=== PATIENT | male | born 1965 | race Caucasian/White ===

== ENCOUNTER 2022-11-14 10:27 | Emergency (ER) | payer MEDICAID, SELFPAY ==
--- NOTE | ~2022-11-14 | XR_ITS ---
X-RAY LUMBAR SPINE X-RAY SACRUM/COCCYX CLINICAL HISTORY: Fall, pain. COMPARISON: No relevant prior studies are available for comparison. TECHNIQUE: 3 views of the lumbar spine. 2 views of the sacrum/coccyx. FINDINGS: Lumbar spine: Age indeterminate compression deformity of the L2 vertebral body. No significant retropulsion or traumatic subluxation. Mild retrolisthesis of L5 on S1, likely degenerative. Moderate intervertebral disc height loss and facet arthropathy at L5-S1. No significant paraspinal soft tissue abnormality. A 0.6 cm radiopaque focus projecting over the lower left renal fossae could represent a calculus. Sacrum/coccyx: No displaced fractures or malalignment. SI joints are symmetric. Pubic symphysis is maintained. 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 XR/XR lumbar spine 2-3V IMPRESSION: 1. Age-indeterminate compression deformity of the L2 vertebral body. Correlate for point tenderness. 2. No traumatic subluxation. 3. Moderate lumbar spondylosis at L5-S1. 4. Possible 0.6 cm left renal calculus. If clinically indicated correlation with with a renal ultrasound could be obtained.
--- NOTE | ~2022-11-14 | XR_ITS ---
X-RAY LUMBAR SPINE X-RAY SACRUM/COCCYX CLINICAL HISTORY: Fall, pain. COMPARISON: No relevant prior studies are available for comparison. TECHNIQUE: 3 views of the lumbar spine. 2 views of the sacrum/coccyx. FINDINGS: Lumbar spine: Age indeterminate compression deformity of the L2 vertebral body. No significant retropulsion or traumatic subluxation. Mild retrolisthesis of L5 on S1, likely degenerative. Moderate intervertebral disc height loss and facet arthropathy at L5-S1. No significant paraspinal soft tissue abnormality. A 0.6 cm radiopaque focus projecting over the lower left renal fossae could represent a calculus. Sacrum/coccyx: No displaced fractures or malalignment. SI joints are symmetric. Pubic symphysis is maintained. 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 XR/XR sacrum coccyx min 2V IMPRESSION: 1. Age-indeterminate compression deformity of the L2 vertebral body. Correlate for point tenderness. 2. No traumatic subluxation. 3. Moderate lumbar spondylosis at L5-S1. 4. Possible 0.6 cm left renal calculus. If clinically indicated correlation with with a renal ultrasound could be obtained.
[2022-11-14 10:35] VITALS: BP 143/86; BP 153/93; PULSE 82; PULSE 89; RESP 20; TEMP 36.5; O2SAT 96; O2SAT 99; BMI 29.1
--- NOTE | 2022-11-14 10:44 | ED.FALL ---
HPI - Fall General Chief Complaint: Fall Stated Complaint: Low back pain per EMS Time Seen by Provider: 11/14/22 10:28 Source: patient and EMS Mode of arrival: EMS Limitations: no limitations History of Present Illness HPI Narrative: 57 yo male with history of IDDM, osteomyleitis in right foot not currently on antibiotics but followed by wound care, chronic back pain on oxycodone 10 mg q.4 hours for pain who presents to the ER after a slip and fall. Patient reports that he was in his bathroom and a pill bottle was underneath a blanket. Patient stepped on the pill bottle causing him to fall backwards landing on his lower back. Patient denies hitting his head or loss of consciousness. Patient reports this caused his oxycodone bottle to spill and all the pills to fall onto the ground. Patient reports he was planning on taking his dose of oxycodone but was unable to take this due to the fall. Patient reports chronic back pain due to an injury 12 years ago with subsequent disc injuries the lumbar spine. Patient denies any radiation of pain. No numbness or tingling of the extremities. No bowel or bladder incontinence. No saddle anesthesia. No fevers or chills. Patient reports he did hit his right foot during the fall but most of his pain is in his back. Related Data Allergies Allergy/AdvReac Type Severity Reaction Status Date / Time acetaminophen [From Vicodin] Allergy Severe Unknown Verified 11/14/22 10:34 hydrocodone [From Vicodin] Allergy Severe Unknown Verified 11/14/22 10:34 shellfish derived Allergy Severe Anaphylaxis Verified 11/14/22 10:34 Review of Systems Review of Systems: Yes all other systems are reviewed and are negative Constitutional: Constitutional: Reports no additional constitutional complaints, Denies body ache(s), Denies chills, Denies fever(s), Denies headache(s) and Denies weakness Eyes: Eyes: Reports no additional eye complaints and Denies change in vision ENT: Reports system reviewed and no additional complaints, except as documented, Denies dizziness, Denies headache(s), Denies nasal congestion, Denies nasal discharge and Denies neck pain Cardiovascular: Cardiovascular: Reports no additional cardiovascular complaints, Denies chest pain, Denies leg edema and Denies dyspnea Respiratory: Respiratory: Reports no additional respiratory complaints, Denies cough and Denies dyspnea Gastrointestinal: Gastrointestinal: Reports no additional gastrointestinal complaints, Denies abdominal pain, Denies diarrhea, Denies nausea and Denies vomiting Genitourinary: Genitourinary: Denies urinary incontinence Musculoskeletal: Musculoskeletal: Reports no additional musculoskeletal complaints, Reports back pain, Reports arthralgias, Denies joint swelling, Denies neck pain, Denies numbness and Denies tingling Integumentary/Breasts: Skin/Breast: Reports system reviewed and no additional complaints, except as docu and Denies rash Neurologic: Reports system reviewed and no additional complaints, except as documented, Denies Abnormal speech present, Denies dizziness, Denies headache(s), Denies numbness, Denies tingling and Denies weakness PMFSH Past Medical History Attestation statement: The following information was validated with the patient. Source: old records reviewed and nursing notes reviewed Medical History Anxiety Diabetes Hypertension Lower back injury Osteomyelitis of right foot Social History Social History Alcohol intake: current Alcohol intake frequency: holidays/special occasions only Smoked in Last 30 Days: No Use of substances other than those prescribed or required for medical reasons: Yes Substance Use Type: Marijuana Advance Directives: Yes Advance Directives Information Provided: Yes Advance Directives on File: No Physical Exam Vital Signs: Vital Signs: Last Vital Signs Temp 97.7 F 11/14/22 10:35 Pulse 82 11/14/22 10:35 Resp 20 11/14/22 10:35 BP 143/86 H 11/14/22 10:35 Pulse Ox 96 11/14/22 10:35 O2 Del Method Room Air 11/14/22 10:35 BMI result Body Mass Index 29.1 Const: General: cooperative, healthy appearing, comfortable and no acute distress Orientation/consciousness: patient oriented x3 Limitations: no limitations HEENT: Head: Yes normal to inspection Ears: hearing grossly normal bilaterally General nose exam: Normal external nose present Face and sinus: Yes normal facial exam Mouth: Normal oral and palatal mucosa present Throat: Yes posterior oropharynx normal Eyes: General: appearance normal, both eyes and all related structures Pupils: Equal, round and reactive pupils present Neck: Neck: Yes normal visual inspection Chest: Chest palpation & inspection: normal inspection of the chest Resp: Effort & Inspection: normal respiratory effort Auscultation: clear to auscultation bilaterally Cardio: Rate: regular rate Rhythm: regular rhythm Peripheral pulses: Peripheral pulses 2+ throughout GI: Inspection: Yes normal to inspection Palpation (GI): Soft to palpation and nontender Auscultation: normal bowel sounds Back/Spine/Pelvis: Other: +lumbar TTP to no step offs or deformities Straight leg raise normal bilaterally. Thoracic/Lumbar Spine: thoracic and lumbar spine normal to inspection Skin: General skin exam: no rashes or lesions noted Neuro: General: patient oriented x3, moves all extremities, no focal motor deficits and normal sensation to monofilament Cranial nerves: Yes CN's II-XII intact bilaterally, Yes Equal, round and reactive pupils present, Yes Bilaterally intact EOM present, Yes Nystagmus not present, Yes Normal facial strength present and Yes Midline tongue present Cognition (Neuro): normal cognition Speech: No Abnormal speech present Gait exam (Neuro): Normal gait present Motor exam (neuro): 5/5 motor strength present throughout Sensory Exam: Normal double simultaneous stimulation for sensation Deep tendon reflexes (DTR's): Right patellar reflex intensity grade: 2+ and Left patellar reflex intensity grade: 2+ Extrem: Other: To the sole of the right foot there is a wound noted with clean skin margins, no surrounding erythema.swelling or tenderness General: Yes normal to inspection Course Course Course Narrative: X-ray show IMPRESSION: 1.? Age-indeterminate compression deformity of the L2 vertebral body. Correlate for point tenderness. 2.? No traumatic subluxation. 3.? Moderate lumbar spondylosis at L5-S1. 4.? Possible 0.6 cm left renal calculus. If clinically indicated correlation with with a renal ultrasound could be obtained. Patient reports history of lumbar fractures in the past. This is not likely new. I did tell him this reports results. We did speak about the possible left renal calculi. He has no flank pain, vomiting, urinary symptoms, fever. Patient was instructed to follow-up with primary care doctor for renal ultrasound if necessary. We did discuss if he were to develop any of the symptoms he should return to the ER for further evaluation. Patient agreeable with this. Patient requesting additional oxycodone to go home with. Reviewed mass pat. Patient fills 140 tablets of 10mg on the 7th of the month. I explained to the patient that I could not give this to him. Patient will follow-up with his primary care doctor. Reviewed worrisome signs and symptoms when to return to the emergency room. Comfortable plan for discharge home for Medications Administered Discontinued Medications Generic Name Dose Route Start Last Admin Trade Name Kamryn PRN Reason Stop Dose Admin Oxycodone HCl 10 mg 11/14/22 11:14 11/14/22 11:34 Oxycodone Hcl Immed Release 5 Mg Tablet PO 11/14/22 11:15 10 mg ONCE ONE Administration Medical Decision Making Medical Decision Making MDM Narrative: 57 yo male with history of IDDM, wound on right foot, chronic back pain on chronic opiates here after mechanical fall which occurred just [employer]. Patient with tenderness on palpation of the lumbar spine and coccyx with no step-offs deformities Due to trauma will check x-rays Patient will be dose with his dose of oxycodone No overt neurological deficits or red flag symptoms on exam Differential Diagnosis Differential Diagnoses: The differential diagnosis associated with the presentation includes Doubt fracture, epidural hematoma Lab Data MDM Lab Attestation statement: I reviewed the patient's lab results. Independent Interpretation I performed an independent interpretation of an: Plain X-Ray Interpretation: I indepedentely reviewed the x-ray and agree with the radiologist report Radiology Impression Discussion of test interpretation with radiology: I have reviewed the radiologist's reading. Radiologist Impression: [place] [id number] XRay Report Signed Patient: Tyler Thomas MR#: [id number] : 1965 Acct:[id number] Age/Sex: 57 / M ADM Date: 11/14/22 Loc: HO.ED Attending Dr: Ordering Physician: Waleska Muñiz NP Date of Service: 11/14/22 Procedure(s): XR lumbar spine 2-3V Accession Number(s): [id number] cc: Waleska Muñiz NP~ X-RAY LUMBAR SPINE X-RAY SACRUM/COCCYX CLINICAL HISTORY: Fall, pain. COMPARISON:? No relevant prior studies are available for comparison. TECHNIQUE: 3 views of the lumbar spine. 2 views of the sacrum/coccyx. FINDINGS:? Lumbar spine: Age indeterminate compression deformity of the L2 vertebral body. No significant retropulsion or traumatic subluxation. Mild retrolisthesis of L5 on S1, likely degenerative. Moderate intervertebral disc height loss and facet arthropathy at L5-S1. No significant paraspinal soft tissue abnormality. A 0.6 cm radiopaque focus projecting over the lower left renal fossae could represent a calculus. Sacrum/coccyx: No displaced fractures or malalignment. SI joints are symmetric. Pubic symphysis is maintained. 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 XR/XR lumbar spine 2-3V IMPRESSION: 1.? Age-indeterminate compression deformity of the L2 vertebral body. Correlate for point tenderness. 2.? No traumatic subluxation. 3.? Moderate lumbar spondylosis at L5-S1. 4.? Possible 0.6 cm left renal calculus. If clinically indicated correlation with with a renal ultrasound could be obtained. ? Discharge Plan Discharge Clinical Impression: Compression fracture Patient Disposition: Home, Self-Care Instructions: Vertebral Compression Fracture (ED) Additional Instructions: You have a compression fracture at L2. this is age indeterminate so it may be old. Incidentally you may have a kidney stone on the left side and you may need additional outpatient follow-up for this. It is not causing your pain today. Return for urinary symptoms, fever, flank pain. Continue your home medications. Referrals: Flako Callahan MD [Primary Care Provider] - 1 week Interventions: ED Discharge Assessment Last Done: 11/14/22 12:24 Discharge Date/Time: 11/14/22 12:25
--- OUTSIDE RECORDS SUMMARY | 2022-11-14 10:50 | XMS_ITS | Continuity of Care Document ---
Author Name Unknown Organization [facility] Address [address] [place] [address]- Care Team Providers Care Cisco Network Architect Name Role Phone Ruben Callahan DOmekhi Donis Primary Care Physician [place] [facility] [place]s): 10/20/19 - 12/03/19 [facility] [address] [place] [address]- [facility] Attending Physician: Cachorro Nielsen MD Admitting Physician: Cachorro Nielsen MD Allergies, Adverse Reactions, Alerts Substance Reaction Severity Status shellfish 1 hives Active Vicodin Shellfish allergy Active 1Pt states it is only crab and lobster that he is allergic to, and that he has had iv contrast dye in the past Immunizations Given and Recorded Vaccine Date Status Refusal Reason influenza virus vaccine, inactivated 09/23/18 Give n pneumococcal 23-valent vaccine 08/01/12 Given Medications Cardizem CD 120 mg/24 hours oral capsule, extended release 120 mg, 1, capsule, By Mouth, Daily, # 30 capsule, Refills 0, Tot. Refills 0, Maintenance, :17:00 EST, Route to Pharmacy Electronically, [facility]/pharmacy #[id number], 183, cm, 09/17/19 7:23:00 EST, Height, 99.4, kg, 09/16/19 12:50:00 EST, Dry Weight Start Date: 09/17/19 Status: Ordered Flax Seed Oil oral capsule 1 capsule, By Mouth, Daily, 0 Refills, Maintenance, 04/01/19 16:16:13 EDT Start Date: 04/01/19 Status: Ordered Humalog Cartridge Subcutaneous Infusion, 0 Refills, Maintenance, 09/08/18 2:01:18 EST Start Date: 09/08/18 Status: Ordered meloxicam 15 mg oral tablet 1 tablet = 15 mg, By Mouth, Daily, # 30 tablet, 1 Refills, Maintenance, 11/29/19 8:23:00 EDT, Tablet, [facility]/pharmacy #[id number], 183, cm, 10/19/19 9:35:00 EST, Height, 99.4, kg, 09/16/19 12:50:00 EST, Dry Weight Start Date: 11/29/19 Status: Ordered Multivitamin 1, Daily, 0 Refills, Maintenance, 12/21/16 16:21:05 Start Date: 12/21/16 Status: Ordered Omeprazole = 20 mg, By Mouth, Daily, 0 Refills, Maintenance, 04/02/19 16:25:08 EDT Start Date: 04/02/19 Status: Ordered oxyCODONE 5 mg oral tablet 5 mg, 1, tablet, By Mouth, Every 6 hours, PRN, # 10 tablet, Refills 0, Tot. Refills 0, Maintenance,Pain , Severe, 09/14/19 11:11:00 EST, Route to Pharmacy Electronically, [facility]/pharmacy #[id number], Partialfill upon patient request, 183, cm, 09/14/19 9:28:0... Start Date: 09/14/19 Status: Ordered Vitamin C 1000 mg oral tablet 1 tablet = 1,000 mg, By Mouth, Daily, # 30 tablet, 0 Refills, Maintenance, 07/13/19 8:13:25 EST, Tablet Start Date: 07/13/19 Status: Ordered Vitamin D 81736 iu oral capsule 50,000 International_Units, 1, capsule, By Mouth, Every week, Refills 0, Maintenance, 04/01/19 16:15:52 EDT Start Date: 04/01/19 Status: Ordered Xarelto 20 mg oral tablet 1 tablet = 20 mg, By Mouth, Daily before dinner, 0 Refills, Maintenance, 09/07/19 8:14:00 EST Start Date: 09/07/19 Status: Ordered Social History Social History Type Response Smoking Status Never smoker entered on: 04/28/18 Sex
--- OUTSIDE RECORDS SUMMARY | 2022-11-14 10:50 | XMS_ITS | Continuity of Care Document ---
Author Name Unknown Organization [facility] [place] [address] [place] [address]- Care Team Providers Care Livestock Buyer Name Role Phone Enrico Flako LANDRY Primary Care Physician Encounter [facility] [place] Date(s): 03/09/21 - 04/14/21 [facility] [address] [facility] [address] [place] [address] [place] [phone] Attending Physician: Asuncion MAYBERRY, Luis A Admitting Physician: Asuncion MAYBERRY, Luis A Allergies, Adverse Reactions, Alerts Substance Reaction Severity Status shellfish 1 hives Active Vicodin Shellfish allergy Active 1Pt states it is only crab and lobster that he is allergic to, and that he has had iv contrast dye in the past Immunizations Given and Recorded Vaccine Date Status Refusal Reason influenza virus vaccine, inactivated 09/23/18 Give n pneumococcal 23-valent vaccine 08/01/12 Given Medications acetaminophen-oxycodone 325 mg-10 mg oral tablet 1 tablet, By Mouth, Every 4 hours, PRN Pain , Moderate, TAKE 1 TABLET BY MOUTH EVERY 4 HOURS DO NOTEXCEED 5 TABS DAILY, 0 Refills Start Date: 03/16/21 Status: Ordered amLODIPine 10 mg oral tablet 10 mg, 1, tablet, By Mouth, Daily, # 90 tablet, Refills 0, Maintenance, 04/11/20 6:57:00 EDT Start Date: 04/11/20 Status: Ordered atorvastatin 40 mg oral tablet 1 tablet = 40 mg, By Mouth, Daily, 0 Refills, Maintenance, 10/26/20 15:14:00 EST, Partial fill uponpatient request if the prescription is for a schedule II opioid drug. Start Date: 10/26/20 Status: Ordered Dakins Half Strength 0.25% topical solution See Instructions, apply to wound for 15 minutes, # 1 Unknown, 0 Refills, Maintenance, 11/09/20 8:47:00 EDT, [facility]/pharmacy #[id number], Partial fill upon patient request if the prescription is for a scheduleII opioid drug., apply to wound for 15 minutes, 182... Start Date: 11/09/20 Status: Ordered febuxostat 40 mg oral tablet 1 tablet = 40 mg, By Mouth, Daily, TAKE 1 TABLET BY MOUTH EVERY DAY Start Date: 10/08/20 Status: Ordered Flax Seed Oil oral capsule 1 capsule, By Mouth, Daily, 0 Refills, Maintenance, 04/01/19 16:16:13 EDT Start Date: 04/01/19 Status: Ordered flecainide 100 mg oral tablet 100 mg, 1, tablet, By Mouth, Every 12 hours, # 60 tablet, Refills 3, Tot. Refills 3, Maintenance, 04/12/20 9:51:00 EDT, Route to Pharmacy Electronically, [facility]/pharmacy #[id number], 183, cm, 04/12/20 8:00:00EDT, Height, 103, kg, 04/11/20 6:30:00 EDT, Dry Weight Start Date: 04/12/20 Stop Date: 08/10/20 Status: Ordered Humalog 100 u/ml subcutaneous injection Subcutaneous Injection, 3 times a day before meals, PRN Blood Glucose, Sliding scale depending on blood sugar and carbs per meal Start Date: 10/08/20 Status: Ordered indomethacin 25 mg oral capsule 1 capsule = 25 mg, By Mouth, 3 times a day, PRN for arthritis, # 30 capsule, 0 Refills, Maintenance, 12/03/20 17:17:00 EDT, Capsule, Partial fill upon patient request if the prescription is for a schedule II opioid drug. Start Date: 12/03/20 Status: Ordered Lantus 100 u/ml subcutaneous solution = 36 units, Subcutaneous Injection, Daily, at noon Start Date: 10/08/20 Status: Ordered lisinopril 10 mg oral tablet 20 mg, 2, tablet, By Mouth, Daily, # 30 tablet, Refills 0, Maintenance, 04/11/20 6:27:00 EDT Start Date: 04/11/20 Status: Ordered LORazepam 0.5 mg oral tablet 1 tablet = 0.5 mg, By Mouth, Every 8 hours, PRN as needed for anxiety, TAKE 1 TABLET BY MOUTH EVERY8 HOURS NEEDED FOR ANXIETY. Start Date: 03/16/21 Status: Ordered Lyrica 50 mg oral capsule 1 capsule = 50 mg, By Mouth, 2 times a day, # 60 capsule, 2 Refills, Maintenance, 12/21/20 10:03:00EDT, Capsule, [facility], Partial fill upon patient request if the prescription is for a schedule II opioid drug., 183, cm, 12/21/20 9:04... Start Date: 12/21/20 Stop Date: 03/21/21 Status: Ordered Metoprolol Succinate ER 50 mg oral tablet, extended release 1 tablet = 50 mg, By Mouth, Daily Start Date: 03/16/21 Status: Ordered mirtazapine 15 mg oral tablet 1 tablet = 15 mg, By Mouth, Daily at bedtime, # 30 tablet, 0 Refills, Maintenance, 04/11/20 6:59:00EDT, Tablet Start Date: 04/11/20 Status: Ordered Multivitamin 1 tablet, By Mouth, Daily, 0 Refills, Maintenance, 12/21/16 16:21:05 EDT Start Date: 12/21/16 Status: Ordered Omeprazole = 20 mg, By Mouth, Daily, 0 Refills, Maintenance, 04/02/19 16:25:08 EDT Start Date: 04/02/19 Status: Ordered ondansetron 4 mg oral tablet, disintegrating 1 tablet = 4 mg, By Mouth, Every 8 hours, PRN as needed for nausea/vomiting, # 12 tablet, 0 Refills, Maintenance, 03/08/20 19:56:00 EDT, DIS Tablet, [facility]/pharmacy #[id number], 183, cm, 03/08/20 16:59:00 EDT, Height, 108, kg, 03/08/20 16:59:00 EDT, Dry Weight Start Date: 03/08/20 Stop Date: 03/11/20 Status: Ordered probenecid 500 mg oral tablet 500 mg, 1, tablet, By Mouth, Daily, Refills 0, Maintenance, 12/12/20 16:05:00 EDT, Partial fill upon patient request if the prescription is for a schedule II opioid drug. Start Date: 12/12/20 Status: Ordered Tylenol 325 mg oral tablet 650 mg, 2, tablet, By Mouth, Every 4 hours, PRN, Refills 0, Maintenance, Pain , Moderate, 12/21/20 10:02:00 EDT, Partial fill upon patient request if the prescription is for a schedule II opioid drug. Start Date: 12/21/20 Status: Ordered Vitamin C 1000 mg oral tablet 1 tablet = 1,000 mg, By Mouth, Daily, 0 Refills, Maintenance, 12/03/20 12:07:00 EDT, Partial fill upon patient request if the prescription is for a schedule II opioid drug. Start Date: 12/03/20 Status: Ordered Vitamin D3 5000 intl units oral capsule 1 capsule = 5,000 International_Units, By Mouth, Daily, with food, # 250 capsule, 0 Refills, Maintenance, 10/26/20 15:13:00 EST, Capsule, Partial fill upon patient request if the prescription is for a schedule II opioid drug. Start Date: 10/26/20 Status: Ordered Problem List Condition Effective Dates Status Health Status Inform ant Afib(Confirmed) Active Atrial flutter(Confirmed) Active CKD stage 3(Confirmed) Active Diabetes mellitus(Confirmed) Active Diabetic foot ulcer(Confirmed) Active Peripheral neuropathy(Confirmed) Active Social History Social History Type Response Tobacco Other: none. Sex
--- OUTSIDE RECORDS SUMMARY | 2022-11-14 10:50 | XMS_ITS | Continuity of Care Document ---
Author Name Unknown Organization [facility] Address [address] [place] [address]- Care Team Providers Care Graphic Manager Name Role Phone Sindy Flako LANDRY Primary Care Physician Encounter [facility] [place] Date(s): 01/15/21 - 02/14/21 [facility] [address] [facility] [address] [place] [id number] [phone] Attending Physician: Cachorro Nielsen MD Admitting Physician: [...] pneumococcal 23-valent vaccine 08/01/12 Given Medications acetaminophen-oxycodone 300 mg-5 mg oral tablet 1 tablet, By Mouth, Every 6 hours, PRN Pain , Moderate, 0 Refills, Maintenance, 12/03/20 20:24:00 EDT, Partial fill upon patient request if the prescription is for a schedule II opioid drug. Start Date: 12/03/20 Status: Ordered amLODIPine 10 mg oral tablet [...] Unknown, 0 Refills, Maintenance, 11/09/20 8:47:00 EDT, [facility]/pharmacy #[id number], Partial fill upon patient request if [...] 04/12/20 9:51:00 EDT, Route to Pharmacy Electronically, [facility]/pharmacy #[id number], 183, cm, 04/12/20 8:00:00EDT, Height, 103, kg, 04/11/20 6:30:00 EDT, Dry Weight Start Date: 04/12/20 Stop Date: 08/10/20 Status: Ordered Humalog 100 u/ml subcutaneous injection 3 times a day before meals Start Date: 10/08/20 Status: Ordered indomethacin 25 [...] 6:27:00 EDT Start Date: 04/11/20 Status: Ordered Lyrica 50 mg oral capsule 1 capsule = 50 mg, By Mouth, 2 times a day, # 60 capsule, 2 Refills, Maintenance, 12/21/20 10:03:00EDT, Capsule, [facility], Partial fill upon patient request if the prescription is for a schedule II opioid drug., 183, cm, 12/21/20 9:04... Start Date: 12/21/20 Stop Date: 03/21/21 Status: Ordered metoprolol 25 mg oral tablet 25 mg, 1, tablet, By Mouth, Daily, Refills 0, Maintenance, 12/12/20 16:06:00 EDT, Partial fill uponpatient request if the prescription is for a schedule II opioid drug. Start Date: 12/12/20 Status: Ordered mirtazapine 15 mg oral tablet [...] Refills, Maintenance, 03/08/20 19:56:00 EDT, DIS Tablet, [facility]/pharmacy #[id number], 183, cm, 03/08/20 16:59:00 EDT, Height, [...] 2, tablet, By Mouth, Every 4 hours, Refills 0, Maintenance, 12/21/20 10:02:00 EDT, Partial fill upon patient [...] Active Social History Social History Type Response Smoking Status Never smoker entered on: 04/28/18 Sex
--- OUTSIDE RECORDS SUMMARY | 2022-11-14 10:50 | XMS_ITS | Continuity of Care Document ---
Author Name Unknown Organization [facility] W[facility] Address [address] [place] [address]- Care Team Providers Care Records Management Coordinator Name Role Phone Sindy Flako LANDRY Primary Care Physician Encounter [facility] Date(s): 01/18/21 - 02/20/21 [facility] [address] [facility] [address] [place] [id number] [phone] Attending Physician: Cachorro Nielsen MD Admitting Physician: [...] Unknown, 0 Refills, Maintenance, 11/09/20 8:47:00 EDT, [facility]/pharmacy #[id number], Partial fill upon patient request [...] 04/12/20 9:51:00 EDT, Route to Pharmacy Electronically, [facility]/pharmacy #[id number], 183, cm, 04/12/20 8:00:00EDT, Height, [...] capsule, 2 Refills, Maintenance, 12/21/20 10:03:00EDT, Capsule, [facility], Partial fill upon patient request [...] Refills, Maintenance, 03/08/20 19:56:00 EDT, DIS Tablet, [facility]/pharmacy #[id number], 183, cm, 03/08/20 16:59:00 EDT, [...]
--- OUTSIDE RECORDS SUMMARY | 2022-11-14 10:50 | XMS_ITS | Continuity of Care Document ---
Author Name Unknown Organization [facility] Address [address] [place] [address]- Care Team Providers Care Environmental Engineer Scientist Name Role Phone Ruben Callahan DOn Gagandeep Primary Care Physician Encounter [facility] Date(s): 03/07/20 - 04/07/20 [facility] [address] [place] [address]- [facility] Attending Physician: Cachorro Nielsen MD [...] n pneumococcal 23-valent vaccine 08/01/12 Given Medications acetaminophen-oxyCODONE 325 mg-5 mg oral tablet 1, tablet, By Mouth, Every 4 hours, PRN, # 5 tablet, Refills 0, Tot. Refills 0, Maintenance, for pain, 03/25/20 0:20:00 EDT, Route to Pharmacy Electronically, [facility]/pharmacy #[id number] Tablet, Partial fill upon patient request, 183, cm, 03/25/20 0:19:00 EDT,... Start Date: 03/25/20 Status: Ordered Cardizem CD 120 mg/24 hours oral capsule, extended release 120 mg, 1, capsule, By Mouth, Daily, # 30 capsule, Refills 0, Tot. Refills 0, Maintenance, 209:17:00 EST, Route to Pharmacy Electronically, [facility]/pharmacy #[id number], 183, cm, 09/17/19 7:23:00 EST, Height, 99.4, kg, 09/16/19 12:50:00 EST, Dry Weight Start Date: 09/17/19 Status: Ordered Eliquis 2.5 mg oral tablet 1 tablet = 2.5 mg, By Mouth, 2 times a day, 0 Refills, Maintenance, 12/22/19 9:28:00 EDT Start Date: 12/22/19 Status: Ordered Eliquis 2.5 mg oral tablet 1 tablet = 2.5 mg, By Mouth, 2 times a day, 0 Refills, Maintenance, 02/23/20 8:50:00 EDT Start Date: 02/23/20 Status: Ordered Flax Seed Oil oral capsule 1 capsule, By Mouth, Daily, 0 Refills, Maintenance, 04/01/19 16:16:13 EDT Start Date: 04/01/19 Status: Ordered Humalog Cartridge Subcutaneous Infusion, 0 Refills, Maintenance, 09/08/18 2:01:18 EST Start Date: 09/08/18 Status: Ordered Lasix 20 mg oral tablet 20 mg, 1, tablet, By Mouth, Daily, Refills 0, Maintenance, 02/08/20 8:44:00 EDT Start Date: 02/08/20 Status: Ordered meloxicam 15 mg oral tablet 1 tablet = 15 mg, By Mouth, Daily, # 30 tablet, 1 Refills, Maintenance, 01/30/20 13:36:00 EDT, Tablet, [facility]/pharmacy #[id number], 183, cm, 01/19/20 9:23:00 EDT, Height, 99.4, kg, 09/16/19 12:50:00 EST, Dry Weight Start Date: 01/30/20 Status: Ordered Multivitamin 1, Daily, 0 Refills, [...] Refills, Maintenance, 03/08/20 19:56:00 EDT, DIS Tablet, [facility]/pharmacy #[id number], 183, cm, 03/08/20 16:59:00 EDT, Height, 108, kg, 03/08/20 16:59:00 EDT, Dry Weight Start Date: 03/08/20 Stop Date: 03/11/20 Status: Ordered oxyCODONE 5 mg oral tablet 5 mg, 1, tablet, By Mouth, Every 6 hours, PRN, # 10 tablet, Refills 0, Tot. Refills 0, Maintenance,Pain , Severe, 09/14/19 11:11:00 EST, Route to Pharmacy Electronically, [facility]/pharmacy #[id number], Partialfill upon patient request, 183, cm, 09/14/19 9:28:0... Start Date: 09/14/19 Status: Ordered Vitamin C 1000 mg oral tablet 1 tablet = 1,000 mg, By Mouth, Daily, # 30 tablet, 0 Refills, Maintenance, 07/13/19 8:13:25 EST, Tablet Start Date: 07/13/19 Status: Ordered Vitamin D 89565 iu oral capsule 50,000 International_Units, 1, capsule, [...]
--- OUTSIDE RECORDS SUMMARY | 2022-11-14 10:50 | XMS_ITS | Continuity of Care Document ---
Author Name Unknown Organization [facility] Address [address] [place] [address]- Care Team Providers Care Slabbing Machine Operator Name Role Phone Flako Callahan DO Primary Care Physician Encounter [facility] Date(s): 08/06/20 - 09/05/20 [facility] W[facility] Care [address] [place], [place] [address] Attending Physician: Lion Vann Admitting Physician: AdmtrLion Referring Physician: AdmtrLion Allergies, Adverse Reactions, Alerts Substance Reaction Severity [...] 03/25/20 0:20:00 EDT, Route to Pharmacy Electronically, [facility]/pharmacy #[id number] Tablet, Partial fill upon patient request, 183, cm, 03/25/20 0:19:00 EDT,... Start Date: 03/25/20 Status: Ordered amLODIPine 10 mg oral tablet 10 mg, 1, tablet, By Mouth, Daily, # 90 tablet, Refills 0, Maintenance, 04/11/20 6:57:00 EDT Start Date: 04/11/20 Status: Ordered Eliquis 5 mg oral tablet 1 tablet = 5 mg, By Mouth, 2 times a day, 0 Refills, Maintenance, 04/12/20 9:50:00 EDT, Tablet Start Date: 04/12/20 Status: Ordered Flax Seed Oil oral capsule 1 capsule, By Mouth, Daily, 0 Refills, Maintenance, 04/01/19 16:16:13 EDT Start Date: 04/01/19 Status: Ordered flecainide 100 mg oral tablet 100 mg, 1, tablet, By Mouth, Every 12 hours, # 60 tablet, Refills 3, Tot. Refills 3, Maintenance, 04/12/20 9:51:00 EDT, Route to Pharmacy Electronically, [facility]/pharmacy #[id number], 183, cm, 04/12/20 8:00:00EDT, Height, 103, kg, 04/11/20 6:30:00 EDT, Dry Weight Start Date: 04/12/20 Stop Date: 08/10/20 Status: Ordered Humalog Cartridge Subcutaneous Infusion, 0 Refills, Maintenance, 09/08/18 2:01:18 EST Start Date: 09/08/18 Status: Ordered Lasix 20 mg oral tablet 20 mg, 1, tablet, By Mouth, Daily, Refills 0, Maintenance, 02/08/20 8:44:00 EDT Start Date: 02/08/20 Status: Ordered lisinopril 10 mg oral tablet 20 mg, 2, tablet, By Mouth, Daily, # 30 tablet, Refills 0, Maintenance, 04/11/20 6:27:00 EDT Start Date: 04/11/20 Status: Ordered meloxicam 15 mg oral tablet 1 tablet = 15 mg, By Mouth, Daily, # 30 tablet, 1 Refills, Maintenance, 04/20/20 16:24:00 EDT, [facility]/pharmacy #[id number], 183, cm, 04/17/20 14:57:00 EDT, Height, 103.5, kg, 04/14/20 14:39:00 EDT, Dry Weight Start Date: 04/20/20 Status: Ordered metoprolol 50 mg oral tablet 50 mg, 1, tablet, By Mouth, Daily, # 60 tablet, Refills 0, Maintenance, 04/11/20 6:58:00 EDT Start Date: 04/11/20 Status: Ordered mirtazapine 15 mg oral tablet 1 tablet = 15 mg, By Mouth, Daily at bedtime, # 30 tablet, 0 Refills, Maintenance, 04/11/20 6:59:00EDT, Tablet Start Date: 04/11/20 Status: Ordered Multivitamin 1, Daily, 0 Refills, [...] Refills, Maintenance, 03/08/20 19:56:00 EDT, DIS Tablet, [facility]/pharmacy #[id number], 183, cm, 03/08/20 16:59:00 EDT, Height, 108, kg, 03/08/20 16:59:00 EDT, Dry Weight Start Date: 03/08/20 Stop Date: 03/11/20 Status: Ordered oxyCODONE 5 mg oral tablet 5 mg, 1, tablet, By Mouth, Every 6 hours, PRN, # 10 tablet, Refills 0, Tot. Refills 0, Maintenance,Pain , Severe, 09/14/19 11:11:00 EST, Route to Pharmacy Electronically, [facility]/pharmacy #[id number], Partialfill upon patient request, 183, cm, 09/14/19 9:28:0... Start Date: 09/14/19 Status: Ordered Vitamin C 1000 mg oral tablet 1 tablet = 1,000 mg, By Mouth, Daily, # 30 tablet, 0 Refills, Maintenance, 07/13/19 8:13:25 EST, Tablet Start Date: 07/13/19 Status: Ordered Vitamin D 02121 iu oral capsule 50,000 International_Units, 1, capsule, By Mouth, Every week, Refills 0, Maintenance, 04/01/19 16:15:52 EDT Start Date: 04/01/19 Status: Ordered Problem List Condition Effective Dates Status Health Status Inform ant Afib(Confirmed) Active Atrial flutter(Confirmed) Active Social History Social History Type Response Smoking Status Never smoker entered on: 04/28/18 Sex
--- OUTSIDE RECORDS SUMMARY | 2022-11-14 10:50 | XMS_ITS | Continuity of Care Document ---
Author Name Unknown Organization [facility] Address [address] [place] [address]- Care Team Providers Care Director Of Vocational Training Name Role Phone Flako Callahan DO Primary Care Physician Encounter [facility] Date(s): 11/28/20 - 12/29/20 [facility] [address] [address] [phone] Attending Physician: Cachorro Nielsen MD Admitting Physician: [...] 6:57:00 EDT Start Date: 04/11/20 Status: Ordered aspirin 81 mg oral tablet, chewable 81 mg, 1, tablet, By Mouth, Daily, # 30 tablet, Refills 2, Tot. Refills 2, Maintenance, 12/21/20 10:03:00 EDT, [facility], Partial fill upon patient request if the prescription is for a schedule II opioi... Start Date: 12/21/20 Stop Date: 03/21/21 Status: Ordered atorvastatin 40 mg oral tablet 1 tablet = 40 mg, By Mouth, Daily, 0 Refills, Maintenance, 10/26/20 15:14:00 EST, Partial fill uponpatient request if the prescription is for a schedule II opioid drug. Start Date: 10/26/20 Status: Ordered Dakins Half Strength 0.25% topical solution See Instructions, apply to wound for 15 minutes, # 1 Unknown, 0 Refills, Maintenance, 11/09/20 8:47:00 EDT, [facility]/pharmacy #[id number], Partial fill upon patient request if [...] 04/12/20 9:51:00 EDT, Route to Pharmacy Electronically, [facility]/pharmacy #[id number], 183, cm, 04/12/20 8:00:00EDT, Height, 103, kg, 04/11/20 6:30:00 EDT, Dry Weight Start Date: 04/12/20 Stop Date: 08/10/20 Status: Ordered gabapentin 100 mg oral capsule 100 mg, 1, capsule, By Mouth, 3 times a day, # 90 capsule, Refills 2, Tot. Refills 2, Maintenance, 12/21/20 10:03:00 EDT, Route to Pharmacy Electronically, [facility], Partial fill uponpatient request if the prescription is for a schedu... Start Date: 12/21/20 Stop Date: 03/21/21 Status: Ordered Humalog 100 u/ml subcutaneous injection [...] capsule, 2 Refills, Maintenance, 12/21/20 10:03:00EDT, Capsule, [facility], Partial fill upon patient request if [...] Refills, Maintenance, 03/08/20 19:56:00 EDT, DIS Tablet, [facility]/pharmacy #[id number], 183, cm, 03/08/20 16:59:00 EDT, Height, [...]
--- OUTSIDE RECORDS SUMMARY | 2022-11-14 10:50 | XMS_ITS | Continuity of Care Document ---
Author Name Unknown Organization [facility] Address [address] [place] [address]- Care Team Providers Care Sulphate Tester Name Role Phone Sindy Flako LANDRY Primary Care Physician [phone] Encounter [facility] Date(s): 03/08/21 - 04/13/21 [facility] [address] [facility] [address] [place] [address] [phone] Attending Physician: Cachorro Nielsen MD Admitting Physician: [...] Unknown, 0 Refills, Maintenance, 11/09/20 8:47:00 EDT, [facility]/pharmacy #[id number], Partial fill upon patient request [...] 04/12/20 9:51:00 EDT, Route to Pharmacy Electronically, [facility]/pharmacy #[id number], 183, cm, 04/12/20 8:00:00EDT, Height, [...] capsule, 2 Refills, Maintenance, 12/21/20 10:03:00EDT, Capsule, [facility], Partial fill upon patient request [...] Refills, Maintenance, 03/08/20 19:56:00 EDT, DIS Tablet, [facility]/pharmacy #[id number], 183, cm, 03/08/20 16:59:00 EDT, [...]
--- OUTSIDE RECORDS SUMMARY | 2022-11-14 10:50 | XMS_ITS | Continuity of Care Document ---
Author Name Unknown Organization [facility] Address [address] [place] [address]- Care Team Providers Care Golf Teacher Name Role Phone Sindy Flako LANDRY Primary Care Physician Encounter [facility] Date(s): 02/28/21 - 04/05/21 [facility] Care [address] [address] [phone] Attending Physician: Cachorro Nielsen MD Admitting Physician: [...] Unknown, 0 Refills, Maintenance, 11/09/20 8:47:00 EDT, [facility]/pharmacy #[id number], Partial fill upon patient request [...] 04/12/20 9:51:00 EDT, Route to Pharmacy Electronically, [facility]/pharmacy #[id number], 183, cm, 04/12/20 8:00:00EDT, Height, [...] capsule, 2 Refills, Maintenance, 12/21/20 10:03:00EDT, Capsule, [facility], Partial fill upon patient [...]
--- OUTSIDE RECORDS SUMMARY | 2022-11-14 10:50 | XMS_ITS | Continuity of Care Document ---
Author Name Unknown Organization [facility] Address [address] [place] [address]- Care Team Providers Care Facility Sales And Admin Name Role Phone Sindy Flako LANDRY Primary Care Physician En[place] [facility] Date(s[facility] 10/26/20 - 11/02/20 [facility] Care [address] [place], [place] [address] Attending Physician: Luis A Roland NP Admitting Physician: Luis A Roland NP Referring Physician: Luis A Roland NP Allergies, Adverse Reactions, Alerts Substance Reaction Severity Status shellfish 1 hives Active Vicodin Shellfish allergy Active 1Pt states it is only crab and lobster that he is allergic to, and that he has had iv contrast dye in the past Immunizations Given and Recorded Vaccine Date Status Refusal Reason influenza virus vaccine, inactivated 09/23/18 Give n pneumococcal 23-valent vaccine 08/01/12 Given Medications amLODIPine 10 mg oral tablet 10 mg, [...] opioid drug. Start Date: 10/26/20 Status: Ordered doxycycline monohydrate 100 mg oral tablet = 100 mg, By Mouth, Every 12 hours, # 12 capsule, 0 Refills, Acute 11/07/20 10:00:00 EDT, 11/01/20 14:53:00 EDT, Tablet, [id number], Partial fill upon patient request if the prescription is for a schedule II opioid drug., 182, cm, 11/01/20 11:... Start Date: 11/01/20 Stop Date: 11/07/20 Status: Ordered febuxostat 40 mg oral tablet [...] 04/12/20 9:51:00 EDT, Route to Pharmacy Electronically, [facility]/pharmacy #[id number], 183, cm, 04/12/20 8:00:00EDT, Height, 103, kg, 04/11/20 6:30:00 EDT, Dry Weight Start Date: 04/12/20 Stop Date: 08/10/20 Status: Ordered Humalog 100 u/ml subcutaneous injection 3 times a day before meals Start Date: 10/08/20 Status: Ordered Lantus 100 u/ml subcutaneous solution = 10 units, Subcutaneous Injection, Daily, at noon Start Date: 10/08/20 Status: Ordered lisinopril 10 mg oral tablet 20 mg, 2, tablet, By Mouth, Daily, # 30 tablet, Refills 0, Maintenance, 04/11/20 6:27:00 EDT Start Date: 04/11/20 Status: Ordered Metoprolol Succinate ER 50 mg oral tablet, extended release 1 tablet = 50 mg, By Mouth, Daily, TAKE 1 TABLET BY MOUTH EVERY DAY Start Date: 10/08/20 Status: Ordered mirtazapine 15 mg oral tablet [...] Refills, Maintenance, 03/08/20 19:56:00 EDT, DIS Tablet, [facility]/pharmacy #[id number], 183, cm, 03/08/20 16:59:00 EDT, Height, 108, kg, 03/08/20 16:59:00 EDT, Dry Weight Start Date: 03/08/20 Stop Date: 03/11/20 Status: Ordered Percocet 10 mg-325 mg oral tablet 1 tablet, By Mouth, Every 4 hours, # 18 tablet, 0 Refills, Acute 11/04/20 10:00:00 EDT, 11/01/20 14:54:00 EDT, [facility]/pharmacy #[id number], Partial fill upon patient request if the prescription is for a schedule II opioid drug., 1 tablet By Mouth Every 4 hours... Start Date: 11/01/20 Stop Date: 11/04/20 Status: Ordered Probenecid 100 mg, By Mouth, 2 times a day, Refills 0, Maintenance, 10/26/20 15:10:00 EST, Partial fill upon patient request if the prescription is for a schedule II opioid drug. Start Date: 10/26/20 Status: Ordered Vitamin D3 5000 intl units [...]
--- OUTSIDE RECORDS SUMMARY | 2022-11-14 10:50 | XMS_ITS | Continuity of Care Document ---
Author Name Unknown Organization [facility] Address [address] [place] [address]- Care Team Providers Care Sustainable Agriculture Faculty Name Role Phone Sindy Flako LANDRY Primary Care Physician [phone] Encounter [facility] Date(s): 02/25/21 - 03/28/21 [facility] Care [address] [address] [phone] Attending Physician: Cachorro Nielsen MD Admitting Physician: [...] Unknown, 0 Refills, Maintenance, 11/09/20 8:47:00 EDT, [facility]/pharmacy #[id number], Partial fill upon patient [...] 04/12/20 9:51:00 EDT, Route to Pharmacy Electronically, [facility]/pharmacy #[id number], 183, cm, 04/12/20 8:00:00EDT, [...] capsule, 2 Refills, Maintenance, 12/21/20 10:03:00EDT, Capsule, [facility], Partial fill upon patient [...] Refills, Maintenance, 03/08/20 19:56:00 EDT, DIS Tablet, [facility]/pharmacy #[id number], 183, cm, 03/08/20 16:59:00 [...]
--- OUTSIDE RECORDS SUMMARY | 2022-11-14 10:50 | XMS_ITS | Continuity of Care Document ---
Author Name Unknown Organization [facility] Address [address] [place] [address]- Care Team Providers Care High Lighter Name Role Phone Sindy Flako LANDRY Primary Care Physician Encounter [facility] Date(s): 01/18/21 - 02/21/21 [facility] 48 [facility] [address] [place] [address] [phone] Attending Physician: Cachorro Nielsen MD Admitting Physician: [...] Unknown, 0 Refills, Maintenance, 11/09/20 8:47:00 EDT, [facility]/pharmacy #[id number], Partial fill upon patient request if [...] 04/12/20 9:51:00 EDT, Route to Pharmacy Electronically, [facility]/pharmacy #[id number], 183, cm, 04/12/20 8:00:00EDT, Height, 103, [...] capsule, 2 Refills, Maintenance, 12/21/20 10:03:00EDT, Capsule, [facility], Partial fill upon patient request [...] Refills, Maintenance, 03/08/20 19:56:00 EDT, DIS Tablet, [facility]/pharmacy #[id number], 183, cm, 03/08/20 16:59:00 EDT, Height, [...]
--- OUTSIDE RECORDS SUMMARY | 2022-11-14 10:50 | XMS_ITS | Continuity of Care Document ---
Author Name Unknown Organization [facility] Address [address] [place] [address]- Care Team Providers Care Professor Of Oceanography Name Role Phone Enrico Flako LANDRY Primary Care Physician Encounter [facility] Date(s): 04/06/20 - 05/12/20 [facility] W[facility] Care [address] [place] [address] [facility] Attending Physician: Cachorro Nielsen MD Admitting Physician: [...] 03/25/20 0:20:00 EDT, Route to Pharmacy Electronically, [facility]/pharmacy #[id number] Tablet, Partial fill upon patient [...] 04/12/20 9:51:00 EDT, Route to Pharmacy Electronically, [facility]/pharmacy #[id number], 183, cm, 04/12/20 8:00:00EDT, Height, [...] tablet, 1 Refills, Maintenance, 04/20/20 16:24:00 EDT, [facility]/pharmacy #[id number], 183, cm, 04/17/20 14:57:00 EDT, Height, [...] Refills, Maintenance, 03/08/20 19:56:00 EDT, DIS Tablet, [facility]/pharmacy #[id number], 183, cm, 03/08/20 16:59:00 EDT, Height, 108, kg, 03/08/20 16:59:00 EDT, Dry Weight Start Date: 03/08/20 Stop Date: 03/11/20 Status: Ordered oxyCODONE 5 mg oral tablet 5 mg, 1, tablet, By Mouth, Every 6 hours, PRN, # 10 tablet, Refills 0, Tot. Refills 0, Maintenance,Pain , Severe, 09/14/19 11:11:00 EST, Route to Pharmacy Electronically, [facility]/pharmacy #[id number], Partialfill upon patient request, 183, cm, 09/14/19 9:28:0... Start Date: 09/14/19 Status: Ordered Vitamin C 1000 mg oral tablet 1 tablet = 1,000 mg, By Mouth, Daily, # 30 tablet, 0 Refills, Maintenance, 07/13/19 8:13:25 EST, Tablet Start Date: 07/13/19 Status: Ordered Vitamin D 28172 iu oral capsule 50,000 International_Units, 1, capsule, By Mouth, Every week, Refills 0, Maintenance, 04/01/19 16:15:52 EDT Start Date: 04/01/19 Status: Ordered Problem List Condition Effective Dates Status Health Status Inform ant Afib(Confirmed) Active Atrial flutter(Confirmed) Active Social History Social History Type Response Smoking Status Never smoker entered on: 04/28/18 Sex
--- OUTSIDE RECORDS SUMMARY | 2022-11-14 10:50 | XMS_ITS | Continuity of Care Document ---
Author Name Unknown Organization [facility] Address [address] [place] [address]- Care Team Providers Care Real Estate Legal Secretary Name Role Phone Sindy Flako LANDRY Primary Care Physician Encounter [facility] Date(s): 04/05/21 - 05/08/21 [facility] [address] [address] [phone] Attending Physician: Cachorro Nielsen MD Admitting Physician: [...] Unknown, 0 Refills, Maintenance, 11/09/20 8:47:00 EDT, [facility]/pharmacy #[id number], Partial fill upon patient request [...] 04/12/20 9:51:00 EDT, Route to Pharmacy Electronically, [facility]/pharmacy #[id number], 183, cm, 04/12/20 8:00:00EDT, Height, [...] capsule, 2 Refills, Maintenance, 12/21/20 10:03:00EDT, Capsule, [facility], Partial fill upon patient [...] Refills, Maintenance, 03/08/20 19:56:00 EDT, DIS Tablet, [facility]/pharmacy #[id number], 183, cm, 03/08/20 16:59:00 EDT, [...]
--- OUTSIDE RECORDS SUMMARY | 2022-11-14 10:50 | XMS_ITS | Continuity of Care Document ---
Author Name Unknown Organization [facility] Address [address] [place] [address]- Care Team Providers Care Contract Associate Name Role Phone Sindy LANDRY Flako Donis Primary Care Physician En[place] [facility] Date(s): 10/29/20 - 12/02/20 [facility] [address] [place], [place] [address] Attending Physician: Luis A Roland NP Admitting Physician: Luis A Roland NP Allergies, Adverse [...] Unknown, 0 Refills, Maintenance, 11/09/20 8:47:00 EDT, [id number], Partial fill upon patient request [...] 04/12/20 9:51:00 EDT, Route to Pharmacy Electronically, [facility]/pharmacy #[id number], 183, cm, 04/12/20 8:00:00EDT, Height, [...] Refills, Maintenance, 03/08/20 19:56:00 EDT, DIS Tablet, [id number], 183, cm, 03/08/20 16:59:00 EDT, Height, 108, kg, 03/08/20 16:59:00 EDT, Dry Weight Start Date: 03/08/20 Stop Date: 03/11/20 Status: Ordered Probenecid 100 mg, By Mouth, [...]
--- OUTSIDE RECORDS SUMMARY | 2022-11-14 10:50 | XMS_ITS | Continuity of Care Document ---
Author Name Unknown Organization [facility] Address [address] [place] [address]- Care Team Providers Care Industrial Radiographer Name Role Phone Flako Callahan DO Primary Care Physician [phone] [place] [facility] [place] 05/22/21 - 06/21/21 [facility] [place] [address] [place] [address]- Attending Physician: Lion Vann Admitting Physician: Lion Vann Referring Physician: Lion Vann Allergies, Adverse Reactions, Alerts Substance Reaction Severity [...] Unknown, 0 Refills, Maintenance, 11/09/20 8:47:00 EDT, [facility]/pharmacy #[id number], Partial fill upon [...] 04/12/20 9:51:00 EDT, Route to Pharmacy Electronically, [facility]/pharmacy #[id number], 183, cm, 04/12/20 [...] capsule, 2 Refills, Maintenance, 12/21/20 10:03:00EDT, Capsule, [facility], Partial fill upon patient [...] Refills, Maintenance, 03/08/20 19:56:00 EDT, DIS Tablet, [facility]/pharmacy #[id number], 183, cm, 03/08/20 [...]
--- OUTSIDE RECORDS SUMMARY | 2022-11-14 10:51 | XMS_ITS | Continuity of Care Document ---
Author Name Unknown Organization [facility] Address [address] [place] [address]- Care Team Providers Care Buckle Attaching Machine Operator Name Role Phone Flako Callahan DO Primary Care Physician [phone] Encounter [facility] [place] Date(s): 04/28/22 - 05/31/22 [facility] [address] [address] [phone] Attending Physician: Cachorro Nielsen MD Admitting Physician: Cachorro Nielsen MD Referring Physician: Flako Callahan DO Allergies, Adverse Reactions, Alerts Substance Reaction Severity [...] Unknown, 0 Refills, Maintenance, 11/09/20 8:47:00 EDT, [facility]/pharmacy #[id number], Partial fill upon [...] 04/12/20 9:51:00 EDT, Route to Pharmacy Electronically, [facility]/pharmacy #[id number], 183, cm, 04/12/20 [...] Refills, Maintenance, 03/08/20 19:56:00 EDT, DIS Tablet, [facility]/pharmacy #[id number], 183, cm, 03/08/20 [...] Date: 10/26/20 Status: Ordered Problem List Condition Confirmation Course Effective Dates Status Health St atus Informant Afib Confirmed Active Atrial flutter Confirmed Active CKD stage 3 Confirmed Active Diabetes mellitus Confirmed Active Diabetic foot ulcer Confirmed Active Peripheral neuropathy Confirmed Active Social History Social History Type Response Tobacco Other: none. Sex Patient Care team information Personnel Name: Flako Callahan DO Address: Address: [address] [place], [place] [address]
--- OUTSIDE RECORDS SUMMARY | 2022-11-14 10:51 | XMS_ITS | Continuity of Care Document ---
Author Name Unknown Organization [facility] Address [address] [place] [address]- Care Team Providers Care Identity Management Consultant Name Role Phone Ruben Callahan DOmekhi Donis Primary Care Physician Encounter [facility] Date(s): 09/15/19 - 10/21/19 [facility] [address] [place] [address]- [facility] Attending Physician: Cachorro Nielsen MD [...] Maintenance, :17:00 EST, Route to Pharmacy Electronically, [facility]/pharmacy #[id number], 183, cm, 09/17/19 7:23:00 EST, Height, [...] Daily, # 30 tablet, 1 Refills, Maintenance, 09/14/19 13:06:00 EST, Tablet, [facility]/pharmacy #[id number], 183, cm, 09/14/19 9:28:00 EST, Height, 97.8, kg, 09/14/19 9:28:00 EST, Dry Weight Start Date: 09/14/19 Status: Ordered Multivitamin 1, Daily, 0 Refills, [...] 09/14/19 11:11:00 EST, Route to Pharmacy Electronically, [facility]/pharmacy #[id number], Partialfill upon patient request, 183, cm, 09/14/19 9:28:0... Start Date: 09/14/19 Status: Ordered Vitamin C 1000 mg oral tablet 1 tablet = 1,000 mg, By Mouth, Daily, # 30 tablet, 0 Refills, Maintenance, 07/13/19 8:13:25 EST, Tablet Start Date: 07/13/19 Status: Ordered Vitamin D 91733 iu oral capsule 50,000 International_Units, 1, capsule, [...]
--- OUTSIDE RECORDS SUMMARY | 2022-11-14 10:51 | XMS_ITS | Continuity of Care Document ---
Author Name Unknown Organization [facility] Address [address] [place] [address]- Care Team Providers Care Rehab Trainer Name Role Phone Flako Callahan DO Primary Care Physician [phone] [place] [facility] [place] 07/23/21 - 08/23/21 [facility] [address] [facility] [address] [place] [address]- [phone] Attending Physician: Cachorro Nielsen MD Admitting Physician: [...] Unknown, 0 Refills, Maintenance, 11/09/20 8:47:00 EDT, [facility]/pharmacy #[id number], Partial fill upon [...] 04/12/20 9:51:00 EDT, Route to Pharmacy Electronically, [facility]/pharmacy #[id number], 183, cm, 04/12/20 [...] capsule, 2 Refills, Maintenance, 12/21/20 10:03:00EDT, Capsule, [facility], Partial fill upon patient [...] Refills, Maintenance, 03/08/20 19:56:00 EDT, DIS Tablet, [facility]/pharmacy #[id number], 183, cm, 03/08/20 [...]
--- OUTSIDE RECORDS SUMMARY | 2022-11-14 10:51 | XMS_ITS | Continuity of Care Document ---
Author Name Unknown Organization [facility] Address [address] [place] [address]- Care Team Providers Care Guest Services Attendant Name Role Phone Flako Callahan DO Primary Care Physician Encounter [facility] [place] Date(s): 10/08/20 - 10/09/[address] [address] [phone] Encounter Diagnosis Diabetic foot ulcer(Final) - 10/08/20 Diabetic foot ulcer(Final) - 10/08/20 Discharge Disposition: A-D/C Home Attending Physician: Elizabeth Ellis MD Admitting Physician: Elizabeth Ellis MD Referring Physician: Not on Staff, Referring MD Allergies, Adverse Reactions, Alerts Substance Reaction [...] oral tablet 1, tablet, By Mouth, Every 8 hours, PRN, TAKE 1 TABLET BY MOUTH EVERY 8 HOURS NEEDED FOR PAIN, Pain , Moderate Start Date: 10/08/20 Status: Ordered amLODIPine 10 mg oral tablet 10 mg, 1, tablet, By Mouth, Daily, # 90 tablet, Refills 0, Maintenance, 04/11/20 6:57:00 EDT Start Date: 04/11/20 Status: Ordered amLODIPine 10 mg oral tablet 10 mg, Tablet, By Mouth, 10/09/20 9:00:00 EST Start Date: 10/09/20 Stop Date: 10/09/20 Status: Completed amoxicillin-clavulanate 875 mg-125 mg oral tablet = 875 mg, By Mouth, 2 times a day, for 10 days, # 20 tablet, 0 Refills, Acute 10/19/20 11:25:00 EST, 10/09/20 11:25:00 EST, Tablet, [facility]/pharmacy #[id number], Partial fill upon patient request if the prescription is for a schedule II opioid drug., 188, cm, 0... Start Date: 10/09/20 Stop Date: 10/19/20 Status: Ordered doxycycline monohydrate 100 mg oral capsule = 100 mg, By Mouth, Every 12 hours, for 10 days, # 20 capsule, 0 Refills, Acute 10/19/20 11:26:00 EST, 10/09/20 11:26:00 EST, Capsule, [facility]/pharmacy #[id number], Partial fill upon patient request if the prescription is for a schedule II opioid drug., 188, cm... Start Date: 10/09/20 Stop Date: 10/19/20 Status: Ordered febuxostat 40 mg oral tablet [...] 04/12/20 9:51:00 EDT, Route to Pharmacy Electronically, [facility]/pharmacy #[id number], 183, cm, 04/12/20 8:00:00EDT, Height, 103, kg, 04/11/20 6:30:00 EDT, Dry Weight Start Date: 04/12/20 Stop Date: 08/10/20 Status: Ordered Humalog 100 u/ml subcutaneous injection USE UP TO 120 UNITS DAILY VIA PUMP DIRECTED. E10.22, E 10.1593 Start Date: 10/08/20 Status: Ordered Lantus 100 u/ml subcutaneous solution = 36 units, Subcutaneous Injection, Daily, at noon Start Date: 10/08/20 Status: Ordered lisinopril 10 mg oral tablet 20 mg, 2, tablet, By Mouth, Daily, # 30 tablet, Refills 0, Maintenance, 04/11/20 6:27:00 EDT Start Date: 04/11/20 Status: Ordered lisinopril 10 mg oral tablet 20 mg, Tablet, By Mouth, 10/09/20 9:00:00 EST Start Date: 10/09/20 Stop Date: 10/09/20 Status: Completed metoprolol 50 mg oral tablet, extended release 50 mg, XL Tablet, By Mouth, 10/09/20 9:00:00 EST Start Date: 10/09/20 Stop Date: 10/09/20 Status: Completed Metoprolol Succinate ER 50 mg oral tablet, [...] Refills, Maintenance, 03/08/20 19:56:00 EDT, DIS Tablet, [facility]/pharmacy #[id number], 183, cm, 03/08/20 16:59:00 EDT, Height, 108, kg, 03/08/20 16:59:00 EDT, Dry Weight Start Date: 03/08/20 Stop Date: 03/11/20 Status: Ordered oxyCODONE 5 mg oral tablet 5 mg, Tablet, By Mouth, Every 6 hours, PRN for Pain , Moderate, Routine, 10/08/20 10:27:00 EST Start Date: 10/08/20 Stop Date: 10/09/20 Status: Discontinued probenecid 500 mg oral tablet 500 mg, 1, tablet, By Mouth, 2 times a day, TAKE 1/2 TABLET BY MOUTH TWICE A DAY FOR 1 WEEK THEN INCREASE TO 1 TABLET TWICE A DAY Start Date: 10/08/20 Status: Ordered Vitamin D 89030 iu oral capsule 50,000 International_Units, 1, capsule, By Mouth, Every week, Refills 0, Maintenance, 04/01/19 16:15:52 EDT Start Date: 04/01/19 Status: Ordered Problem List Condition Effective Dates Status Health Status Inform ant Afib(Confirmed) Active Atrial flutter(Confirmed) Active Results Orders for Microbiology Reports Name Date Blood Culture 10/08/20 Blood Culture #2 10/08/20 Microbiology Reports TEST:Blood Culture, Second Order STATUS:Unauthenticated BODY SITE: SOURCE:Blood COLLECTED DATE/TIME:10/08/20 9:20 AM Blood Culture, Second Order SPECIMEN DESCRIPTION : BLOOD RT ARM SPECIAL REQUESTS : NONE CULTURE : NO GROWTH AFTER 24 HOURS REPORT STATUS : PRELIMINARY REPORT TEST:Blood Culture STATUS:Unauthenticated BODY SITE: SOURCE:Blood COLLECTED DATE/TIME:10/08/20 9:15 AM Blood Culture SPECIMEN DESCRIPTION : BLOOD RT AC SPECIAL REQUESTS : NONE CULTURE : NO GROWTH AFTER 24 HOURS REPORT STATUS : PRELIMINARY REPORT Radiology Reports * Exam Date Time Procedure Performing Provider Status 10/08/20 9:35 AM Foot Min 3 Views Right Potyrala , Heat her; Auth (Verified) Notes: (Foot Min 3 Views Right) Reason For Exam: with Pain lateral prox 5th digit;Trauma RESULT: Foot Min 3 Views Right Foot Min 3 Views Right, 3 views HX OF PRESENT ILLNESS: right foot ulcer, pain; Reason: Trauma; with Pain lateral prox 5th digit; Clinical Question(s): Osteomyelitis COMPARISON: 03/08/2020 FINDINGS: No fractures or bone lesions. Status post amputation of the second toe. There are moderate degenerative changes of the interphalangeal joint of the first toe. There are moderate degenerative changes of the midfoot. There is soft tissue ulceration lateral aspect of the foot at the level of the proximal fifth metatarsal. No radiopaque foreign body. There is a large plantar calcaneal spur. There are atherosclerotic vascular calcifications. IMPRESSION: No evidence of osteomyelitis. Consider MRI if there is continued concern. WSN: [id number] Ordering Physician: Ellen Munoz Dictated By: Gm Urias MD Dictated Date/Time: 10/08/20 9:40 am Reviewed By: Gm Urias MD Signed By: Gm Urias MD Signed Date/Time: 10/08/20 9:40 am Transcribed By: GUILHERME Transcribed Date/Time: 10/08/20 9:38 am Vital Signs Most recent to oldest [Reference Range]: 1 2 3 Height 188 cm (10/09/20 11:58 AM) 188 cm (10/09/20 8:02 AM) 188 cm (10/09/20 4:09 AM) Weight 106.5 kg (10/08/20 1:05 PM) 105 kg (10/08/20 10:19 AM) 105 kg (10/08/20 8:15 AM) Oxygen Saturation [94-100 %] 98 % (10/09/20 11:58 AM) 97 % (10/09/20 8:02 AM) 99 % (10/09/20 4:09 AM) Pulse Rate [55-90 bpm] 72 bpm (10/09/20 11:58 AM) 76 bpm (10/09/20 8:37 AM) 76 bpm (10/09/20 8:02 AM) Body Mass Index [18.5-24.99] 30.13 *>HHI* (10/08/20 1:05 PM) 29.71 *H* (10/08/20 10:19 AM) Blood Pressure [90-138/55-84 mm Hg] 159/88mm Hg *H* (10/09/20 11:58 AM) 133/57mm Hg (10/09/20 8:38 AM) 133/57mm Hg (10/09/20 8:38 AM) Respiratory Rate [16-30 br/min] 18 br/min (10/09/20 11:58 AM) 18 br/min (10/09/20 11:41 AM) 18 br/min (10/09/20 8:02 AM) Temperature [96.8-100.4 DegF] 98.2 DegF (10/09/20 11:58 AM) 99.9 DegF (10/09/20 8:02 AM) 98.1 DegF (10/09/20 4:09 AM) Liters per Minute 0 L/min (10/09/20 4:09 AM) 0 L/min (10/08/20 11:46 PM) Mode of Delivery (Oxygen) Room air (10/09/20 11:58 AM) Room air (10/09/20 8:02 AM) Room air (10/09/20 4:09 AM) Blood pressure sites Arm, right (10/09/20 11:58 AM) Arm, right (10/09/20 8:02 AM) Arm, right (10/09/20 4:09 AM) Temperature Route Oral (10/09/20 11:58 AM) Oral (10/09/20 8:02 AM) Oral (10/09/20 4:09 AM) Dry Weight 105 kg (10/08/20 1:05 PM) 105 kg (10/08/20 10:19 AM) 105 kg (10/08/20 8:15 AM) Weight Obtained Via Bed scale (10/08/20 1:05 PM) Social History Social History Type Response Smoking Status Never smoker entered on: 04/28/18 Sex
--- OUTSIDE RECORDS SUMMARY | 2022-11-14 10:51 | XMS_ITS | Continuity of Care Document ---
Author Name Unknown Organization [facility] Address [address] [place] [address]- Care Team Providers Care Gravure Press Operator Name Role Phone Sindy Flako LANDRY Primary Care Physician [place] [facility] [place]12[place]21 - 05/18/21 [facility] [address] [address] [phone] Attending Physician: Cachorro Nielsen MD Admitting Physician: [...] Unknown, 0 Refills, Maintenance, 11/09/20 8:47:00 EDT, [facility]/pharmacy #[id number], Partial fill upon patient [...] EDT, Route to Pharmacy Electronically, [facility]/pharmacy #[id number], 183, cm, 04/12/20 8:00:00EDT, [...] capsule, 2 Refills, Maintenance, 12/21/20 10:03:00EDT, Capsule, [facility], Partial fill upon patient [...] 03/08/20 19:56:00 EDT, DIS Tablet, [facility]/pharmacy #[id number], 183, cm, 03/08/20 16:59:00 [...]
--- OUTSIDE RECORDS SUMMARY | 2022-11-14 10:51 | XMS_ITS | Continuity of Care Document ---
Author Name Unknown Organization [facility] Address [address] [place] [address]- Care Team Providers Care Certified Forklift Operator Name Role Phone Flako Callahan DO Primary Care Physician [phone] [place] [facility] [place] - 01/[place]/21 [facility] 48 [facility] [address] [place] [address] [phone] Attending Physician: Luis A Roland NP Admitting [...] Unknown, 0 Refills, Maintenance, 11/09/20 8:47:00 EDT, [facility]/pharmacy #[id number], Partial fill upon patient [...] 04/12/20 9:51:00 EDT, Route to Pharmacy Electronically, [facility]/pharmacy #[id number], 183, cm, 04/12/20 8:00:00EDT, [...] capsule, 2 Refills, Maintenance, 12/21/20 10:03:00EDT, Capsule, [facility], Partial fill upon patient [...] Refills, Maintenance, 03/08/20 19:56:00 EDT, DIS Tablet, [facility]/pharmacy #[id number], 183, cm, 03/08/20 16:59:00 [...]
--- OUTSIDE RECORDS SUMMARY | 2022-11-14 10:51 | XMS_ITS | Continuity of Care Document ---
Author Name Unknown Organization [facility] Address [address] [place] [address]- Care Team Providers Care Veterinarian Assistant Name Role Phone Sindy Flako LANDRY Primary Care Physician En[place] [facility] [place] Date(s): 12/18/20 - 01/19/21 [facility] [address] [facility] [address] [place] [address] [phone] Attending Physician: Cachorro Nielsen MD Admitting Physician: [...] Unknown, 0 Refills, Maintenance, 11/09/20 8:47:00 EDT, [facility]/pharmacy #[id number], Partial fill upon patient request [...] 04/12/20 9:51:00 EDT, Route to Pharmacy Electronically, [facility]/pharmacy #[id number], 183, cm, 04/12/20 8:00:00EDT, Height, [...] capsule, 2 Refills, Maintenance, 12/21/20 10:03:00EDT, Capsule, [facility], Partial fill upon patient [...] Refills, Maintenance, 03/08/20 19:56:00 EDT, DIS Tablet, [facility]/pharmacy #[id number], 183, cm, 03/08/20 16:59:00 EDT, [...]
--- OUTSIDE RECORDS SUMMARY | 2022-11-14 10:51 | XMS_ITS | Continuity of Care Document ---
Author Name Unknown Organization [facility] Address [address] [place] [address]- Care Team Providers Care Gas Or Water Meter Installer Name Role Phone Sindy LANDRYFlako Primary Care Physician [place] [facility] [place] - 08/12/19 [facility] [place] [facility] [address] [place] [address]- [facility] Attending Physician: Cachorro Nielsen MD Admitting [...] Daily, # 30 tablet, Refills 0, Maintenance, 09/22/18 8:28:58 EST Start Date: 09/22/18 Status: Ordered Flax Seed Oil oral capsule 1 capsule, By Mouth, Daily, 0 Refills, Maintenance, 04/01/19 16:16:13 EDT Start Date: 04/01/19 Status: Ordered Humalog Cartridge Subcutaneous Infusion, 0 Refills, Maintenance, 09/08/18 2:01:18 EST Start Date: 09/08/18 Status: Ordered lisinopril 10 mg oral tablet 10 mg, 1, tablet, By Mouth, Daily, # 30 tablet, Refills 0, Maintenance, 01/24/19 19:05:05 EDT Start Date: 01/24/19 Status: Ordered meloxicam 15 mg oral tablet 1 tablet = 15 mg, By Mouth, Daily, # 30 tablet, 1 Refills, Maintenance, 07/25/19 9:32:19 EST, Tablet, 183, cm, 07/19/19 9:04:32 EST, Height, 89, kg, 07/06/19 15:23:35 EST, Dry Weight Start Date: 07/25/19 Status: Ordered Multivitamin 1, Daily, 0 Refills, Maintenance, 12/21/16 16:21:05 Start Date: 12/21/16 Status: Ordered Omeprazole = 20 mg, By Mouth, Daily, 0 Refills, Maintenance, 04/02/19 16:25:08 EDT Start Date: 04/02/19 Status: Ordered Regranex 0.01% topical gel See Instructions, Topically Daily as directed on package labeling, # 7.5 Gm, 0 Refills, Acute 08/24/19 10:39:00 EST, 08/03/19 10:38:00 EST, [facility], Topically Daily; as directed on package labeling, 183, cm, 08/03/19 9:35:... Start Date: 08/03/19 Stop Date: 08/24/19 Status: Ordered Tylenol 325 mg oral tablet 650 mg, By Mouth, Every 4 hours, PRN, Refills 0, Maintenance, Pain , Mild, 04/06/19 10:26:07 EDT Start Date: 04/06/19 Status: Ordered Vitamin C 1000 mg oral tablet 1 tablet = 1,000 mg, By Mouth, Daily, # 30 tablet, 0 Refills, Maintenance, 07/13/19 8:13:25 EST, Tablet Start Date: 07/13/19 Status: Ordered Vitamin D 83968 iu oral capsule 50,000 International_Units, 1, capsule, By Mouth, Daily, Refills 0, Maintenance, 04/01/19 16:15:52 EDT Start Date: 04/01/19 Status: Ordered Social History Social History Type Response Smoking Status Never smoker entered on: 04/28/18 Sex
--- OUTSIDE RECORDS SUMMARY | 2022-11-14 10:51 | XMS_ITS | Continuity of Care Document ---
Author Name Unknown Organization [facility] Address [address] [place] [address]- Care Team Providers Care Bioinformatics Research Technician Name Role Phone Flako Callahan DO Primary Care Physician [phone] [place] [facility] [place] 09/19/[place] [facility] [address] [facility] [address] [place], [place] [address] [phone] Attending Physician: Cachorro Nielsen MD Admitting Physician: [...] Unknown, 0 Refills, Maintenance, 11/09/20 8:47:00 EDT, [facility]/pharmacy #[id number], Partial fill upon patient request [...] 04/12/20 9:51:00 EDT, Route to Pharmacy Electronically, [facility]/pharmacy #[id number], 183, cm, 04/12/20 8:00:00EDT, Height, [...] capsule, 2 Refills, Maintenance, 12/21/20 10:03:00EDT, Capsule, [facility], Partial fill upon patient [...] Refills, Maintenance, 03/08/20 19:56:00 EDT, DIS Tablet, [facility]/pharmacy #[id number], 183, cm, 03/08/20 16:59:00 EDT, [...]
--- OUTSIDE RECORDS SUMMARY | 2022-11-14 10:51 | XMS_ITS | Continuity of Care Document ---
Author Name Unknown Organization [facility] Address [address] [place] [address]- Care Team Providers Care Powered Bridge Specialist Name Role Phone Flako Callahan DO Primary Care Physician Encounter [facility] [place] Date(s): 02/20/21 - 02/27/21 [facility] [place] [address] [place] [address]- Attending Physician: Davin Banegas MD Admitting Physician: Davin Banegas MD Referring Physician: Flako Callahan DO Allergies, [...] 0 Refills, Maintenance, 11/09/20 8:47:00 EDT, [facility]/pharmacy #[id number], Partial fill upon patient [...] 9:51:00 EDT, Route to Pharmacy Electronically, [facility]/pharmacy #[id number], 183, cm, 04/12/20 8:00:00EDT, [...] capsule, 2 Refills, Maintenance, 12/21/20 10:03:00EDT, Capsule, [facility], Partial fill upon patient [...] Maintenance, 03/08/20 19:56:00 EDT, DIS Tablet, [facility]/pharmacy #[id number], 183, cm, 03/08/20 16:59:00 [...] Diabetic foot ulcer(Confirmed) Active Peripheral neuropathy(Confirmed) Active Vital Signs Most recent to oldest [Reference Range]: 1 Height 183 cm (02/20/21 2:19 PM) Weight 94.3 kg (02/20/21 2:19 PM) Oxygen Saturation [94-100 %] 100 % (02/20/21 2:19 PM) Pulse Rate [55-90 bpm] 88 bpm (02/20/21 2:19 PM) Body Mass Index [18.5-24.99] 28.16 *H* (02/20/21 2:19 PM) Blood Pressure [90-138/55-84 mm Hg] 135/ 73mm Hg (02/20/21 2:19 PM) Blood pressure sites Arm, left (02/20/21 2:19 PM) Weight Obtained Via Standing scale (02/20/21 2:19 PM) Social History Social History Type Response Smoking Status Never smoker entered on: 04/28/18 Sex
--- OUTSIDE RECORDS SUMMARY | 2022-11-14 10:51 | XMS_ITS | Continuity of Care Document ---
Author Name Unknown Organization [facility] Address [address] [place] [address]- Care Team Providers Care Prick Stitcher Name Role Phone Flako Callahan DO Primary Care Physician [place] [facility] [place] 12/21/20 - 02/06/21 [facility] [address] [place] [address]- Attending Physician: Ngoc YATES, Jennifer Donis Referring Physician: Flako Callahan DO Allergies, Adverse [...] 0 Refills, Maintenance, 11/09/20 8:47:00 EDT, [facility]/pharmacy #[id number], Partial fill upon patient request [...] 9:51:00 EDT, Route to Pharmacy Electronically, [facility]/pharmacy #[id number], 183, cm, 04/12/20 8:00:00EDT, Height, [...] capsule, 2 Refills, Maintenance, 12/21/20 10:03:00EDT, Capsule, [facility], Partial fill upon patient [...] Maintenance, 03/08/20 19:56:00 EDT, DIS Tablet, [facility]/pharmacy #[id number], 183, cm, 03/08/20 16:59:00 EDT, [...]
--- OUTSIDE RECORDS SUMMARY | 2022-11-14 10:51 | XMS_ITS | Continuity of Care Document ---
Author Name Unknown Organization [facility] Address [address] [place] [address]- Care Team Providers Care Compression Molding Machine Operator Name Role Phone Sindy LANDRY Flako Donis Primary Care Physician En[place] [facility] [place] Date(s): 11/13/20 - 12/16/20 [facility] [address] [place] [address]- Attending Physician: Luis A Roland NP Admitting [...] Unknown, 0 Refills, Maintenance, 11/09/20 8:47:00 EDT, [facility]/pharmacy #[id number], Partial fill upon patient request if [...] 04/12/20 9:51:00 EDT, Route to Pharmacy Electronically, [facility]/pharmacy #[id number], 183, cm, 04/12/20 8:00:00EDT, Height, 103, [...] 6:27:00 EDT Start Date: 04/11/20 Status: Ordered metoprolol 25 mg oral tablet [...] Refills, Maintenance, 03/08/20 19:56:00 EDT, DIS Tablet, [facility]/pharmacy #[id number], 183, cm, 03/08/20 16:59:00 EDT, Height, 108, kg, 03/08/20 16:59:00 EDT, Dry Weight Start Date: 03/08/20 Stop Date: 03/11/20 Status: Ordered probenecid 500 mg oral tablet 500 mg, 1, tablet, By Mouth, Daily, Refills 0, Maintenance, 12/12/20 16:05:00 EDT, Partial fill upon patient request if the prescription is for a schedule II opioid drug. Start Date: 12/12/20 Status: Ordered Vitamin C 1000 mg oral [...] a schedule II opioid drug. Start Date: 3/12/21 Status: Ordered Problem List Condition Effective Dates Status Health Status Inform ant Afib(Confirmed) Active Atrial flutter(Confirmed) Active CKD stage 3(Confirmed) Active Diabetes mellitus(Confirmed) Active Peripheral neuropathy(Confirmed) Active Social History Social History Type Response Smoking Status Never smoker entered on: 04/28/18 Sex
--- OUTSIDE RECORDS SUMMARY | 2022-11-14 10:51 | XMS_ITS | Continuity of Care Document ---
Author Name Unknown Organization [facility] Address [address] [place] [address]- Care Team Providers Care Political Anthropologist Name Role Phone Flako Callahan DO Primary Care Physician Encounter [facility] [place] Date(s): 11/26/20 - 12/27/20 [facility] [address] [address] [phone] Attending Physician: Cachorro Nielsen MD Admitting Physician: [...] 12/21/20 10:03:00 EDT, [facility], Partial fill upon patient request if [...] Refills, Maintenance, 11/09/20 8:47:00 EDT, [facility]/pharmacy #[id number], Partial fill upon patient request if [...] EDT, Route to Pharmacy Electronically, [facility]/pharmacy #[id number], 183, cm, 04/12/20 8:00:00EDT, Height, 103, kg, 04/11/20 6:30:00 EDT, Dry Weight Start Date: 04/12/20 Stop Date: 08/10/20 Status: Ordered gabapentin 100 mg oral capsule 100 mg, 1, capsule, By Mouth, 3 times a day, # 90 capsule, Refills 2, Tot. Refills 2, Maintenance, 12/21/20 10:03:00 EDT, Route to Pharmacy Electronically, [facility], Partial fill uponpatient request if [...] capsule, 2 Refills, Maintenance, 12/21/20 10:03:00EDT, Capsule, [facility], Partial fill upon patient [...] 03/08/20 19:56:00 EDT, DIS Tablet, [facility]/pharmacy #[id number], 183, cm, 03/08/20 16:59:00 EDT, Height, [...]
--- OUTSIDE RECORDS SUMMARY | 2022-11-14 10:51 | XMS_ITS | Continuity of Care Document ---
Author Name Unknown Organization [facility] Address [address] [place] [address]- Care Team Providers Care Research Executive Name Role Phone Sindy Flako LANDRY Primary Care Physician [phone] [place] [facility]05[place]21 - 05/10/21 [facility] [address] [address] [phone] Attending Physician: Cachorro Nielsen MD Admitting Physician: [...] Unknown, 0 Refills, Maintenance, 11/09/20 8:47:00 EDT, [facility]/pharmacy #[id number], Partial fill upon patient request if [...] 04/12/20 9:51:00 EDT, Route to Pharmacy Electronically, [facility]/pharmacy #[id number], 183, cm, 04/12/20 8:00:00EDT, Height, 103, [...] capsule, 2 Refills, Maintenance, 12/21/20 10:03:00EDT, Capsule, [facility], Partial fill upon patient [...] Refills, Maintenance, 03/08/20 19:56:00 EDT, DIS Tablet, [facility]/pharmacy #[id number], 183, cm, 03/08/20 16:59:00 EDT, Height, [...]
--- OUTSIDE RECORDS SUMMARY | 2022-11-14 10:51 | XMS_ITS | Continuity of Care Document ---
Author Name Unknown Organization [facility] Address [address] [place] [address]- Care Team Providers Care Cherry Sorter Name Role Phone Sindy Flako LANDRY Primary Care Physician [phone] [place] [facility](s): 04/05/21 - 05/11/21 [facility] [address] [address] [phone] Attending Physician: Cachorro Nielsen MD Admitting Physician: [...] Unknown, 0 Refills, Maintenance, 11/09/20 8:47:00 EDT, [facility]/pharmacy #[id number], Partial fill upon patient request if [...] 04/12/20 9:51:00 EDT, Route to Pharmacy Electronically, [facility]/pharmacy #[id number], 183, cm, 04/12/20 8:00:00EDT, Height, 103, [...] capsule, 2 Refills, Maintenance, 12/21/20 10:03:00EDT, Capsule, [facility], Partial fill upon patient [...] Refills, Maintenance, 03/08/20 19:56:00 EDT, DIS Tablet, [facility]/pharmacy #[id number], 183, cm, 03/08/20 16:59:00 EDT, Height, [...]
--- OUTSIDE RECORDS SUMMARY | 2022-11-14 10:51 | XMS_ITS | Continuity of Care Document ---
Author Name Unknown Organization [facility] Address [address] [place] [address]- Care Team Providers Care Microsoft Exchange Architect Name Role Phone Flako Callahan DO Primary Care Physician [phone] En[place] [facility] [place] Date(s): 01/09/21 - 01/16/21 [facility] [address] [place] [address]- Attending Physician: Davin Banegas MD Admitting Physician: [...] Unknown, 0 Refills, Maintenance, 11/09/20 8:47:00 EDT, [facility]/pharmacy #[id number], Partial fill upon [...] 04/12/20 9:51:00 EDT, Route to Pharmacy Electronically, [facility]/pharmacy #[id number], 183, cm, 04/12/20 [...] capsule, 2 Refills, Maintenance, 12/21/20 10:03:00EDT, Capsule, [facility], Partial fill upon patient [...] Refills, Maintenance, 03/08/20 19:56:00 EDT, DIS Tablet, [facility]/pharmacy #[id number], 183, cm, 03/08/20 [...] oldest [Reference Range]: 1 Height 183 cm (01/09/21 8:19 AM) Weight 96 kg (01/09/21 8:19 AM) Oxygen Saturation [94-100 %] 98 % (01/09/21 8:19 AM) Pulse Rate [55-90 bpm] 75 bpm (01/09/21 8:19 AM) Body Mass Index [18.5-24.99] 28.67 *H* (01/09/21 8:19 AM) Blood Pressure [90-138/55-84 mm Hg] 116/ 74mm Hg (01/09/21 8:19 AM) Blood pressure sites Arm, left (01/09/21 8:19 AM) Weight Obtained Via Standing scale (01/09/21 8:19 AM) Social History Social History Type Response Smoking Status Never smoker entered on: 04/28/18 Sex
--- OUTSIDE RECORDS SUMMARY | 2022-11-14 10:51 | XMS_ITS | Continuity of Care Document ---
Author Name Unknown Organization [facility] Address [address] [place] [address]- Care Team Providers Care Medic Technician Name Role Phone Enrico Flako LANDRY Primary Care Physician [phone] En[facility] [place] Date(s): 05/22/21 - 06/21/21 [facility] [address] [place] [address]- Attending Physician: Lion Vann Admitting Physician: Lion Vann Referring Physician: AdmtrLion Allergies, Adverse Reactions, Alerts [...]
--- OUTSIDE RECORDS SUMMARY | 2022-11-14 10:51 | XMS_ITS | Continuity of Care Document ---
Author Name Unknown Organization [facility] Address [address] [place] [address]- Care Team Providers Care Lead Burner Name Role Phone Flako Callahan DO Primary Care Physician [place] [facility] [place](s): 05/21/20 - 06/20/20 [facility] [address] [place] [address] [facility] Attending Physician: Lion Vann Admitting Physician: AdmLion jimenez Referring Physician: AdmtrLion Allergies, Adverse Reactions, Alerts [...] 03/25/20 0:20:00 EDT, Route to Pharmacy Electronically, [facility]/pharmacy #[id number] Tablet, Partial fill upon patient request, [...] EDT, Route to Pharmacy Electronically, [facility]/pharmacy #[id number], 183, cm, 04/12/20 8:00:00EDT, Height, 103, [...] tablet, 1 Refills, Maintenance, 04/20/20 16:24:00 EDT, [facility]/pharmacy #[id number], 183, cm, 04/17/20 14:57:00 EDT, Height, [...] 03/08/20 19:56:00 EDT, DIS Tablet, [facility]/pharmacy #[id number], 183, cm, 03/08/20 16:59:00 EDT, Height, 108, kg, 03/08/20 16:59:00 EDT, Dry Weight Start Date: 03/08/20 Stop Date: 03/11/20 Status: Ordered oxyCODONE 5 mg oral tablet 5 mg, 1, tablet, By Mouth, Every 6 hours, PRN, # 10 tablet, Refills 0, Tot. Refills 0, Maintenance,Pain , Severe, 09/14/19 11:11:00 EST, Route to Pharmacy Electronically, [facility]/pharmacy #[id number], Partialfill upon patient request, 183, cm, 09/14/19 9:28:0... Start Date: 09/14/19 Status: Ordered Vitamin C 1000 mg oral tablet 1 tablet = 1,000 mg, By Mouth, Daily, # 30 tablet, 0 Refills, Maintenance, 07/13/19 8:13:25 EST, Tablet Start Date: 07/13/19 Status: Ordered Vitamin D 10413 iu oral capsule 50,000 International_Units, 1, capsule, By Mouth, Every week, Refills 0, Maintenance, 04/01/19 16:15:52 EDT Start Date: 04/01/19 Status: Ordered Problem List Condition Effective Dates Status Health Status Inform ant Afib(Confirmed) Active Atrial flutter(Confirmed) Active Social History Social History Type Response Smoking Status Never smoker entered on: 04/28/18 Sex
--- OUTSIDE RECORDS SUMMARY | 2022-11-14 10:51 | XMS_ITS | Continuity of Care Document ---
Author Name Unknown Organization [facility] Address [address] [place] [address]- Care Team Providers Care Hand Embroiderer Name Role Phone Enrico Flako LANDRY Primary Care Physician [place] [facility] [place] 06/20/20 [facility] [address] [place] [address] [facility] Attending Physician: Cachorro Nielsen MD Admitting [...] 03/25/20 0:20:00 EDT, Route to Pharmacy Electronically, [facility]/pharmacy #[id number] Tablet, Partial fill upon patient request, [...] 9:51:00 EDT, Route to Pharmacy Electronically, [facility]/pharmacy #[id number], 183, cm, 04/12/20 8:00:00EDT, Height, [...] tablet, 1 Refills, Maintenance, 04/20/20 16:24:00 EDT, [facility]/pharmacy #[id number], 183, cm, 04/17/20 14:57:00 EDT, Height, [...] Maintenance, 03/08/20 19:56:00 EDT, DIS Tablet, [facility]/pharmacy #[id number], 183, cm, 03/08/20 16:59:00 EDT, Height, 108, kg, 03/08/20 16:59:00 EDT, Dry Weight Start Date: 03/08/20 Stop Date: 03/11/20 Status: Ordered oxyCODONE 5 mg oral tablet 5 mg, 1, tablet, By Mouth, Every 6 hours, PRN, # 10 tablet, Refills 0, Tot. Refills 0, Maintenance,Pain , Severe, 09/14/19 11:11:00 EST, Route to Pharmacy Electronically, [facility]/pharmacy #[id number], Partialfill upon patient request, 183, cm, 09/14/19 9:28:0... Start Date: 09/14/19 Status: Ordered Vitamin C 1000 mg oral tablet 1 tablet = 1,000 mg, By Mouth, Daily, # 30 tablet, 0 Refills, Maintenance, 07/13/19 8:13:25 EST, Tablet Start Date: 07/13/19 Status: Ordered Vitamin D 68244 iu oral capsule 50,000 International_Units, 1, capsule, By Mouth, Every week, Refills 0, Maintenance, 04/01/19 16:15:52 EDT Start Date: 04/01/19 Status: Ordered Problem List Condition Effective Dates Status Health Status Inform ant Afib(Confirmed) Active Atrial flutter(Confirmed) Active Social History Social History Type Response Smoking Status Never smoker entered on: 04/28/18 Sex
--- OUTSIDE RECORDS SUMMARY | 2022-11-14 10:51 | XMS_ITS | Continuity of Care Document ---
Author Name Unknown Organization [facility] Address [address] [place] [address]- Care Team Providers Care Statistical Modeler Name Role Phone Sindy Flako LANDRY Primary Care Physician En[facility] [place] Date(s): 04/09/21 - 05/15/21 [facility] [address] [facility] [address] [place] [address] [phone] Attending Physician: Cachorro Nielsen MD Admitting Physician: [...] Unknown, 0 Refills, Maintenance, 11/09/20 8:47:00 EDT, [facility]/pharmacy #[id number], Partial fill upon patient request if [...] 04/12/20 9:51:00 EDT, Route to Pharmacy Electronically, [facility]/pharmacy #[id number], 183, cm, 04/12/20 8:00:00EDT, Height, 103, [...] capsule, 2 Refills, Maintenance, 12/21/20 10:03:00EDT, Capsule, [facility], Partial fill upon patient [...] Refills, Maintenance, 03/08/20 19:56:00 EDT, DIS Tablet, [facility]/pharmacy #[id number], 183, cm, 03/08/20 16:59:00 EDT, Height, [...]
--- OUTSIDE RECORDS SUMMARY | 2022-11-14 10:51 | XMS_ITS | Continuity of Care Document ---
Author Name Unknown Organization [facility] Address [address] [place] [address]- Care Team Providers Care Supervisor Assembling Name Role Phone Flako Callahan DO Primary Care Physician [phone] [place] [facility] [place] 04/24/22 - 05/24/22 [facility] [address] [place] [address] Attending Physician: Loin Vann Admitting Physician: AdmLion jimenez Referring Physician: [...] Unknown, 0 Refills, Maintenance, 11/09/20 8:47:00 EDT, [facility]/pharmacy #[id number], Partial fill [...] capsule, 2 Refills, Maintenance, 12/21/20 10:03:00EDT, Capsule, [facility], Partial fill upon patient [...] Flako Callahan DO Address: Address: [address] [place], [place] [address]
--- OUTSIDE RECORDS SUMMARY | 2022-11-14 10:51 | XMS_ITS | Continuity of Care Document ---
Author Name Unknown Organization [facility] Address [address] [place] [address]- Care Team Providers Care Hot Box Checker Name Role Phone Sindy Flako LANDRY Primary Care Physician [phone] En[place] [facility] [place] Date(s): 03/24/20 - 03/25/[address] [address] [phone] Discharge Disposition: A-D/C Home Attending Physician: Codey Albright MD Admitting Physician: Codey Albright MD Referring Physician: Not on Staff, Referring [...] 03/25/20 0:20:00 EDT, Route to Pharmacy Electronically, [facility]/pharmacy #[id number] Tablet, Partial fill upon patient request, 183, cm, 03/25/20 0:19:00 EDT,... Start Date: 03/25/20 Status: Ordered Cardizem CD 120 mg/24 hours oral capsule, extended release 120 mg, 1, capsule, By Mouth, Daily, # 30 capsule, Refills 0, Tot. Refills 0, Maintenance, :17:00 EST, Route to Pharmacy Electronically, [facility]/pharmacy #[id number], 183, cm, 09/17/19 7:23:00 EST, Height, 99.4, kg, 09/16/19 12:50:00 EST, Dry Weight Start Date: 09/17/19 Status: Ordered doxycycline hyclate 100 mg oral capsule 1 capsule = 100 mg, By Mouth, 2 times a day, for 10 days, # 20 capsule, 0 Refills, Acute 03/31/20 14:28:00 EDT, 03/21/20 14:28:00 EDT, Capsule, [facility]/pharmacy #[id number], 183, cm, 03/21/20 13:29:00 EDT, Height, 108, kg, 03/08/20 20:29:00 EDT, Dry Weight Start Date: 03/21/20 Stop Date: 03/31/20 Status: Ordered Eliquis 2.5 mg oral tablet [...] 1 Refills, Maintenance, 01/30/20 13:36:00 EDT, Tablet, [facility]/pharmacy #[id number], 183, cm, 01/19/20 9:23:00 EDT, Height, [...] Refills, Maintenance, 03/08/20 19:56:00 EDT, DIS Tablet, [facility]/pharmacy #[id number], 183, cm, 03/08/20 16:59:00 EDT, Height, 108, kg, 03/08/20 16:59:00 EDT, Dry Weight Start Date: 03/08/20 Stop Date: 03/11/20 Status: Ordered oxyCODONE 5 mg oral tablet 5 mg, 1, tablet, By Mouth, Every 6 hours, PRN, # 10 tablet, Refills 0, Tot. Refills 0, Maintenance,Pain , Severe, 09/14/19 11:11:00 EST, Route to Pharmacy Electronically, [facility]/pharmacy #[id number], Partialfill upon patient request, 183, cm, 09/14/19 9:28:0... Start Date: 09/14/19 Status: Ordered Vitamin C 1000 mg oral tablet 1 tablet = 1,000 mg, By Mouth, Daily, # 30 tablet, 0 Refills, Maintenance, 07/13/19 8:13:25 EST, Tablet Start Date: 07/13/19 Status: Ordered Vitamin D 28308 iu oral capsule 50,000 International_Units, 1, capsule, By Mouth, Every week, Refills 0, Maintenance, 04/01/19 16:15:52 EDT Start Date: 04/01/19 Status: Ordered Xarelto 20 mg oral tablet 1 tablet = 20 mg, By Mouth, Daily before dinner, 0 Refills, Maintenance, 09/07/19 8:14:00 EST Start Date: 09/07/19 Status: Ordered Vital Signs Most recent to oldest [Reference Range]: 1 2 3 Height 183 cm (03/25/20 12:19 AM) 183 cm (03/24/20 9:28 PM) 183 cm (03/24/20 6:00 PM) Weight 101 kg (03/25/20:19 AM) 101 kg (03/24/20 9:28 PM) 101 kg (03/24/20 6:00 PM) Oxygen Saturation [94-100 %] 97 % (03/25/20:19 AM) 97 % (03/24/20:28 PM) 98 % (03/24/20 6:00 PM) Pulse Rate [55-90 bpm] 85 bpm (03/25/20:19 AM) 72 bpm (03/24/20:28 PM) 78 bpm (03/24/20 6:00 PM) Body Mass Index [18.5-24.99] 30.16 *>HHI* (03/25/20:19 AM) 30.16 *>HHI* (03/24/20:28 PM) 30.16 *>HHI* (03/24/20 6:00 PM) Blood Pressure [90-138/55-84 mm Hg] 130/73mm Hg (03/25/20:19 AM) 154/81mm Hg *H* (03/24/20 9:28 PM) 152/97mm Hg *H* (03/24/20 6:00 PM) Respiratory Rate [16-30 br/min] 16 br/min (03/25/20:19 AM) 18 br/min (03/24/20 9:29 PM) 16 br/min (03/24/20:28 PM) Temperature [96.8-100.4 DegF] 97.0 DegF (03/25/20:19 AM) 97.3 DegF (03/24/20:28 PM) 98.1 DegF (03/24/20 6:00 PM) Mode of Delivery (Oxygen) room air (03/25/20:19 AM) Room air (03/24/20 9:28 PM) Room air (03/24/20 6:00 PM) Blood pressure sites Arm, left (03/24/20 9:28 PM) Arm, left (03/24/20 6:00 PM) Temperature Route Oral (8/9/20 12:19 AM) Oral (03/24/20 9:28 PM) Oral (03/24/20 6:00 PM) Dry Weight 101 kg (03/25/20 12:19 AM) 101 kg (03/24/20 9:28 PM) 101 kg (03/24/20 6:00 PM) Social History Social History Type Response Smoking Status Never smoker entered on: 04/28/18 Sex
--- OUTSIDE RECORDS SUMMARY | 2022-11-14 10:51 | XMS_ITS | Continuity of Care Document ---
Author Name Unknown Organization [facility] Address [address] [place] [address]- Care Team Providers Care Micro Computer Specialist Name Role Phone Enrico Flako LANDRY Primary Care Physician [phone] En[place] [facility] [place] Date(s): 05/11/20 - 06/16/20 [facility] [address] [place] [address]- [facility] Attending Physician: Cachorro Nielsen MD Admitting [...] Start Date: 07/13/19 Status: Ordered Vitamin D 68215 iu oral capsule 50,000 International_Units, 1, capsule, By Mouth, Every week, Refills 0, Maintenance, 04/01/19 16:15:52 EDT Start Date: 04/01/19 Status: Ordered Problem List Condition Effective Dates Status Health Status Inform ant Afib(Confirmed) Active Atrial flutter(Confirmed) Active Social History Social History Type Response Smoking Status Never smoker entered on: 04/28/18 Sex
--- OUTSIDE RECORDS SUMMARY | 2022-11-14 10:51 | XMS_ITS | Continuity of Care Document ---
Author Name Unknown Organization [facility] Address [address] [place] [address]- Care Team Providers Care Bonding Molder Name Role Phone Sindy Flako LANDRY Primary Care Physician [phone] [facility] Date(s): 12/20/20 - 01/23/21 [facility] [address] [facility] [address] [place] [address] [phone] Attending Physician: Cachorro Nielsen MD Admitting Physician: [...] Unknown, 0 Refills, Maintenance, 11/09/20 8:47:00 EDT, [facility]/pharmacy #[id number], Partial fill upon patient [...] 04/12/20 9:51:00 EDT, Route to Pharmacy Electronically, [facility]/pharmacy #[id number], 183, cm, 04/12/20 8:00:00EDT, [...] Refills, Maintenance, 03/08/20 19:56:00 EDT, DIS Tablet, [facility]/pharmacy #[id number], 183, cm, 03/08/20 16:59:00 [...]
--- OUTSIDE RECORDS SUMMARY | 2022-11-14 10:51 | XMS_ITS | Continuity of Care Document ---
Author Name Unknown Organization [facility] Address [address] [place] [address]- Care Team Providers Care Step Finisher Name Role Phone Enrico Flako LANDRY Primary Care Physician Encounter [facility] Date(s): 03/08/20 - 03/08/[address] [address] [phone] Discharge Disposition: A-D/C Home Attending Physician: Shine Nicolas MD Admitting Physician: Shine Nicolas MD Referring Physician: Not on Staff, Referring [...] Maintenance, 209:17:00 EST, Route to Pharmacy Electronically, [facility] [...] Start Date: 07/13/19 Status: Ordered Vitamin D 30532 iu oral capsule 50,000 International_Units, 1, capsule, By Mouth, Every week, Refills 0, Maintenance, 04/01/19 16:15:52 EDT Start Date: 04/01/19 Status: Ordered Xarelto 20 mg oral tablet 1 tablet = 20 mg, By Mouth, Daily before dinner, 0 Refills, Maintenance, 09/07/19 8:14:00 EST Start Date: 09/07/19 Status: Ordered Results Radiology Reports * Exam Date Time Procedure Performing Provider Status 03/08/20 7:26 PM Toe Great Right Foot Lamberto Leal Edwi n; Auth (Verified) Notes: (Toe Great Right Foot) Reason For Exam: fever;Infection RESULT: Toe Great Right Foot Toe Great Right Foot, 3 views REASON: Infection; fever; Clinical Question(s): Osteomyelitis; Hx of Present Illness: fever, bodyaches N,V since this am COMPARISON: 12/22/2019 FINDINGS: 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 No evidence of acute fracture or dislocation. Degenerative changes of the interphalangeal joint of the great toe with joint space narrowing and subchondral cystic change, similar to prior. No evidence of acute bony destr uction. Partially visualized degenerative changes of the midfoot and hindfoot. Soft tissue swellingof the first toe. No radiopaque foreign body. IMPRESSION: No evidence of acute osseous abnormality. WSN: [id number] Ordering Physician: Jennifer Hurley Dictated By: Gm Urias MD Dictated Date/Time: 03/08/20 7:32 pm Reviewed By: Gm Urias MD Signed By: Gm Urias MD Signed Date/Time: 03/08/20 7:32 pm Transcribed By: GUILHERME Transcribed Date/Time: 03/08/20 7:31 pm * Exam Date Time Procedure Performing Provider Status 03/08/20 7:26 PM Chest Portable Terence Morris; Aut h (Verified) Notes: (Chest Portable) Reason For Exam: Shortness of Breath RESULT: Chest Portable Chest Portable REASON: Shortness of Breath; Clinical Question(s): Pneumonia; Hx of Present Illness: fever, bodyaches N,V since this am / Pneumonia COMPARISON: 09/16/2019 FINDINGS: LINES AND TUBES: None. LUNGS AND PLEURA: Clear lungs. Normal pulmonary vascularity. No pleural effusion. No pneumothorax. HEART, MEDIASTINUM AND PRESTON: Heart is normal in size. Normal mediastinal and hilar contour. BONES AND SOFT TISSUES: No acute abnormality. IMPRESSION: No evidence of acute abnormality. WSN: [id number] Ordering Physician: Jennifer Hurley Dictated By: Gm Urias MD Dictated Date/Time: 03/08/20 7:30 pm Reviewed By: Gm Urias MD Signed By: Gm Urias MD Signed Date/Time: 03/08/20 7:30 pm Transcribed By: GUILHERME Transcribed Date/Time: 03/08/20 7:30 pm Vital Signs Most recent to oldest [Reference Range]: 1 2 3 Height 183 cm (03/08/20 8:29 PM) 183 cm (03/08/20 4:59 PM) Weight 108 kg (03/08/20 8:29 PM) 108 kg (03/08/20 4:59 PM) Oxygen Saturation [94-100 %] 97 % (03/08/20 8:29 PM) 96 % (03/08/20 4:59 PM) Pulse Rate [55-90 bpm] 83 bpm (03/08/20 8:29 PM) 96 bpm *H* (03/08/20 4:59 PM) Body Mass Index [18.5-24.99] 32.25 *>HHI* (03/08/20 8:29 PM) Blood Pressure [90-138/55-84 mm Hg] 153/84mm Hg *H* (03/08/20 8:29 PM) 161/87mm Hg *H* (03/08/20 4:59 PM) Respiratory Rate [16-30 br/min] 16 br/min (03/08/20 8:46 PM) 16 br/min (03/08/20 8:29 PM) 16 br/min (03/08/20 8:16 PM) Temperature [96.8-100.4 DegF] 98.6 DegF (03/08/20 8:29 PM) 100.8 DegF *H* (03/08/20 4:59 PM) Mode of Delivery (Oxygen) Room air (03/08/20 8:29 PM) Room air (03/08/20 4:59 PM) Blood pressure sites Arm, left (03/08/20 8:29 PM) Temperature Route Oral (03/08/20 8:29 PM) Oral (03/08/20 4:59 PM) Dry Weight 108 kg (03/08/20 8:29 PM) 108 kg (03/08/20 4:59 PM) Social History Social History Type Response Smoking Status Never smoker entered on: 04/28/18 Sex
--- OUTSIDE RECORDS SUMMARY | 2022-11-14 10:51 | XMS_ITS | Continuity of Care Document ---
Author Name Unknown Organization [facility] Address [address] [place] [address]- Care Team Providers Care Splicing Supervisor Name Role Phone Flako Callahan DO Primary Care Physician Encounter [facility] [place] Date(s): 07/08/19 - 08/10/19 [facility] [address] [place], [place] [address] Attending Physician: Luis A Roland NP Admitting [...] Start Date: 07/13/19 Status: Ordered Vitamin D 87021 iu oral capsule 50,000 International_Units, 1, capsule, By Mouth, Daily, Refills 0, Maintenance, 04/01/19 16:15:52 EDT Start Date: 04/01/19 Status: Ordered Social History Social History Type Response Smoking Status Never smoker entered on: 04/28/18 Sex
--- OUTSIDE RECORDS SUMMARY | 2022-11-14 10:51 | XMS_ITS | Continuity of Care Document ---
Author Name Unknown Organization [facility] Address [address] [place] [address]- Care Team Providers Care Manager Simulation Name Role Phone Flako Callahan DO Primary Care Physician [phone] Encounter [facility] Date(s): 04/15/22 - 05/15/22 [facility] [address] [place] [address] Allergies, Adverse Reactions, Alerts Substance Reaction Severity [...] 9:51:00 EDT, Route to Pharmacy Electronically, [facility]/pharmacy #[id number], 183, cm, 04/12/20 8:00:00EDT, Height, 103, [...] capsule, 2 Refills, Maintenance, 12/21/20 10:03:00EDT, Capsule, [facility], Partial fill upon [...] Maintenance, 03/08/20 19:56:00 EDT, DIS Tablet, [facility]/pharmacy #[id number], 183, cm, 03/08/20 16:59:00 EDT, Height, [...] Patient Care team information Personnel Name: Flako Callhaan DO Address: Address: [address] [place] [address]
--- OUTSIDE RECORDS SUMMARY | 2022-11-14 10:51 | XMS_ITS | Continuity of Care Document ---
Author Name Unknown Organization [facility] Address [address] [place] [address]- Care Team Providers Care Header Operator Name Role Phone Flako Callahan DO Primary Care Physician [place] [facility] [place](s): 01/17/21 - 05/17/21 [facility] [place] [address] [place] [address]- Attending Physician: Davin Banegas MD Admitting Physician: [...] capsule, 2 Refills, Maintenance, 12/21/20 10:03:00EDT, Capsule, [facility], Partial fill upon [...]
--- OUTSIDE RECORDS SUMMARY | 2022-11-14 10:52 | XMS_ITS | Continuity of Care Document ---
Author Name Unknown Organization [facility] Address [address] [place] [address]- Care Team Providers Care Apprentice Cosmetologist Name Role Phone Sindy Flako LANDRY Primary Care Physician En[place] [facility] Date(s): 12/03/20 - 12/05/[address] [address]- Discharge Disposition: A-D/C Home Attending Physician: Lucero Gibbs MD Admitting Physician: Randy Srinivasan MD Referring Physician: Not on Staff, Referring [...] n pneumococcal 23-valent vaccine 08/01/12 Given Medications acetaminophen 325 mg oral tablet 975 mg, Tablet, By Mouth, 12/05/20 6:00:00 EDT Start Date: 12/05/20 Stop Date: 12/05/20 Status: Completed acetaminophen-oxycodone 300 mg-5 mg oral tablet 1 tablet, By Mouth, Every 6 hours, PRN Pain , Moderate, 0 Refills, Maintenance, 12/03/20 20:24:00 EDT, Partial fill upon patient request if the prescription is for a schedule II opioid drug. Start Date: 12/03/20 Status: Ordered amLODIPine 10 mg oral tablet 10 mg, Tablet, By Mouth, 12/05/20 9:00:00 EDT Start Date: 12/05/20 Stop Date: 12/05/20 Status: Completed amLODIPine 10 mg oral tablet 10 mg, [...] opioid drug. Start Date: 10/26/20 Status: Ordered bacitracin topical 500 u/gm ointment 1 application, Topically, Daily, for 10 days, # 30 Gm, 0 Refills, Acute 12/15/20 13:43:00 EDT, 12/05/20 13:43:00 EDT, Ointment, [facility]/pharmacy #[id number], Partial fill upon patient request if the prescription is for a schedule II opioid drug., 1 application... Start Date: 12/05/20 Stop Date: 12/15/20 Status: Ordered Dakins Half Strength 0.25% topical [...] 6:27:00 EDT Start Date: 04/11/20 Status: Ordered mirtazapine [...] Status: Ordered Probenecid 100 mg, By Mouth, Daily, Refills 0, Maintenance, 10/26/20 15:10:00 EST, Partial fill upon patient request if the prescription is for a schedule II opioid drug. Start Date: 10/26/20 Status: Ordered Vitamin C 1000 mg oral [...] Active Diabetes mellitus(Confirmed) Active Peripheral neuropathy(Confirmed) Active Results Orders for Microbiology Reports Name Date Blood Culture 12/03/20 Blood Culture #2 12/03/20 Microbiology Reports TEST:Blood Culture STATUS:Unauthenticated BODY SITE: SOURCE:Blood COLLECTED DATE/TIME:12/03/20 12:35 PM Blood Culture SPECIMEN DESCRIPTION : BLOOD LEFT AC SPECIAL REQUESTS : NONE CULTURE : NO GROWTH AFTER 48 HOURS REPORT STATUS : PRELIMINARY REPORT TEST:Blood Culture, Second Order STATUS:Unauthenticated BODY SITE: SOURCE:Blood COLLECTED DATE/TIME:12/03/20 12:35 PM Blood Culture, Second Order SPECIMEN DESCRIPTION : BLOOD LEFT ARM SPECIAL REQUESTS : NONE CULTURE : NO GROWTH AFTER 48 HOURS REPORT STATUS : PRELIMINARY REPORT Radiology Reports * Exam Date Time Procedure Performing Provider Status 12/03/20 1:03 PM Foot Min 3 Views Right Ngozi Eugene; Auth (Verified) Notes: (Foot Min 3 Views Right) Reason For Exam: Infection RESULT: Foot Min 3 Views Right Foot Min 3 Views Right, 3 views Hx of Present Illness: Foot fx to foot several years ago this past winter a wound opened up admitted for bacterial infection had operation back in [facility] last night increased swelling pain that radiates up the leg +PPP having to use 2 crutches decreasing the pressure N V D; Reason: Infection; Clinical Question(s): Osteomyelitis COMPARISON: 10/26/2020 FINDINGS: By history, the patient has undergone resection of a portion of the fifth right metatarsal. Lucency is noted at the base of the residual right fifth metatarsal with slightly scalloped and sclerotic margins. Multiple new bone fragments are present adjacent to the lateral margin of the cuboid and fifth tarsometatarsal joint space. There is also new widening of the joint space between the lateral cuneiformand cuboid with poorly defined margins. There is also irregularity of the lateral margin of the navicular bone and adjacent cuboid. Dorsal right foot soft tissue swelling. No subcutaneous emphysema. A soft tissue ulcer is noted over the site of the fifth right metatarsal resection. Vascular calcifications of the right foot and ankle. IMPRESSION: 1. New bony irregularity of the midfoot and soft tissue swelling compatible with osteomyelitis and/or septic facet joint arthritis. MRI of the right foot is recommended for further evaluation. 2. Ulceration over the base of the right fifth metatarsal. WSN: [id number] Ordering Physician: Philip Calderon Dictated By: Jony Faust MD Dictated Date/Time: 12/03/20 1:12 pm Reviewed By: Jony Faust MD Signed By: Jony Faust MD Signed Date/Time: 12/03/20 1:12 pm Transcribed By: GUILHERME Transcribed Date/Time: 12/03/20 1:05 pm Vital Signs Most recent to oldest [Reference Range]: 1 2 3 Height 183 cm (12/05/20 11:48 AM) 183 cm (12/05/20 7:41 AM) 183 cm (12/05/20 3:25 AM) Weight 97.7 kg (12/03/20 8:00 PM) 97.7 kg (12/03/20 6:57 PM) 100 kg (12/03/20 2:52 PM) Oxygen Saturation [94-100 %] 96 % (12/05/20 11:48 AM) 94 % (12/05/20 7:41 AM) 95 % (12/05/20 3:25 AM) Pulse Rate [55-90 bpm] 78 bpm (12/05/20 11:48 AM) 84 bpm (12/05/20 7:41 AM) 90 bpm (12/05/20 3:25 AM) Body Mass Index [18.5-24.99] 29.17 *H* (12/03/20 6:57 PM) 29.86 *H* (12/03/20 2:52 PM) Blood Pressure [90-138/55-84 mm Hg] 143/76mm Hg *H* (12/05/20 11:48 AM) 125/73mm Hg (12/05/20 8:12 AM) 125/73mm Hg (12/05/20 7:41 AM) Respiratory Rate [16-30 br/min] 18 br/min (12/05/20 11:48 AM) 18 br/min (12/05/20 7:41 AM) 18 br/min (12/05/20 7:13 AM) Temperature [96.8-100.4 DegF] 98.2 DegF (12/05/20 11:48 AM) 98.1 DegF (12/05/20 7:41 AM) 98.0 DegF (12/05/20 3:25 AM) Mode of Delivery (Oxygen) Room air (12/05/20 11:48 AM) Room air (12/05/20 7:41 AM) Room air (12/05/20 3:25 AM) Blood pressure sites Arm, left (12/05/20 11:48 AM) Arm, left (12/05/20 7:41 AM) Arm, left (12/05/20 3:25 AM) Temperature Route Oral (12/05/20 11:48 AM) Oral (12/05/20 7:41 AM) Oral (12/05/20 3:25 AM) Dry Weight 97.7 kg (12/03/20 8:00 PM) 97.7 kg (12/03/20 6:57 PM) 100 kg (12/03/20 2:52 PM) Dry Weight Obtained Via Patient/family s tated (12/03/20 12:01 PM) Social History Social History Type Response Smoking Status Never smoker entered on: 04/28/18 Sex
--- OUTSIDE RECORDS SUMMARY | 2022-11-14 10:52 | XMS_ITS | Continuity of Care Document ---
Author Name Unknown Organization [facility] Address [address] [place] [address]- Care Team Providers Care Sales Order Processor Name Role Phone Sindy Flako LANDRY Primary Care Physician Encounter [facility] Date(s): 04/05/21 - 05/09/21 [facility] [address] [address] [phone] Attending Physician: Cachorro Nielsen MD Admitting Physician: [...] Unknown, 0 Refills, Maintenance, 11/09/20 8:47:00 EDT, [facility]/pharmacy #[id number], Partial fill [...] capsule, 2 Refills, Maintenance, 12/21/20 10:03:00EDT, Capsule, [facility], Partial fill upon patient request [...]
--- OUTSIDE RECORDS SUMMARY | 2022-11-14 10:52 | XMS_ITS | Continuity of Care Document ---
Author Name Unknown Organization [facility] Address [address] [place] [address]- Care Team Providers Care Oral Communication Instructor Name Role Phone Flako Callahan DO Primary Care Physician Encounter [facility] Date(s): 07/19/19 - 07/29/19 [facility] [address] [place] [address] [facility] Attending Physician: Lion Vann Admitting Physician: Lion [...] 16:25:08 EDT Start Date: 04/02/19 Status: Ordered Tylenol 325 mg oral tablet 650 mg, By Mouth, Every 4 hours, PRN, Refills 0, Maintenance, Pain , Mild, 04/06/19 10:26:07 EDT Start Date: 04/06/19 Status: Ordered Vitamin C 1000 mg oral tablet 1 tablet = 1,000 mg, By Mouth, Daily, # 30 tablet, 0 Refills, Maintenance, 07/13/19 8:13:25 EST, Tablet Start Date: 07/13/19 Status: Ordered Vitamin D 54468 iu oral capsule 50,000 International_Units, 1, capsule, By Mouth, Daily, Refills 0, Maintenance, 04/01/19 16:15:52 EDT Start Date: 04/01/19 Status: Ordered Social History Social History Type Response Smoking Status Never smoker entered on: 04/28/18 Sex
--- OUTSIDE RECORDS SUMMARY | 2022-11-14 10:52 | XMS_ITS | Continuity of Care Document ---
Author Name Unknown Organization [facility] Address [address] [place] [address]- Care Team Providers Care Tank Farm Attendant Name Role Phone Sindy Flako LANDRY Primary Care Physician [phone] Encounter [facility] [place] Date(s): 04/10/21 - 05/16/21 [facility] [address] [address] [phone] Attending Physician: Cachorro Nielsen MD Admitting Physician: [...] Unknown, 0 Refills, Maintenance, 11/09/20 8:47:00 EDT, [facility]/pharmacy #[id number], Partial fill upon patient request if [...] capsule, 2 Refills, Maintenance, 12/21/20 10:03:00EDT, Capsule, [facility], Partial fill upon patient [...]
--- OUTSIDE RECORDS SUMMARY | 2022-11-14 10:52 | XMS_ITS | Continuity of Care Document ---
Author Name Unknown Organization [facility] Address [address] [place] [address]- Care Team Providers Care Distribution Specialist Name Role Phone Flako Callahan DO Primary Care Physician En[place] [facility] [place] Date(s): 12/19/20 - 12/21/[address] [address]- Discharge Disposition: A-D/C Home Attending Physician: Davin Banegas MD Admitting Physician: Davin Banegas MD Referring Physician: Davin Banegas MD Allergies, Adverse Reactions, Alerts Substance Reaction [...] 12/21/20 10:03:00 EDT, Route to Pharmacy Electronically, [facility], Partial fill upon patient [...] Unknown, 0 Refills, Maintenance, 11/09/20 8:47:00 EDT, [facility]/pharmacy #[id number], Partial fill upon patient request if the prescription is for a scheduleII opioid drug., apply to wound for 15 minutes, 182... Start Date: 11/09/20 Status: Ordered Dilaudid 4 mg oral tablet 1 tablet = 4 mg, By Mouth, Every 4 hours, for 5 days, # 30 tablet, 0 Refills, Acute 12/26/20 10:03:00 EDT, 12/21/20 10:03:00 EDT, Tablet, [facility], Partial fill upon patient request if the prescription is for a schedule II opioid drug.... Start Date: 12/21/20 Stop Date: 12/26/20 Status: Ordered Dilaudid 4 mg oral tablet 4 mg, Tablet, By Mouth, Hold for: sedation, RR<12 or change in neuro status, 12/21/20 8:57:00 EDT Start Date: 12/21/20 Stop Date: 12/21/20 Status: Completed Dilaudid 4 mg oral tablet 4 mg, Tablet, By Mouth, Hold for: sedation, RR<12 or change in neuro status, 12/21/20 12:57:00 EDT Start Date: 12/21/20 Stop Date: 12/21/20 Status: Completed febuxostat 40 mg oral tablet 1 tablet [...] 04/12/20 9:51:00 EDT, Route to Pharmacy Electronically, [facility]/pharmacy #[id number], 183, cm, 04/12/20 8:00:00EDT, Height, 103, kg, 04/11/20 6:30:00 EDT, Dry Weight Start Date: 04/12/20 Stop Date: 08/10/20 Status: Ordered gabapentin 100 mg oral capsule 100 mg, 1, capsule, By Mouth, 3 times a day, # 90 capsule, Refills 2, Tot. Refills 2, Maintenance, 12/21/20 10:03:00 EDT, Route to Pharmacy Electronically, [facility], Partial fill uponpatient request if [...] capsule, 2 Refills, Maintenance, 12/21/20 10:03:00EDT, Capsule, [facility], Partial fill upon patient [...] opioid drug. Start Date: 12/12/20 Status: Ordered metoprolol 25 mg oral tablet 25 mg, Tablet, By Mouth, 12/21/20 9:00:00 EDT Start Date: 12/21/20 Stop Date: 12/21/20 Status: Completed mirtazapine 15 mg oral tablet 1 tablet [...] Refills, Maintenance, 03/08/20 19:56:00 EDT, DIS Tablet, [facility]/pharmacy #[id number], 183, cm, 03/08/20 16:59:00 [...] Diabetic foot ulcer(Confirmed) Active Peripheral neuropathy(Confirmed) Active Results Orders for Microbiology Reports Name Date AFB Culture w/ AFB Smear, Nonrespiratory (ACID FAST CULT,NON-RESP) 12/19/20 Anaerobic Culture (ANAEROBIC CULTURE) 12/19/20 Fungal Culture, Nonrespiratory (FUNGAL C ULT,NON-RESPIRATORY) 12/19/20 Tissue Culture w/ Gram Smear (TISSUE/BIO PSY CULT.) 12/19/20 Microbiology Reports TEST:Anaerobic Culture STATUS:Unauthenticated BODY SITE: SOURCE:TISSUE1 COLLECTED DATE/TIME:12/19/20 5:15 PM Anaerobic Culture SPECIMEN DESCRIPTION : TISSUE RIGHT LATERAL FOOT SPECIAL REQUESTS : NONE CULTURE : NO ANAEROBES ISOLATED SO FAR. REPORT STATUS : PRELIMINARY REPORT TEST:Tissue/Biopsy Culture STATUS:Auth (Verified) BODY SITE: SOURCE:TISSUE1 COLLECTED DATE/TIME:12/19/20 5:15 PM Tissue/Biopsy Culture SPECIMEN DESCRIPTION : TISSUE RIGHT LATERAL FOOT SPECIAL REQUESTS : NONE GRAM STAIN : 3+ TISSUE CELLS 2+ POLYMORPHONUCLEAR LEUKOCYTES NO ORGANISMS SEEN CULTURE : 1+ PSEUDOMONAS AERUGINOSA REPORT STATUS : FINAL 12/21/2020 ORGANISM 1+ PSEUDOMONAS AERUGINOSA METHOD MIN. INHIB. CONC. (MCG/ML) CEFEPIME SUSCEPTIBLE CEFTAZIDIME SUSCEPTIBLE CIPROFLOXACIN SUSCEPTIBLE GENTAMICIN SUSCEPTIBLE LEVOFLOXACIN SUSCEPTIBLE MEROPENEM SUSCEPTIBLE PIPERACILLIN/TAZOBAC SUSCEPTIBLE TEST:Fungal Culture, Non-Respiratory STATUS:Unauthenticated BODY SITE: SOURCE:TISSUE1 COLLECTED DATE/TIME:12/19/20 5:15 PM Fungal Culture, Non-Respiratory SPECIMEN DESCRIPTION : TISSUE RIGHT LATERAL FOOT SPECIAL REQUESTS : NONE DIRECT EXAM : NO FUNGAL ELEMENTS OBSERVED REPORT STATUS : PRELIMINARY REPORT TEST:AFB Culture w/AFB Smear, Non-Respiratory STATUS:Unauthenticated BODY SITE: SOURCE:TISSUE1 COLLECTED DATE/TIME:12/19/20 5:15 PM AFB Culture w/AFB Smear, Non-Respiratory SPECIMEN DESCRIPTION : TISSUE RIGHT LATERAL FOOT SPECIAL REQUESTS : NONE DIRECT EXAM : NO ACID FAST BACILLI SEEN ON DIRECT SMEAR, TEST PERFORMED AT [facility] CULTURE : SPECIMEN SENT TO [employer], [place], [place] REPORT STATUS : PRELIMINARY REPORT Vital Signs Most recent to oldest [Reference Range]: 1 2 3 Height 183 cm (12/21/20 12:29 PM) 183 cm (12/21/20 9:04 AM) 183 cm (12/19/20 9:00 PM) Weight 98 kg (12/19/20 9:00 PM) 98.3 kg (12/19/20 2:10 PM) Oxygen Saturation [94-100 %] 97 % (12/21/20 1:00 PM) 93 % *L* (12/21/20 12:00 PM) 100 % (12/20/20 8:00 PM) Pulse Rate [55-90 bpm] 73 bpm (12/21/20 1:00 PM) 71 bpm (12/21/20 12:00 PM) 79 bpm (12/21/20 10:36 AM) Body Mass Index [18.5-24.99] 29.26 *H* (12/19/20 9:00 PM) 29.35 *H* (12/19/20 2:10 PM) Blood Pressure [90-138/55-84 mm Hg] 127/72mm Hg (12/21/20 1:00 PM) 153/79mm Hg *H* (12/21/20 12:00 PM) 84/153mm Hg *L* (12/21/20 10:36 AM) Respiratory Rate [16-30 br/min] 18 br/min (12/21/20 1:52 PM) 18 br/min (12/21/20 12:00 PM) 18 br/min (12/21/20 10:36 AM) Temperature [96.8-100.4 DegF] 98.8 DegF (12/21/20 12:29 PM) 98.1 DegF (12/21/20 9:04 AM) 98.1 DegF (12/21/20 4:00 AM) Mode of Delivery (Oxygen) Room air (12/21/20 1:00 PM) Room air (12/21/20 12:00 PM) Room air (12/20/20 8:00 PM) Blood pressure sites Arm, right (12/20/20 8:00 PM) Arm, right (12/20/20 3:00 PM) Arm, right (12/20/20 11:00 AM) Temperature Route Oral (12/21/20 12:29 PM) Oral (12/21/20 9:04 AM) Oral (12/20/20 8:00 PM) Dry Weight 98 kg (12/19/20 9:00 PM) Weight Obtained Via Standing scale (12/19/20 2:10 PM) Sensory deficits None (12/19/20 9:00 PM) Social History Social History Type Response Smoking Status Never smoker entered on: 04/28/18 Sex
--- OUTSIDE RECORDS SUMMARY | 2022-11-14 10:52 | XMS_ITS | Continuity of Care Document ---
Author Name Unknown Organization [facility] Address [address] [address]- Care Team Providers Care Industrial Health And Safety Professor Name Role Phone Flako Callahan DO Primary Care Physician En[place] [id number] Date(s): 06/18/19 - 10/16/19 [facility] [address] [address]- [place] Attending Physician: Jason YATES, Keisha Ortiz Admitting Physician: Jason YATES, Keisha Ortiz Referring Physician: Flako Callahan DO Allergies, Adverse [...] Maintenance, 209:17:00 EST, Route to Pharmacy Electronically, [facility]/pharmacy #[id number], 183, cm, 09/17/19 [...] 1 Refills, Maintenance, 09/14/19 13:06:00 EST, Tablet, [facility]/pharmacy #[id number], 183, cm, 09/14/19 [...] 09/14/19 11:11:00 EST, Route to Pharmacy Electronically, [facility]/pharmacy #[id number], Partialfill upon patient request, 183, cm, 09/14/19 9:28:0... Start Date: 09/14/19 Status: Ordered Vitamin C 1000 mg oral tablet 1 tablet = 1,000 mg, By Mouth, Daily, # 30 tablet, 0 Refills, Maintenance, 07/13/19 8:13:25 EST, Tablet Start Date: 07/13/19 Status: Ordered Vitamin D 21245 iu oral capsule 50,000 International_Units, 1, capsule, [...]
--- OUTSIDE RECORDS SUMMARY | 2022-11-14 10:52 | XMS_ITS | Continuity of Care Document ---
Author Name Unknown Organization [facility] Address [address] [place] [address]- Care Team Providers Care Film Mounter Name Role Phone Sindy Flako LANDRY Primary Care Physician [place] [facility] [place]21 - 04/04/21 [facility] [address] [address] [phone] Attending Physician: Cachorro Nielsen MD Admitting Physician: [...] 0 Refills, Maintenance, 11/09/20 8:47:00 EDT, [facility]/pharmacy #[id number], Partial fill upon patient request [...] capsule, 2 Refills, Maintenance, 12/21/20 10:03:00EDT, Capsule, [facility], Partial fill upon patient [...]
--- OUTSIDE RECORDS SUMMARY | 2022-11-14 10:52 | XMS_ITS | Continuity of Care Document ---
Author Name Unknown Organization [facility] Address [address] [place] [address]- Care Team Providers Care Web Design Specialist Name Role Phone Sindy Flako LANDRY Primary Care Physician [place] [facility] [place] 01/04/21 - 02/06/21 [facility] 48 [facility] [address] [place] [address] [phone] Attending Physician: Cachorro Nielsen MD Admitting Physician: [...] Unknown, 0 Refills, Maintenance, 11/09/20 8:47:00 EDT, [facility]/pharmacy #[id number], Partial fill upon patient [...] 04/12/20 9:51:00 EDT, Route to Pharmacy Electronically, [facility]/pharmacy #[id number], 183, cm, 04/12/20 8:00:00EDT, [...] capsule, 2 Refills, Maintenance, 12/21/20 10:03:00EDT, Capsule, [facility], Partial fill upon patient [...] Refills, Maintenance, 03/08/20 19:56:00 EDT, DIS Tablet, [facility]/pharmacy #[id number], 183, cm, 03/08/20 16:59:00 [...]
--- OUTSIDE RECORDS SUMMARY | 2022-11-14 10:52 | XMS_ITS | Continuity of Care Document ---
Author Name Unknown Organization [facility] Address [address] [id number]- Care Team Providers Care Refrigeration Lead Name Role Phone Flako Callahan DO Primary Care Physician Encounter [facility] [place] Date(s): 09/16/19 - 09/26/19 [facility] [address] [address]- [place] Attending Physician: Lion Vann Admitting Physician: Lion [...] Maintenance, 209:17:00 EST, Route to Pharmacy Electronically, [facility]/pharmacy #[id number], 183, cm, 09/17/19 7:23:00 EST, [...] 1 Refills, Maintenance, 09/14/19 13:06:00 EST, Tablet, [facility]/pharmacy #[id number], 183, cm, 09/14/19 9:28:00 EST, Height, [...] 09/14/19 11:11:00 EST, Route to Pharmacy Electronically, [facility]/pharmacy #[id number], Partialfill upon patient request, 183, cm, 09/14/19 9:28:0... Start Date: 09/14/19 Status: Ordered Vitamin C 1000 mg oral tablet 1 tablet = 1,000 mg, By Mouth, Daily, # 30 tablet, 0 Refills, Maintenance, 07/13/19 8:13:25 EST, Tablet Start Date: 07/13/19 Status: Ordered Vitamin D 67058 iu oral capsule 50,000 International_Units, 1, capsule, [...]
--- OUTSIDE RECORDS SUMMARY | 2022-11-14 10:52 | XMS_ITS | Continuity of Care Document ---
Author Name Unknown Organization [facility] Address [address] [place] [address]- Care Team Providers Care Contact And Service Clerks Supervisor Name Role Phone Sindy Flako LANDRY Primary Care Physician En[place] [facility] [place] Date(s): 04/02/21 - 05/02/21 [facility] [address] [address] [phone] Attending Physician: Cachorro Nielsen MD Admitting Physician: [...] Unknown, 0 Refills, Maintenance, 11/09/20 8:47:00 EDT, [facility]/pharmacy #[id number], Partial fill upon patient [...] 04/12/20 9:51:00 EDT, Route to Pharmacy Electronically, [facility]/pharmacy #[id number], 183, cm, 04/12/20 8:00:00EDT, [...] capsule, 2 Refills, Maintenance, 12/21/20 10:03:00EDT, Capsule, [facility], Partial fill upon patient [...] Refills, Maintenance, 03/08/20 19:56:00 EDT, DIS Tablet, [facility]/pharmacy #[id number], 183, cm, 03/08/20 16:59:00 [...]
--- OUTSIDE RECORDS SUMMARY | 2022-11-14 10:52 | XMS_ITS | Continuity of Care Document ---
Author Name Unknown Organization [facility] Address [address] [place] [address]- Care Team Providers Care Procedural Nurse Name Role Phone Sindy Flako LANDRY Primary Care Physician [place] [facility] [place] 12/17/20 - 01/17/21 [facility] 48 [facility] [address] [place] [address] [phone] Attending Physician: Cachorro Nielsen MD Admitting Physician: [...] Unknown, 0 Refills, Maintenance, 11/09/20 8:47:00 EDT, [facility]/pharmacy #[id number], Partial fill upon patient [...] 04/12/20 9:51:00 EDT, Route to Pharmacy Electronically, [facility]/pharmacy #[id number], 183, cm, 04/12/20 8:00:00EDT, [...] capsule, 2 Refills, Maintenance, 12/21/20 10:03:00EDT, Capsule, [facility], Partial fill upon patient request [...] Refills, Maintenance, 03/08/20 19:56:00 EDT, DIS Tablet, [facility]/pharmacy #[id number], 183, cm, 03/08/20 16:59:00 [...]
--- OUTSIDE RECORDS SUMMARY | 2022-11-14 10:52 | XMS_ITS | Continuity of Care Document ---
Author Name Unknown Organization [facility] Address [address] [place] [address]- Care Team Providers Care Continuity Manager Name Role Phone Flako Callahan DO Primary Care Physician [phone] En[place] [facility] [place] Date[place] 12/17/20 - 01/16/21 [facility] [address] [place] [address]- Allergies, Adverse Reactions, Alerts Substance Reaction Severity [...] 0 Refills, Maintenance, 11/09/20 8:47:00 EDT, [facility]/pharmacy #[id number], Partial fill upon patient [...] 9:51:00 EDT, Route to Pharmacy Electronically, [facility]/pharmacy #[id number], 183, cm, 04/12/20 8:00:00EDT, [...] 2 Refills, Maintenance, 12/21/20 10:03:00EDT, Capsule, [facility], Partial fill upon patient request [...] Maintenance, 03/08/20 19:56:00 EDT, DIS Tablet, [facility]/pharmacy #[id number], 183, cm, 03/08/20 16:59:00 [...]
--- OUTSIDE RECORDS SUMMARY | 2022-11-14 10:52 | XMS_ITS | Continuity of Care Document ---
Author Name Unknown Organization [facility] Address [address] [place] [address]- Care Team Providers Care Farmworker Chicken Farm Name Role Phone Enrico Flako LANDRY Primary Care Physician [phone] [place] [facility] 10/26/20 - 11/01/[address] [address]- [phone] Encounter Diagnosis Osteomyelitis(Final) - 10/26/20 Discharge Disposition: A-D/C Home Attending Physician: Megan Patel MD Admitting Physician: Lucero Gibbs MD Referring Physician: Not on Staff, Referring [...] Medications acetaminophen-oxyCODONE 325 mg-5 mg oral tablet 2 tablet, Tablet, By Mouth, Every 4 hours, PRN for Pain , Moderate, Routine, 10/26/20 13:27:00 EST Start Date: 10/26/20 Stop Date: 11/02/20 Status: Discontinued amLODIPine 10 mg oral tablet 10 mg, Tablet, By Mouth, 11/01/20 9:00:00 EDT Start Date: 11/01/20 Stop Date: 11/01/20 Status: Completed amLODIPine 10 mg oral tablet [...] opioid drug. Start Date: 10/26/20 Status: Ordered Dilaudid Inj 2 mg, Injection, IV Push Slowly, Every 6 hours, PRN for Pain , Severe, Routine, 10/26/20 13:29:00 EST Start Date: 10/26/20 Stop Date: 11/02/20 Status: Discontinued doxycycline monohydrate 100 mg oral tablet = 100 mg, By Mouth, Every 12 hours, # 12 capsule, 0 Refills, Acute 11/07/20 10:00:00 EDT, 11/01/20 14:53:00 EDT, Tablet, [facility]/pharmacy #[id number], Partial fill upon patient request [...] 04/12/20 9:51:00 EDT, Route to Pharmacy Electronically, [facility]/pharmacy #[id number], 183, cm, 04/12/20 8:00:00EDT, Height, [...] EDT Start Date: 04/11/20 Status: Ordered metoprolol 50 mg oral tablet, extended release 50 mg, XL Tablet, By Mouth, 11/01/20 9:00:00 EDT Start Date: 11/01/20 Stop Date: 11/01/20 Status: Completed Metoprolol Succinate ER 50 mg [...] Refills, Maintenance, 03/08/20 19:56:00 EDT, DIS Tablet, [facility]/pharmacy #[id number], 183, cm, 03/08/20 16:59:00 EDT, Height, 108, kg, 03/08/20 16:59:00 EDT, Dry Weight Start Date: 03/08/20 Stop Date: 03/11/20 Status: Ordered Percocet 10 mg-325 mg oral tablet 1 tablet, By Mouth, Every 4 hours, # 18 tablet, 0 Refills, Acute 11/04/20 10:00:00 EDT, 11/01/20 14:54:00 EDT, [facility]/pharmacy #[id number], Partial fill upon patient request [...] Results Orders for Microbiology Reports Name Date Wound Superficial Culture W/ Gram Smear (Culture Wound Superficial w/ Gram Smear) 10/26/20 Blood Culture 10/26/20 Blood Culture #2 10/26/20 Microbiology Reports TEST:Superficial Wound Culture STATUS:Auth (Verified) BODY SITE: SOURCE:ULCER1 COLLECTED DATE/TIME:10/26/20 5:11 PM Superficial Wound Culture SPECIMEN DESCRIPTION : ULCER FOOT RT SPECIAL REQUESTS : NONE GRAM STAIN : 1+ POLYMORPHONUCLEAR LEUKOCYTES 1+ GRAM NEGATIVE RODS CULTURE : 3+ ENTEROBACTER CLOACAE REPORT STATUS : FINAL 10/29/2020 ORGANISM 3+ ENTEROBACTER CLOACAE METHOD MIN. INHIB. CONC. (MCG/ML) AMPICILLIN RESISTANT AMPICILLIN/SULBACTAM RESISTANT AMOXICILLIN/CLAVULAN RESISTANT CEFAZOLIN RESISTANT CEFEPIME SUSCEPTIBLE CEFTRIAXONE SUSCEPTIBLE CIPROFLOXACIN SUSCEPTIBLE ERTAPENEM SUSCEPTIBLE GENTAMICIN SUSCEPTIBLE LEVOFLOXACIN SUSCEPTIBLE MEROPENEM SUSCEPTIBLE PIPERACILLIN/TAZOBAC SUSCEPTIBLE TRIMETH/SULFAMETHOX SUSCEPTIBLE TETRACYCLINE SUSCEPTIBLE TEST:Blood Culture STATUS:Auth (Verified) BODY SITE: SOURCE:Blood COLLECTED DATE/TIME:10/26/20 11:40 AM Blood Culture SPECIMEN DESCRIPTION : BLOOD LA SPECIAL REQUESTS : NONE CULTURE : NO GROWTH 5 DAYS. REPORT STATUS : FINAL 10/31/2020 TEST:Blood Culture, Second Order STATUS:Auth (Verified) BODY SITE: SOURCE:Blood COLLECTED DATE/TIME:10/26/20 11:40 AM Blood Culture, Second Order SPECIMEN DESCRIPTION : BLOOD LA SPECIAL REQUESTS : NONE CULTURE : NO GROWTH 5 DAYS. REPORT STATUS : FINAL 10/31/2020 Radiology Reports * Exam Date Time Procedure Performing Provider Status 10/26/20 10:21 AM Foot Min 3 Views Right Jabier Nilsflorence flores; Auth (Verified) Notes: (Foot Min 3 Views Right) Reason For Exam: diabetic wound, worsening pain;Other: RESULT: Foot Min 3 Views Right Foot Min 3 Views Right, 3 views Reason: Other:; diabetic wound, worsening pain; Clinical Question(s): Osteomyelitis COMPARISON: Right foot dated 10/08/2020. FINDINGS: Bone erosion at the base of the fifth metatarsal adjacent to soft tissue swelling and ulceration, suspicious for osteomyelitis. Multifocal arthritic changes. 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 IMPRESSION: Interval development of bone loss at the base of the fifth metatarsal adjacent to soft tissue ulceration and swelling is consistent with osteomyelitis. A Ross message has been communicated via the [employer] system on 10/26/2020 10:26 AM, Message ID [id number]. WSN: [id number] Ordering Physician: Sharon Marie Dictated By: Rebeca Brooks MD Dictated Date/Time: 10/26/20 10:26 a Reviewed By: Rebeca Brooks MD Signed By: Rebeca Brooks MD Signed Date/Time: 10/26/20 10:26 am Transcribed By: GUILHERME Transcribed Date/Time: 10/26/20 10:25 am Vital Signs Most recent to oldest [Reference Range]: 1 2 3 Height 182 cm (11/01/20 11:41 AM) 182 cm (11/01/20 7:36 AM) 182 cm (10/31/20 11:50 PM) Weight 105.5 kg (10/29/20 12:05 PM) 105.5 kg (10/26/20 2:54 PM) 106 kg (10/26/20 10:29 AM) Oxygen Saturation [94-100 %] 97 % (11/01/20 11:41 AM) 100 % (11/01/20 7:36 AM) 95 % (10/31/20 11:50 PM) Pulse Rate [55-90 bpm] 60 bpm (11/01/20 11:41 AM) 61 bpm (11/01/20 8:35 AM) 61 bpm (11/01/20 7:36 AM) Body Mass Index [18.5-24.99] 31.85 *>HHI* (10/29/20 12:05 PM) 31.85 *>HHI* (10/26/20 2:54 PM) Blood Pressure [90-138/55-84 mm Hg] 148/85mm Hg *H* (11/01/20 11:41 AM) 139/79mm Hg *H* (11/01/20 8:35 AM) 139/79mm Hg *H* (11/01/20 8:35 AM) Respiratory Rate [16-30 br/min] 18 br/min (11/01/20 11:41 AM) 20 br/min (11/01/20 10:42 AM) 20 br/min (11/01/20 9:04 AM) Temperature [96.8-100.4 DegF] 97.3 DegF (11/01/20 11:41 AM) 98.3 DegF (11/01/20 7:36 AM) 98.6 DegF (10/31/20 11:50 PM) Liters per Minute 0 L/min (10/31/20 10:54 AM) 0 L/min (10/31/20 7:22 AM) 0 L/min (10/30/20 11:05 AM) Mode of Delivery (Oxygen) Room air (11/01/20 11:41 AM) Room air (11/01/20 7:36 AM) Room air (10/31/20 11:50 PM) Blood pressure sites Arm, left (11/01/20 11:41 AM) Arm, right (11/01/20 7:36 AM) Arm, right (10/31/20 11:50 PM) Temperature Route Oral (11/01/20 11:41 AM) Oral (11/01/20 7:36 AM) Oral (10/31/20 11:50 PM) Dry Weight 105.5 kg (10/29/20 12:05 PM) 105.5 kg (10/26/20 2:54 PM) 106 kg (10/26/20 10:29 AM) Weight Obtained Via Standing scale (10/29/20 12:05 PM) Bed scale (10/26/20 2:54 PM) Dry Weight Obtained Via Standing scale (10/29/20 12:05 PM) Bed scale (10/26/20 2:54 PM) Social History Social History Type Response Smoking Status Never smoker entered on: 04/28/18 Sex
--- OUTSIDE RECORDS SUMMARY | 2022-11-14 10:52 | XMS_ITS | Continuity of Care Document ---
Author Name Unknown Organization [facility] Address [address] [place] [address]- Care Team Providers Care Tubular Riveter Name Role Phone Flako Callahan DO Primary Care Physician [phone] Encounter [facility] [place] [facility] [place] [id number] Date(s): 04/24/22 - 05/01/22 [facility] [address] [place] [address]- Attending Physician: Ngoc YATES, Jennifer Donis Referring [...] Unknown, 0 Refills, Maintenance, 11/09/20 8:47:00 EDT, [facility]/pharmacy #[id number], Partial fill upon [...] 04/12/20 9:51:00 EDT, Route to Pharmacy Electronically, [facility]/pharmacy #[id number], 183, cm, 04/12/20 [...] Refills, Maintenance, 03/08/20 19:56:00 EDT, DIS Tablet, [facility]/pharmacy #[id number], 183, cm, 03/08/20 [...] History Type Response Tobacco Other: none. Sex Care Team Personnel Name: Flako Callahan DO Address: [address] [place], [place] [address]
--- OUTSIDE RECORDS SUMMARY | 2022-11-14 10:52 | XMS_ITS | Continuity of Care Document ---
Author Name Unknown Organization [facility] Address Unknown Care Team Providers Care Director Surface Transportation Name Role Phone Flako Callahan DO Primary Care Physician [place] [facility] [place] Date(s): 11/12/20 - 12/12/20 [facility] Attending Physician: Lion Vann Admitting Physician: Lion [...] days, # 30 Gm, 0 Refills, Acute 05/01/21 13:43:00 EDT, 12/05/20 13:43:00 EDT, Ointment, [facility]/pharmacy #[id number], Partial fill upon patient request if the prescription is for a schedule II opioid drug., 1 application... Start Date: 12/05/20 Stop Date: 12/15/20 Status: Ordered Dakins Half Strength 0.25% topical solution See Instructions, apply to wound for 15 minutes, # 1 Unknown, 0 Refills, Maintenance, 11/09/20 8:47:00 EDT, [facility]/pharmacy #[id number], Partial fill upon patient request if [...] 04/12/20 9:51:00 EDT, Route to Pharmacy Electronically, [facility]/pharmacy #[id number], 183, cm, 04/12/20 8:00:00EDT, Height, 103, [...] Refills, Maintenance, 03/08/20 19:56:00 EDT, DIS Tablet, [facility]/pharmacy #[id number], 183, cm, 03/08/20 16:59:00 EDT, Height, [...]
--- OUTSIDE RECORDS SUMMARY | 2022-11-14 10:52 | XMS_ITS | Continuity of Care Document ---
Author Name Unknown Organization [facility] Address [address] [place] [address]- Care Team Providers Care Bioassayist Name Role Phone Sindy Flako LANDRY Primary Care Physician [phone] [place] [facility] [place] 03/21/21 - 04/21/21 [facility] [address] [facility] [address] [place] [address] [phone] Attending Physician: Navid Rudd MD Admitting Physician: Navid Rudd MD Allergies, Adverse Reactions, Alerts Substance Reaction [...] Unknown, 0 Refills, Maintenance, 11/09/20 8:47:00 EDT, [facility]/pharmacy #[id number], Partial fill upon patient request [...] 04/12/20 9:51:00 EDT, Route to Pharmacy Electronically, [facility]/pharmacy #[id number], 183, cm, 04/12/20 8:00:00EDT, Height, [...] capsule, 2 Refills, Maintenance, 12/21/20 10:03:00EDT, Capsule, [facility], Partial fill upon patient [...] Refills, Maintenance, 03/08/20 19:56:00 EDT, DIS Tablet, [facility]/pharmacy #[id number], 183, cm, 03/08/20 16:59:00 EDT, [...]
--- OUTSIDE RECORDS SUMMARY | 2022-11-14 10:52 | XMS_ITS | Continuity of Care Document ---
Author Name Unknown Organization [facility] Address [address] [place] [address]- Care Team Providers Care Collection Coordinator Name Role Phone Ruben Callahan DOmekhi Donis Primary Care Physician [phone] [place] [facility] [place] 10[place]06[place]19 [facility] [address] [place] [address]- [facility] Attending Physician: Cachorro Nielsen MD Admitting Physician: [...] Maintenance, :17:00 EST, Route to Pharmacy Electronically, [facility]/pharmacy #[id number], 183, cm, 09/17/19 7:23:00 EST, [...] 1 Refills, Maintenance, 09/14/19 13:06:00 EST, Tablet, [facility]/pharmacy #[id number], 183, cm, 09/14/19 9:28:00 EST, [...] Start Date: 07/13/19 Status: Ordered Vitamin D 67446 iu oral capsule 50,000 International_Units, 1, capsule, [...]
--- OUTSIDE RECORDS SUMMARY | 2022-11-14 10:52 | XMS_ITS | Continuity of Care Document ---
Author Name Unknown Organization [facility] Address [address] [facility] 2[address] Floor [address] [place] [address]- Care Team Providers Care Casket Inspector Name Role Phone Flako Callahan DO Primary Care Physician En[place] [facility] [place] Date(s): 12/12/20 - 12/19/20 [facility] [place] [address] [facility] [address] [place] [address]- Attending Physician: Davin Banegas MD Admitting Physician: [...] 0 Refills, Maintenance, 11/09/20 8:47:00 EDT, [facility]/pharmacy #[id number], Partial fill upon patient request if [...] 9:51:00 EDT, Route to Pharmacy Electronically, [facility]/pharmacy #[id number], 183, cm, 04/12/20 8:00:00EDT, Height, 103, [...] Maintenance, 03/08/20 19:56:00 EDT, DIS Tablet, [facility]/pharmacy #[id number], 183, cm, 03/08/20 16:59:00 EDT, Height, [...] Active Diabetes mellitus(Confirmed) Active Peripheral neuropathy(Confirmed) Active Vital Signs Most recent to oldest [Reference Range]: 1 Height 183 cm (12/12/20 4:02 PM) Weight 96.36 kg (12/12/20 4:02 PM) Oxygen Saturation [94-100 %] 95 % (12/12/20 4:02 PM) Pulse Rate [55-90 bpm] 79 bpm (12/12/20 4:02 PM) Body Mass Index [18.5-24.99] 28.77 *H* (12/12/20 4:02 PM) Blood Pressure [90-138/55-84 mm Hg] 102/ 78mm Hg (12/12/20 4:02 PM) Blood pressure sites Arm, right (12/12/20 4:02 PM) Weight Obtained Via Bed scale (12/12/20 4:02 PM) Social History Social History Type Response Smoking Status Never smoker entered on: 04/28/18 Sex
--- OUTSIDE RECORDS SUMMARY | 2022-11-14 10:52 | XMS_ITS | Continuity of Care Document ---
Author Name Unknown Organization [facility] Address [address] [place] [address]- Care Team Providers Care Fireworks Display Specialist Name Role Phone Enrico Flako LANDRY Primary Care Physician [phone] Encounter [facility] [place] Date(s): 10/17/20 - 11/16/20 [facility] [address] [place] [address]- Attending Physician: Lion Vann Admitting Physician: Lion [...] EVERY DAY Start Date: 10/08/20 Status: Ordered minocycline 100 mg oral capsule 1 capsule = 100 mg, By Mouth, Every 12 hours, for 14 days, # 28 capsule, 0 Refills, Acute 11/23/20 8:48:00 EDT, 11/09/20 8:48:00 EDT, Capsule, [facility]/pharmacy #[id number], Partial fill upon patient request ifthe prescription is for a schedule II opioid drug.,... Start Date: 11/09/20 Stop Date: 11/23/20 Status: Ordered mirtazapine 15 mg oral tablet [...]
--- OUTSIDE RECORDS SUMMARY | 2022-11-14 10:52 | XMS_ITS | Continuity of Care Document ---
Author Name Unknown Organization [facility] Address [address] [place] [address]- Care Team Providers Care Railcar Foreman Name Role Phone Sindy Flako LANDRY Primary Care Physician Encounter [facility] Date(s): 03/16/21 - 03/19/[address] [address]- Discharge Disposition: A-D/C Home Attending Physician: Elizabeth Ellis MD Admitting Physician: Chalo Hoang MD Referring Physician: Not on Staff, Referring [...] n pneumococcal 23-valent vaccine 08/01/12 Given Medications Acetaminophen Tablet 975 mg, Tablet, By Mouth, 03/19/21 9:00:00 EDT Start Date: 03/19/21 Stop Date: 03/19/21 Status: Completed acetaminophen-oxycodone 325 mg-10 mg oral tablet 1 [...] oral tablet 10 mg, Tablet, By Mouth, 03/19/21 9:00:00 EDT Start Date: 03/19/21 Stop Date: 03/19/21 Status: Completed atorvastatin 40 mg oral tablet 1 tablet = 40 mg, By Mouth, Daily, 0 Refills, Maintenance, 10/26/20 15:14:00 EST, Partial fill uponpatient request if the prescription is for a schedule II opioid drug. Start Date: 10/26/20 Status: Ordered Dakins Half Strength 0.25% topical solution See Instructions, apply to wound for 15 minutes, # 1 Unknown, 0 Refills, Maintenance, 11/09/20 8:47:00 EDT, [facility]/pharmacy #[id number], Partial fill upon patient [...] 9:51:00 EDT, Route to Pharmacy Electronically, [facility]/pharmacy #[id number], 183, cm, 04/12/20 8:00:00EDT, [...] EDT Start Date: 04/11/20 Status: Ordered lisinopril 20 mg oral tablet 20 mg, Tablet, By Mouth, 03/19/21 9:00:00 EDT Start Date: 03/19/21 Stop Date: 03/19/21 Status: Completed LORazepam 0.5 mg oral tablet 1 tablet = 0.5 mg, By Mouth, Every 8 hours, PRN as needed for anxiety, TAKE 1 TABLET BY MOUTH EVERY8 HOURS NEEDED FOR ANXIETY. Start Date: 03/16/21 Status: Ordered Lyrica 50 mg oral capsule 1 capsule = 50 mg, By Mouth, 2 times a day, # 60 capsule, 2 Refills, Maintenance, 12/21/20 10:03:00EDT, Capsule, [facility], Partial fill upon patient request if the prescription is for a schedule II opioid drug., 183, cm, 12/21/20 9:04... Start Date: 12/21/20 Stop Date: 03/21/21 Status: Ordered metoprolol 50 mg oral tablet, extended release 50 mg, XL Tablet, By Mouth, 03/19/21 9:00:00 EDT Start Date: 03/19/21 Stop Date: 03/19/21 Status: Completed Metoprolol Succinate ER 50 mg [...] Status: Ordered oxyCODONE 5 mg oral tablet 10 mg, Tablet, By Mouth, Every 4 hours, PRN for Pain , Moderate, Routine, 03/17/21 19:36:00 EDT Start Date: 03/17/21 Stop Date: 03/24/21 Status: Ordered probenecid 500 mg oral tablet [...] for Microbiology Reports Name Date Blood Culture 03/16/21 Blood Culture #2 03/16/21 Microbiology Reports TEST:Blood Culture, Second Order STATUS:Unauthenticated BODY SITE: SOURCE:Blood COLLECTED DATE/TIME:03/16/21 11:15 AM Blood Culture, Second Order SPECIMEN DESCRIPTION : BLOOD SPECIAL REQUESTS : NONE CULTURE : NO GROWTH 3 DAYS REPORT STATUS : PRELIMINARY REPORT TEST:Blood Culture STATUS:Unauthenticated BODY SITE: SOURCE:Blood COLLECTED DATE/TIME:03/16/21 11:10 AM Blood Culture SPECIMEN DESCRIPTION : BLOOD SPECIAL REQUESTS : NONE CULTURE : NO GROWTH 3 DAYS REPORT STATUS : PRELIMINARY REPORT Radiology Reports * Exam Date Time Procedure Performing Provider Status 03/16/21 11:26 AM Foot Min 3 Views Right Katharina Malcolm ca; Auth (Verified) Notes: (Foot Min 3 Views Right) Reason For Exam: Pain RESULT: Foot Min 3 Views Right Foot Min 3 Views Right, 3 views Hx of Present Illness: right foot ulcer, increased pain, pain medication not working; Reason: Pain;Clinical Question(s): Osteomyelitis COMPARISON: Multiple prior right foot radiographs, the most recent of which is dated 12/03/2020. FINDINGS: There is soft tissue swelling in the lateral midfoot with focal contour irregularity within this region seen on the oblique view, likely reflecting the reported skin ulcer. Within the fifth metatarsal base, there is mixture of periosteal reaction and lucency. The degree of periosteal reaction is best seen on the lateral view. There is bony irregularity of the cuboid, increased as compared to the prior examination. There is joint space narrowing of the navicular cuneiform articulation with diminutive appearance of the lateral aspect of the navicular and sclerosis involving the cuneiforms. Joint space narrowing is also seen at the tarsometatarsal joints. 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 No acute displaced fracture. There are diffuse vascular calcifications. Dorsal soft tissue swelling is seen in the foot. IMPRESSION: Findings compatible with reported foot ulcer in the lateral midfoot with worsening destructive changes at the fifth tarsometatarsal joint concerning for septic arthritis/osteomyelitis. Additional progression of joint space narrowing, bony fragmentation and sclerosis in the midfoot asabove. This may reflect septic arthritis/osteomyelitis or Charcot joint. WSN: [id number] Ordering Physician: Julio Hernadez Dictated By: Alondra Jade MD Dictated Date/Time: 03/16/21 12:15 p Reviewed By: Alondra Jade MD Signed By: Alondra Jade MD Signed Date/Time: 03/16/21 12:15 pm Transcribed By: GUILHERME Transcribed Date/Time: 03/16/21 12:06 pm Vital Signs Most recent to oldest [Reference Range]: 1 2 3 4 Height 183 cm (03/19/21 11:45 AM) 183 cm (03/19/21 7:25 AM) 183 cm (03/19/21 4:26 AM) Weight 94 kg (03/16/21 3:53 PM) 94 kg (03/16/21 10:33 AM) Oxygen Saturation [94-100 %] 98 % (03/19/21 11:45 AM) 99 % (03/19/21 7:25 AM) 98 % (03/19/21 4:26 AM) Pulse Rate [55-90 bpm] 70 bpm (03/19/21 11:45 AM) 64 bpm (03/19/21 8:40 AM) 64 bpm (03/19/21 7:25 AM) Body Mass Index [18.5-24.99] 28.07 *H* (03/16/21 3:53 PM) Blood Pressure [90-138/55-84 mm Hg] 158/81mm Hg *H* (03/19/21 11:45 AM) 148/88mm Hg *H* (03/19/21 8:40 AM) 148/88mm Hg *H* (03/19/21 8:39 AM) 148/88mm Hg *H* (03/19/21 8:39 AM) Respiratory Rate [16-30 br/min] 18 br/min (03/19/21 1:18 PM) 18 br/min (03/19/21 11:45 AM) 18 br/min (03/19/21 9:39 AM) Temperature [96.8-100.4 DegF] 99.0 DegF (03/19/21 11:45 AM) 97.9 DegF (03/19/21 7:25 AM) 97.8 DegF (03/19/21 4:26 AM) Liters per Minute 0 L/min (03/18/21 3:53 AM) 0 L/min (03/17/21 11:40 PM) Mode of Delivery (Oxygen) Room air (03/19/21 11:45 AM) Room air (03/19/21 7:25 AM) Room air (03/19/21 4:26 AM) Blood pressure sites Arm, right (03/19/21 11:45 AM) Arm, right (03/19/21 7:25 AM) Arm, right (03/19/21 4:26 AM) Temperature Route Oral (03/19/21 11:45 AM) Oral (03/19/21 7:25 AM) Oral (03/19/21 4:26 AM) Dry Weight 94 kg (03/16/21 2:52 PM) 94 kg (03/16/21 10:33 AM) Dry Weight Obtained Via Patient/family stated (03/16/21 10:33 AM) Social History Social History Type Response Tobacco Other: none. Sex
--- OUTSIDE RECORDS SUMMARY | 2022-11-14 10:52 | XMS_ITS | Continuity of Care Document ---
Author Name Unknown Organization [facility] Address [address] [place] [address]- Care Team Providers Care Sports Commentator Name Role Phone Flako Callahan DO Primary Care Physician Encounter [facility] Date(s): 11/03/19 - 11/13/19 [facility] [address] [place] [address]- [facility] Attending Physician: Lion Vann Admitting [...] 209:17:00 EST, Route to Pharmacy Electronically, [facility]/pharmacy #[id number], 183, cm, 09/17/19 7:23:00 EST, Height, [...] Refills, Maintenance, 09/14/19 13:06:00 EST, Tablet, [facility]/pharmacy #[id number], 183, cm, 09/14/19 9:28:00 EST, Height, [...] 11:11:00 EST, Route to Pharmacy Electronically, [facility]/pharmacy #[id number], Partialfill upon patient request, 183, cm, 09/14/19 9:28:0... Start Date: 09/14/19 Status: Ordered Vitamin C 1000 mg oral tablet 1 tablet = 1,000 mg, By Mouth, Daily, # 30 tablet, 0 Refills, Maintenance, 07/13/19 8:13:25 EST, Tablet Start Date: 07/13/19 Status: Ordered Vitamin D 39568 iu oral capsule 50,000 International_Units, 1, capsule, [...]
--- OUTSIDE RECORDS SUMMARY | 2022-11-14 10:52 | XMS_ITS | Continuity of Care Document ---
Author Name Unknown Organization [facility] Address [address] [place] [address]- Care Team Providers Care Family Coach Name Role Phone Sindy Flako LANDRY Primary Care Physician En[place] [facility] Date(s): 02/20/21 - 03/23/21 [facility] [address] [address] [phone] Attending Physician: Cachorro Nielsen MD Admitting Physician: [...] Unknown, 0 Refills, Maintenance, 11/09/20 8:47:00 EDT, [facility]/pharmacy #[id number], Partial fill upon [...] 04/12/20 9:51:00 EDT, Route to Pharmacy Electronically, [facility]/pharmacy #[id number], 183, cm, 04/12/20 [...] capsule, 2 Refills, Maintenance, 12/21/20 10:03:00EDT, Capsule, [facility], Partial fill upon [...] Refills, Maintenance, 03/08/20 19:56:00 EDT, DIS Tablet, [facility]/pharmacy #[id number], 183, cm, 03/08/20 [...]
--- OUTSIDE RECORDS SUMMARY | 2022-11-14 10:52 | XMS_ITS | Continuity of Care Document ---
Author Name Unknown Organization [facility] Address [address] [place] [address]- Care Team Providers Care Gameplay Programmer Name Role Phone Sindy LANDRY Flako Donis Primary Care Physician Encounter [facility] Date(s): 03/15/21 - 04/17/21 [facility] [address] [facility] [address] [place] [id number] [phone] Attending Physician: Cachorro Nielsen MD Admitting Physician: [...] Unknown, 0 Refills, Maintenance, 11/09/20 8:47:00 EDT, [facility]/pharmacy #[id number], Partial fill upon patient request [...] 04/12/20 9:51:00 EDT, Route to Pharmacy Electronically, [facility]/pharmacy #[id number], 183, cm, 04/12/20 8:00:00EDT, Height, [...] capsule, 2 Refills, Maintenance, 12/21/20 10:03:00EDT, Capsule, [facility], Partial fill upon patient request [...] Refills, Maintenance, 03/08/20 19:56:00 EDT, DIS Tablet, [facility]/pharmacy #[id number], 183, cm, 03/08/20 16:59:00 EDT, [...]
--- OUTSIDE RECORDS SUMMARY | 2022-11-14 10:52 | XMS_ITS | Continuity of Care Document ---
Author Name Unknown Organization [facility] Address [address] [place] [address]- Care Team Providers Care Lead Javascript Developer Name Role Phone Flako Callahan DO Primary Care Physician En[place] [facility] Date(s): 04/11/20 - 04/12/[address] [address]- [facility] Discharge Disposition: A-D/C Home Attending Physician: Lia Ramires MD Admitting Physician: Lia Ramires MD Referring Physician: Lia Ramires MD Allergies, Adverse Reactions, Alerts Substance Reaction [...] 03/25/20 0:20:00 EDT, Route to Pharmacy Electronically, [facility]/pharmacy #[id number] Tablet, Partial fill upon patient [...] 9:51:00 EDT, Route to Pharmacy Electronically, [facility]/pharmacy #[id number], 183, cm, 04/12/20 8:00:00EDT, Height, [...] 04/11/20 Status: Ordered metoprolol 50 mg oral tablet [...] Maintenance, 03/08/20 19:56:00 EDT, DIS Tablet, [facility]/pharmacy #[id number], 183, cm, 03/08/20 16:59:00 EDT, Height, 108, kg, 03/08/20 16:59:00 EDT, Dry Weight Start Date: 03/08/20 Stop Date: 03/11/20 Status: Ordered oxyCODONE 5 mg oral tablet 5 mg, 1, tablet, By Mouth, Every 6 hours, PRN, # 10 tablet, Refills 0, Tot. Refills 0, Maintenance,Pain , Severe, 09/14/19 11:11:00 EST, Route to Pharmacy Electronically, [facility]/pharmacy #[id number], Partialfill upon patient request, 183, cm, 09/14/19 9:28:0... Start Date: 09/14/19 Status: Ordered Vitamin C 1000 mg oral tablet 1 tablet = 1,000 mg, By Mouth, Daily, # 30 tablet, 0 Refills, Maintenance, 07/13/19 8:13:25 EST, Tablet Start Date: 07/13/19 Status: Ordered Vitamin D 28970 iu oral capsule 50,000 International_Units, 1, capsule, By Mouth, Every week, Refills 0, Maintenance, 04/01/19 16:15:52 EDT Start Date: 04/01/19 Status: Ordered Problem List Condition Effective Dates Status Health Status Inform ant Afib(Confirmed) Active Atrial flutter(Confirmed) Active Vital Signs Most recent to oldest [Reference Range]: 1 2 3 Height 183 cm (04/12/20 8:00 AM) 183 cm (04/12/20 5:37 AM) 183 cm (04/11/20 11:59 PM) Weight 103 kg (04/11/20 6:44 AM) 103 kg (04/11/20 6:30 AM) Oxygen Saturation [94-100 %] 97 % (04/12/20 8:00 AM) 95 % (04/12/20 5:37 AM) 95 % (04/11/20 11:59 PM) Pulse Rate [55-90 bpm] 85 bpm (04/12/20 8:23 AM) 85 bpm (04/12/20 8:00 AM) 86 bpm (04/12/20 5:37 AM) Blood Pressure [90-138/55-84 mm Hg] 122/79mm Hg (04/12/20 8:23 AM) 122/79mm Hg (04/12/20 8:23 AM) 122/79mm Hg (04/12/20 8:23 AM) Respiratory Rate [16-30 br/min] 18 br/min (04/12/20 8:00 AM) 18 br/min (04/12/20 5:37 AM) 19 br/min (04/12/20 5:11 AM) Temperature [96.8-100.4 DegF] 98.0 DegF (04/12/20 8:00 AM) 98 DegF (04/12/20 5:37 AM) 97.9 DegF (04/11/20 11:59 PM) Mode of Delivery (Oxygen) Nasal cannula (04/12/20 8:00 AM) Room air (04/12/20 5:37 AM) Room air (04/11/20 11:59 PM) Blood pressure sites Arm, right (04/12/20 8:00 AM) Arm, right (04/12/20 5:37 AM) Arm, right (04/11/20 11:59 PM) Temperature Route Oral (04/12/20 8:00 AM) Oral (04/12/20 5:37 AM) Oral (04/11/20 11:59 PM) Dry Weight 103 kg (04/11/20 6:30 AM) Social History Social History Type Response Smoking Status Never smoker entered on: 04/28/18 Sex
--- OUTSIDE RECORDS SUMMARY | 2022-11-14 10:52 | XMS_ITS | Continuity of Care Document ---
Author Name Unknown Organization [facility] Address [address] [place] [address]- Care Team Providers Care Clinical Assessment Manager Name Role Phone Sindy Flako LANDRY Primary Care Physician [phone] [place] [facility] [place] 08/19/19 [facility] [address] [place] [address]- [facility] Attending Physician: Cachorro Nielsen MD Admitting Physician: [...] Start Date: 07/13/19 Status: Ordered Vitamin D 69484 iu oral capsule 50,000 International_Units, 1, capsule, By Mouth, Daily, Refills 0, Maintenance, 04/01/19 16:15:52 EDT Start Date: 04/01/19 Status: Ordered Social History Social History Type Response Smoking Status Never smoker entered on: 04/28/18 Sex
--- OUTSIDE RECORDS SUMMARY | 2022-11-14 10:52 | XMS_ITS | Continuity of Care Document ---
Author Name Unknown Organization [facility] Address [address] [place] [address]- Care Team Providers Care Photonics Engineering Technician Name Role Phone Flako Callahan DO Primary Care Physician Encounter [facility] Date(s): 11/29/20 - 12/30/20 [facility] [address] [address] [phone] Attending Physician: Luis A Roland NP Admitting [...] 12/21/20 10:03:00 EDT, Route to Pharmacy Electronically, [facility], Partial fill upon patient [...] 0 Refills, Maintenance, 11/09/20 8:47:00 EDT, [facility]/pharmacy #[id number], Partial fill upon patient request if [...] 9:51:00 EDT, Route to Pharmacy Electronically, [facility]/pharmacy #[id number], 183, cm, 04/12/20 8:00:00EDT, Height, 103, kg, 04/11/20 6:30:00 EDT, Dry Weight Start Date: 04/12/20 Stop Date: 08/10/20 Status: Ordered gabapentin 100 mg oral capsule 100 mg, 1, capsule, By Mouth, 3 times a day, # 90 capsule, Refills 2, Tot. Refills 2, Maintenance, 12/21/20 10:03:00 EDT, Route to Pharmacy Electronically, [facility], Partial fill uponpatient request [...] capsule, 2 Refills, Maintenance, 12/21/20 10:03:00EDT, Capsule, [facility], Partial fill upon patient request if [...] Maintenance, 03/08/20 19:56:00 EDT, DIS Tablet, [facility]/pharmacy #[id number], 183, cm, 03/08/20 16:59:00 EDT, Height, [...]
--- OUTSIDE RECORDS SUMMARY | 2022-11-14 10:52 | XMS_ITS | Continuity of Care Document ---
Author Name Unknown Organization [facility] Address [address] [place] [address]- Care Team Providers Care Psychologist Personnel Name Role Phone Flako Callahan DO Primary Care Physician Encounter [facility] Date(s): 01/16/21 - 02/17/21 [facility] [address] [facility] [address] [place] [id number] [phone] Attending Physician: Luis A Roland NP Admitting [...] Unknown, 0 Refills, Maintenance, 11/09/20 8:47:00 EDT, [facility]/pharmacy #[id number], Partial fill upon patient request if [...] 04/12/20 9:51:00 EDT, Route to Pharmacy Electronically, [facility]/pharmacy #[id number], 183, cm, 04/12/20 8:00:00EDT, Height, 103, [...] capsule, 2 Refills, Maintenance, 12/21/20 10:03:00EDT, Capsule, [facility], Partial fill upon [...] Refills, Maintenance, 03/08/20 19:56:00 EDT, DIS Tablet, [facility]/pharmacy #[id number], 183, cm, 03/08/20 16:59:00 EDT, Height, [...]
--- OUTSIDE RECORDS SUMMARY | 2022-11-14 10:52 | XMS_ITS | Continuity of Care Document ---
Author Name Unknown Organization [facility] Address [address] [place] [address]- Care Team Providers Care Legal Biller Name Role Phone Sindy Flako LANDRY Primary Care Physician Encounter [facility] [place] Date(s): 12/25/20 - 12/25/[address] [address]- Discharge Disposition: A-D/C Home Attending Physician: Dianelys Hicks MD Admitting Physician: Dianelys Hicks MD Referring Physician: Not on Staff, Referring [...] 12/21/20 10:03:00 EDT, Route to Pharmacy Electronically, [facility], Partial fill upon [...] Unknown, 0 Refills, Maintenance, 11/09/20 8:47:00 EDT, [facility]/pharmacy #[id number], Partial fill upon patient request if the prescription is for a scheduleII opioid drug., apply to wound for 15 minutes, 182... Start Date: 11/09/20 Status: Ordered Dilaudid 4 mg oral tablet 1 tablet = 4 mg, By Mouth, Every 4 hours, for 5 days, # 30 tablet, 0 Refills, Acute 12/26/20 10:03:00 EDT, 12/21/20 10:03:00 EDT, Tablet, [facility], Partial fill upon patient request if the prescription is for a schedule II opioid drug.... Start Date: 12/21/20 Stop Date: 12/26/20 Status: Ordered Dilaudid Inj 1 mg, Injection, IV Push Slowly, Every 15 minutes for 3 doses/times, PRN for Pain , Moderate, and SBP greater than 100, STAT, 12/25/20 14:19:00 EDT, Stop date Limited # of times Start Date: 12/25/20 Stop Date: 12/25/20 Status: Completed febuxostat 40 mg oral tablet [...] 04/12/20 9:51:00 EDT, Route to Pharmacy Electronically, [facility]/pharmacy #[id number], 183, cm, 04/12/20 8:00:00EDT, Height, 103, kg, 04/11/20 6:30:00 EDT, Dry Weight Start Date: 04/12/20 Stop Date: 08/10/20 Status: Ordered gabapentin 100 mg oral capsule 100 mg, 1, capsule, By Mouth, 3 times a day, # 90 capsule, Refills 2, Tot. Refills 2, Maintenance, 12/21/20 10:03:00 EDT, Route to Pharmacy Electronically, [facility], Partial fill uponpatient request [...] Refills, Maintenance, 03/08/20 19:56:00 EDT, DIS Tablet, [facility]/pharmacy #[id number], 183, cm, 03/08/20 16:59:00 EDT, Height, 108, kg, 03/08/20 16:59:00 EDT, Dry Weight Start Date: 03/08/20 Stop Date: 03/11/20 Status: Ordered oxyCODONE 5 mg oral tablet 5 mg, 1, tablet, By Mouth, Every 6 hours, PRN, for 2 days, # 7 tablet, Refills 0, Tot. Refills 0, Acute 12/27/20 18:13:00 EDT, for pain, 12/25/20 18:13:00 EDT, Route to Pharmacy Electronically, [facility]/pharmacy #[id number], Partial fill upon patient request if... Start Date: 12/25/20 Stop Date: 12/27/20 Status: Ordered probenecid 500 mg oral tablet [...] foot ulcer(Confirmed) Active Peripheral neuropathy(Confirmed) Active Results Radiology Reports * Exam Date Time Procedure Performing Provider Status 12/25/20 5:08 PM Shoulder Min 2 Views Left Pascual Fan L; Auth (Verified) Notes: (Shoulder Min 2 Views Left) Reason For Exam: with Pain;Trauma RESULT: Shoulder Min 2 Views Left Shoulder Min 2 Views Left Hx of Present Illness: Severe left shoulder pain following a mechanical fall earlier this afternoon, having severe left shoulder pain. Obvious deformity, CMS+, pulses present; Reason: Trauma; with Pain; Clinical Question(s): Fracture COMPARISON: 12/25/2020 FINDINGS: Reduction of previously demonstrated left shoulder dislocation. No fracture fragment identified. Mild degenerative changes at the glenohumeral joint. Moderate degenerative changes of the acromioclavicular joint. The clavicle is intact. No abnormality in the chest. No soft tissue swelling. IMPRESSION: Reduction of previously demonstrated left shoulder dislocation. No fracture identified. WSN: [id number] Ordering Physician: Celso Ledesma Dictated By: Harris Davis DO Dictated Date/Time: 12/25/20 5:13 pm Reviewed By: Harris Davis DO Signed By: Harris Davis DO Signed Date/Time: 12/25/20 5:13 pm Transcribed By: GUILHERME Transcribed Date/Time: 12/25/20 5:11 pm * Exam Date Time Procedure Performing Provider Status 12/25/20 3:14 PM Humerus Min 2 Views Left Christina Coulter e; Auth (Verified) Notes: (Humerus Min 2 Views Left) Reason For Exam: Trauma;with Pain, Today mechanical fall RESULT: Humerus Min 2 Views Left Humerus Min 2 Views Left CLINICAL INDICATION: Hx of Present Illness: Severe left shoulder pain following a mechanical fall earlier this afternoon, having severe left shoulder pain. Obvious deformity, CMS+, pulses present; Reason: Trauma; with Pain, Today mechanical fall; Clinical Question(s): Fracture COMPARISONS: None TECHNIQUE: 2 views of the left humerus. FINDINGS: There is anteromedial dislocation of the left humerus at the shoulder joint. There is no acromioclavicular joint widening. No periarticular calcifications. Prominent degenerative changes are noted at the AC joint. No distal humeral fracture or elbow dislocation. IMPRESSION: Anteromedial left shoulder dislocation. No distal humeral fracture. A Morris message has been communicated via the [employer] system on 12/25/2020 3:20 PM, Message ID [id number]. WSN: [id number] Ordering Physician: Dianelys Hicks Dictated By: Gm Wise MD Dictated Date/Time: 12/25/20 3:21 pm Reviewed By: Gm Wise MD Signed By: Gm Wise MD Signed Date/Time: 12/25/20 3:21 pm Transcribed By: GUILHERME Transcribed Date/Time: 12/25/20 3:20 pm * Exam Date Time Procedure Performing Provider Status 12/25/20 3:14 PM Shoulder Min 2 Views Left Ketty Coulter ie; Auth (Verified) Notes: (Shoulder Min 2 Views Left) Reason For Exam: Trauma;with Pain, Today mechanical fall, deformity RESULT: Shoulder Min 2 Views Left Shoulder Min 2 Views Left CLINICAL INDICATION: Hx of Present Illness: Severe left shoulder pain following a mechanical fall earlier this afternoon, having severe left shoulder pain. Obvious deformity, CMS+, pulses present; Reason: Trauma; with Pain, Today mechanical fall, deformity; Clinical Question(s): Fracture; Order Comment: Pt getting meds now. Nurse sdvised will repage when ready for xray. bc 2:14 COMPARISONS: None TECHNIQUE: 2 views of the left shoulder. FINDINGS: There is anteromedial dislocation of the left humerus at the shoulder joint. There is no acromioclavicular joint widening. No periarticular calcifications. Prominent degenerative changes are noted at the AC joint. IMPRESSION: Anteromedial left shoulder dislocation. A Morris message has been communicated via the [employer] system on 12/25/2020 3:20 PM, Message ID [id number]. WSN: [id number] Ordering Physician: Dianelys Hicks Dictated By: Gm Wise MD Dictated Date/Time: 12/25/20 3:20 pm Reviewed By: Gm Wise MD Signed By: Gm Wise MD Signed Date/Time: 12/25/20 3:20 pm Transcribed By: GUILHERME Transcribed Date/Time: 12/25/20 3:18 pm Vital Signs Most recent to oldest [Reference Range]: 1 2 3 Height 183 cm (12/25/20 6:54 PM) 183 cm (12/25/20 2:20 PM) Weight 98 kg (12/25/20 6:54 PM) 98 kg (12/25/20 2:20 PM) Oxygen Saturation [94-100 %] 98 % (12/25/20 6:54 PM) 98 % (12/25/20 5:00 PM) 98 % (12/25/20 4:30 PM) Pulse Rate [55-90 bpm] 82 bpm (12/25/20 6:54 PM) 75 bpm (12/25/20 5:00 PM) 75 bpm (12/25/20 4:30 PM) Body Mass Index [18.5-24.99] 29.26 *H* (12/25/20 6:54 PM) Blood Pressure [90-138/55-84 mm Hg] 115/103mm Hg (12/25/20 6:54 PM) 135/94mm Hg (12/25/20 5:00 PM) 129/89mm Hg (12/25/20 4:30 PM) Respiratory Rate [16-30 br/min] 16 br/min (12/25/20 6:54 PM) 16 br/min (12/25/20 5:37 PM) 16 br/min (12/25/20 5:00 PM) Temperature [96.8-100.4 DegF] 97.2 DegF (12/25/20 6:54 PM) 97.7 DegF (12/25/20 2:20 PM) Mode of Delivery (Oxygen) Room air (12/25/20 6:54 PM) Room air (12/25/20 5:00 PM) Room air (12/25/20 4:30 PM) Blood pressure sites Arm, right (12/25/20 6:54 PM) Arm, left (12/25/20 2:20 PM) Temperature Route Oral (12/25/20 6:54 PM) Oral (12/25/20 4:30 PM) Oral (12/25/20 2:20 PM) Dry Weight 98 kg (12/25/20 6:54 PM) 98 kg (12/25/20 2:20 PM) Social History Social History Type Response Smoking Status Never smoker entered on: 04/28/18 Sex
--- OUTSIDE RECORDS SUMMARY | 2022-11-14 10:52 | XMS_ITS | Continuity of Care Document ---
Author Name Unknown Organization [facility] Address [address] [place] [address]- Care Team Providers Care Unit Clerk Name Role Phone Flako Callahan DO Primary Care Physician [phone] Encounter [facility] Date(s): 03/20/21 - 03/27/21 [facility] [address] [place] [address]- Attending Physician: Davin Banegas MD Admitting Physician: [...] Unknown, 0 Refills, Maintenance, 11/09/20 8:47:00 EDT, [facility]/pharmacy #[id number], Partial fill upon patient request [...] 04/12/20 9:51:00 EDT, Route to Pharmacy Electronically, [facility]/pharmacy #[id number], 183, cm, 04/12/20 8:00:00EDT, Height, [...] 2 Refills, Maintenance, 12/21/20 10:03:00EDT, Capsule, [facility], Partial fill upon patient [...] Refills, Maintenance, 03/08/20 19:56:00 EDT, DIS Tablet, [facility]/pharmacy #[id number], 183, cm, 03/08/20 16:59:00 EDT, [...] oldest [Reference Range]: 1 Height 183 cm (03/20/21 1:33 PM) Weight 94 kg (03/20/21 1:33 PM) Oxygen Saturation [94-100 %] 98 % (03/20/21 1:33 PM) Pulse Rate [55-90 bpm] 86 bpm (03/20/21 1:33 PM) Body Mass Index [18.5-24.99] 28.07 *H* (03/20/21 1:33 PM) Blood Pressure [90-138/55-84 mm Hg] 120/ 72mm Hg (03/20/21 1:33 PM) Mode of Delivery (Oxygen) Room air (03/20/21 1:33 PM) Blood pressure sites Arm, left (03/20/21 1:33 PM) Weight Obtained Via Patient/family state d (03/20/21 1:33 PM) Social History Social History Type Response Tobacco Other: none. Sex
--- OUTSIDE RECORDS SUMMARY | 2022-11-14 10:52 | XMS_ITS | Continuity of Care Document ---
Author Name Unknown Organization [facility] Address [address] [place] [address]- Care Team Providers Care Cardiovascular Or Nurse Name Role Phone Flako Callahan DO Primary Care Physician [phone] Encounter [facility] Date(s): 08/02/20 - 09/05/20 [facility] [address], [place] [address] Attending Physician: Cachorro Nielsen MD Admitting Physician: [...] 0:20:00 EDT, Route to Pharmacy Electronically, [facility]/pharmacy #[id number] Tablet, Partial fill upon patient [...] 9:51:00 EDT, Route to Pharmacy Electronically, [facility]/pharmacy #[id number], 183, cm, 04/12/20 [...] 1 Refills, Maintenance, 04/20/20 16:24:00 EDT, [facility]/pharmacy #[id number], 183, cm, 04/17/20 14:57:00 EDT, [...] Maintenance, 03/08/20 19:56:00 EDT, DIS Tablet, [facility]/pharmacy #[id number], 183, cm, 03/08/20 16:59:00 EDT, Height, 108, kg, 03/08/20 16:59:00 EDT, Dry Weight Start Date: 03/08/20 Stop Date: 03/11/20 Status: Ordered oxyCODONE 5 mg oral tablet 5 mg, 1, tablet, By Mouth, Every 6 hours, PRN, # 10 tablet, Refills 0, Tot. Refills 0, Maintenance,Pain , Severe, 09/14/19 11:11:00 EST, Route to Pharmacy Electronically, [facility]/pharmacy #[id number], Partialfill upon patient request, 183, cm, 09/14/19 9:28:0... Start Date: 09/14/19 Status: Ordered Vitamin C 1000 mg oral tablet 1 tablet = 1,000 mg, By Mouth, Daily, # 30 tablet, 0 Refills, Maintenance, 07/13/19 8:13:25 EST, Tablet Start Date: 07/13/19 Status: Ordered Vitamin D 55501 iu oral capsule 50,000 International_Units, 1, capsule, By Mouth, Every week, Refills 0, Maintenance, 04/01/19 16:15:52 EDT Start Date: 04/01/19 Status: Ordered Problem List Condition Effective Dates Status Health Status Inform ant Afib(Confirmed) Active Atrial flutter(Confirmed) Active Social History Social History Type Response Smoking Status Never smoker entered on: 04/28/18 Sex
--- OUTSIDE RECORDS SUMMARY | 2022-11-14 10:52 | XMS_ITS | Continuity of Care Document ---
Author Name Unknown Organization [facility] Address [address] [place] [address]- Care Team Providers Care Commodity Trader Name Role Phone Flako Callahan DO Primary Care Physician [phone] Encounter [facility] [place] Date(s): 09/14/19 - 09/14/[address] [address] [phone] Discharge Disposition: A-D/C Home Attending Physician: Jennifer Hurley MD Admitting Physician: Jennifer Hurley MD Referring Physician: Not on Staff, Referring [...] 2:01:18 EST Start Date: 09/08/18 Status: Ordered ibuprofen 600 mg oral tablet 600 mg, 1, tablet, By Mouth, Every 6 hours, PRN, # 30 tablet, Refills 0, Tot. Refills 0, Maintenance, pain, 09/14/19 11:10:00 EST, Route to Pharmacy Electronically, [facility]/pharmacy #[id number], 183, cm, 09/14/19 9:28:00 EST, Height, 97.8, kg, 09/14/19 9:28:00... Start Date: 09/14/19 Status: Ordered Levaquin 500 mg oral tablet 1 tablet = 500 mg, By Mouth, Every 24 hours, for 10 days, # 10 tablet, 0 Refills, Acute 09/24/19 11:10:00 EST, 09/14/19 11:10:00 EST, Tablet, [facility]/pharmacy #[id number], 183, cm, 09/14/19 9:28:00 EST, Height, 97.8, kg, 09/14/19 9:28:00 EST, Dry Weight Start Date: 09/14/19 Stop Date: 09/24/19 Status: Ordered lisinopril 10 mg oral tablet 10 mg, 1, tablet, By Mouth, Daily, # 30 tablet, Refills 0, Maintenance, 01/24/19 19:05:05 EDT Start Date: 01/24/19 Status: Ordered meloxicam 15 mg oral tablet 1 tablet = 15 mg, By Mouth, Daily, # 30 tablet, 1 Refills, Maintenance, 09/14/19 13:06:00 EST, Tablet, [facility]/pharmacy #[id number], 183, cm, 09/14/19 9:28:00 EST, Height, 97.8, kg, 09/14/19 9:28:00 EST, Dry Weight Start Date: 09/14/19 Status: Ordered metoprolol succinate 25 mg oral capsule, extended release 1 capsule = 25 mg, By Mouth, Daily, # 30 capsule, 0 Refills, Maintenance, 08/29/19 16:21:00 EST, ERCapsule Start Date: 08/29/19 Status: Ordered Multivitamin 1, Daily, 0 Refills, [...] 09/14/19 11:11:00 EST, Route to Pharmacy Electronically, [facility]/pharmacy #[id number], Partialfill upon patient request, 183, cm, 09/14/19 9:28:0... Start Date: 09/14/19 Status: Ordered Tylenol 325 mg oral tablet 650 mg, By Mouth, Every 4 hours, PRN, Refills 0, Maintenance, Pain , Mild, 04/06/19 10:26:07 EDT Start Date: 04/06/19 Status: Ordered Vitamin C 1000 mg oral tablet 1 tablet = 1,000 mg, By Mouth, Daily, # 30 tablet, 0 Refills, Maintenance, 07/13/19 8:13:25 EST, Tablet Start Date: 07/13/19 Status: Ordered Vitamin D 60306 iu oral capsule 50,000 International_Units, 1, capsule, By Mouth, Daily, Refills 0, Maintenance, 04/01/19 16:15:52 EDT Start Date: 04/01/19 Status: Ordered Xarelto 20 mg oral tablet 1 tablet = 20 mg, By Mouth, Daily before dinner, 0 Refills, Maintenance, 09/07/19 8:14:00 EST Start Date: 09/07/19 Status: Ordered Vital Signs Most recent to oldest [Reference Range]: 1 2 3 Height 183 cm (09/14/19 9:28 AM) 183 cm (09/14/19 9:11 AM) Weight 97.8 kg (09/14/19 9:28 AM) 97.8 kg (09/14/19 9:11 AM) Oxygen Saturation [94-100 %] 98 % (09/14/19 11:32 AM) 100 % (09/14/19 9:11 AM) Pulse Rate [55-90 bpm] 98 bpm *H* (09/14/19 11:32 AM) 95 bpm *H* (09/14/19 9:11 AM) Body Mass Index [18.5-24.99] 29.2 *H* (09/14/19 9:11 AM) Blood Pressure [90-138/55-84 mm Hg] 110/76mm Hg (09/14/19 11:32 AM) 152/94mm Hg *H* (09/14/19 9:11 AM) Respiratory Rate [16-30 br/min] 18 br/min (09/14/19 11:32 AM) 18 br/min (09/14/19 10:26 AM) 18 br/min (09/14/19 10:25 AM) Temperature [96.8-100.4 DegF] 97.9 DegF (09/14/19 11:32 AM) 97.2 DegF (09/14/19 9:11 AM) Mode of Delivery (Oxygen) Room air (09/14/19 11:32 AM) Room air (09/14/19 9:11 AM) Blood pressure sites Arm, right (09/14/19 11:32 AM) Arm, right (09/14/19 9:11 AM) Temperature Route Oral (09/14/19 11:32 AM) Oral (09/14/19 9:11 AM) Dry Weight 97.8 kg (09/14/19 9:28 AM) Weight Obtained Via Patient/family state d (09/14/19 9:11 AM) Social History Social History Type Response Smoking Status Never smoker entered on: 04/28/18 Sex
--- OUTSIDE RECORDS SUMMARY | 2022-11-14 10:52 | XMS_ITS | Continuity of Care Document ---
Author Name Unknown Organization [facility] Address [address] [place] [address]- Care Team Providers Care Supervisor Abattoir Name Role Phone Flako Callahan DO Primary Care Physician [place] [facility] 04/14/20 - 04/14/[address] [address] [place] [phone] Encounter Diagnosis Palpitations(Final) - 04/14/20 Discharge Disposition: A-D/C Home Attending Physician: Codey [...] 03/25/20 0:20:00 EDT, Route to Pharmacy Electronically, [facility]/pharmacy #[id number] Tablet, Partial fill upon [...] 04/12/20 9:51:00 EDT, Route to Pharmacy Electronically, [facility]/pharmacy #[id number], 183, cm, 04/12/20 8:00:00EDT, [...] Refills, Maintenance, 03/08/20 19:56:00 EDT, DIS Tablet, [facility]/pharmacy #[id number], 183, cm, 03/08/20 16:59:00 EDT, Height, 108, kg, 03/08/20 16:59:00 EDT, Dry Weight Start Date: 03/08/20 Stop Date: 03/11/20 Status: Ordered oxyCODONE 5 mg oral tablet 5 mg, 1, tablet, By Mouth, Every 6 hours, PRN, # 10 tablet, Refills 0, Tot. Refills 0, Maintenance,Pain , Severe, 09/14/19 11:11:00 EST, Route to Pharmacy Electronically, [facility]/pharmacy #[id number], Partialfill upon patient request, 183, cm, 09/14/19 9:28:0... Start Date: 09/14/19 Status: Ordered Vitamin C 1000 mg oral tablet 1 tablet = 1,000 mg, By Mouth, Daily, # 30 tablet, 0 Refills, Maintenance, 07/13/19 8:13:25 EST, Tablet Start Date: 07/13/19 Status: Ordered Vitamin D 22185 iu oral capsule 50,000 International_Units, 1, capsule, By Mouth, Every week, Refills 0, Maintenance, 04/01/19 16:15:52 EDT Start Date: 04/01/19 Status: Ordered Problem List Condition Effective Dates Status Health Status Inform ant Afib(Confirmed) Active Atrial flutter(Confirmed) Active Results Radiology Reports * Exam Date Time Procedure Performing Provider Status 04/14/20 4:54 PM Chest 2 Views Frontal and Lat Meron Estrada; Conchita (Verified) Notes: (Chest 2 Views Frontal and Lat) Reason For Exam: Shortness of Breath RESULT: Chest 2 Views Frontal and Lat PA and lateral chest dated April 14, 2020. Comparison films are from March 08, 2020. HISTORY: Status post atrial fibrillation ablation on Thursday. Patient has palpitations. FINDINGS: The cardiac silhouette is within normal limits for size. Hilar and mediastinal structuresare unremarkable. No airspace infiltrate or pleural effusion is identified. Partially imaged is a compression deformity of the superior endplate of L2. A sclerotic focus is present in the coracoid process of the right scapula. IMPRESSION: No evidence of acute pulmonary disease. L2 compression fracture of uncertain chronicity. Bone island in the right scapula. Examination [id number]. Thank you for allowing me to participate in the care of this patient. WSN: [id number] Ordering Physician: Etelvina Deleon Dictated By: Sandip Jacobs MD Dictated Date/Time: 04/14/20 4:58 pm Reviewed By: Sandip Jacobs MD Signed By: Sandip Jacobs MD Signed Date/Time: 04/14/20 4:58 pm Transcribed By: GUILHERME Transcribed Date/Time: 04/14/20 4:57 pm Vital Signs Most recent to oldest [Reference Range]: 1 2 3 Height 183 cm (04/14/20 2:39 PM) Weight 103.5 kg (04/14/20 2:39 PM) Oxygen Saturation [94-100 %] 95 % (04/14/20 8:13 PM) 96 % (04/14/20 5:39 PM) 95 % (04/14/20 2:39 PM) Pulse Rate [55-90 bpm] 81 bpm (04/14/20 8:13 PM) 80 bpm (04/14/20 5:39 PM) 86 bpm (04/14/20 2:39 PM) Blood Pressure [90-138/55-84 mm Hg] 147/104mm Hg *H* (04/14/20 8:13 PM) 125/85mm Hg (04/14/20 5:39 PM) 152/88mm Hg *H* (04/14/20 2:39 PM) Respiratory Rate [16-30 br/min] 15 br/min *L* (04/14/20 8:13 PM) 19 br/min (04/14/20 5:39 PM) 20 br/min (04/14/20 2:39 PM) Temperature [96.8-100.4 DegF] 97.9 DegF (04/14/20 8:13 PM) 98.9 DegF (04/14/20 2:39 PM) Mode of Delivery (Oxygen) Room air (04/14/20 8:13 PM) Room air (04/14/20 5:39 PM) Room air (04/14/20 2:39 PM) Blood pressure sites Arm, right (04/14/20 2:39 PM) Temperature Route Oral (04/14/20 8:13 PM) Oral (04/14/20 2:39 PM) Dry Weight 103.5 kg (04/14/20 2:39 PM) Dry Weight Obtained Via Patient/family s tated (04/14/20 2:39 PM) Social History Social History Type Response Smoking Status Never smoker entered on: 04/28/18 Sex
--- OUTSIDE RECORDS SUMMARY | 2022-11-14 10:53 | XMS_ITS | Continuity of Care Document ---
Author Name Unknown Organization [facility] Address [address] [place] [address]- Care Team Providers Care Tape Folding Machine Operator Name Role Phone Enrico Flako LANDRY Primary Care Physician [phone] Encounter [facility] [place] Date(s): 01/07/21 - 02/06/21 [facility] [address] [place] [address]- Attending Physician: Lion Vann Admitting Physician: Lion [...] capsule, 2 Refills, Maintenance, 12/21/20 10:03:00EDT, Capsule, [facility], Partial fill upon patient [...]
--- OUTSIDE RECORDS SUMMARY | 2022-11-14 10:53 | XMS_ITS | Continuity of Care Document ---
Author Name Unknown Organization [facility] Address [address] [place] [address]- Care Team Providers Care Irrigation Foreman Name Role Phone Flako Callahan DO Primary Care Physician [phone] [place] [facility] [place] - 09/17/[address] [address] [phone] Discharge Disposition: A-D/C Home Attending Physician: Yossi Byrne MD Admitting Physician: Yossi Byrne MD Referring Physician: Not on Staff, Referring [...] Maintenance, :17:00 EST, Route to Pharmacy Electronically, [facility]/pharmacy #[id number], 183, cm, 09/17/19 7:23:00 EST, Height, 99.4, kg, 09/16/19 12:50:00 EST, Dry Weight Start Date: 09/17/19 Status: Ordered Flax Seed Oil oral capsule 1 capsule, By Mouth, Daily, 0 Refills, Maintenance, 04/01/19 16:16:13 EDT Start Date: 04/01/19 Status: Ordered Humalog Cartridge Subcutaneous Infusion, 0 Refills, Maintenance, 09/08/18 2:01:18 EST Start Date: 09/08/18 Status: Ordered Levaquin 500 mg oral tablet 1 tablet = 500 mg, By Mouth, Every 24 hours, for 10 days, # 10 tablet, 0 Refills, Acute 09/24/19 11:10:00 EST, 09/14/19 11:10:00 EST, Tablet, [facility]/pharmacy #[id number], 183, cm, 09/14/19 9:28:00 EST, Height, 97.8, kg, 09/14/19 9:28:00 EST, Dry Weight Start Date: 09/14/19 Stop Date: 09/24/19 Status: Ordered meloxicam 15 mg oral tablet 1 tablet = 15 mg, By Mouth, Daily, # 30 tablet, 1 Refills, Maintenance, 09/14/19 13:06:00 EST, Tablet, [facility]/pharmacy #[id number], 183, cm, 09/14/19 9:28:00 EST, Height, [...] EST, Route to Pharmacy Electronically, [facility]/pharmacy #[id number], Partialfill upon patient request, 183, cm, 09/14/19 9:28:0... Start Date: 09/14/19 Status: Ordered Vitamin C 1000 mg oral tablet 1 tablet = 1,000 mg, By Mouth, Daily, # 30 tablet, 0 Refills, Maintenance, 07/13/19 8:13:25 EST, Tablet Start Date: 07/13/19 Status: Ordered Vitamin D 35171 iu oral capsule 50,000 International_Units, 1, capsule, By Mouth, Every week, Refills 0, Maintenance, 04/01/19 16:15:52 EDT Start Date: 04/01/19 Status: Ordered Xarelto 20 mg oral tablet 1 tablet = 20 mg, By Mouth, Daily before dinner, 0 Refills, Maintenance, 09/07/19 8:14:00 EST Start Date: 09/07/19 Status: Ordered Results Radiology Reports * Exam Date Time Procedure Performing Provider Status 09/16/19 8:31 AM Chest 2 Views Frontal and Lat Palascia no , Reyes; Auth (Verified) Notes: (Chest 2 Views Frontal and Lat) Reason For Exam: Shortness of Breath, Fever;Other: RESULT: Chest 2 Views Frontal and Lat Chest 2 Views Frontal and Lat INDICATION: Sudden onset chest pain. COMPARISON: Multiple priors, most recent 07/06/2019. FINDINGS: LINES AND TUBES: None. LUNGS AND PLEURA: Low lung volumes with mild basilar atelectasis. Lungs are otherwise clear with no consolidation. No pleural effusion. No pneumothorax. HEART, MEDIASTINUM AND PRESTON: Heart is normal in size. Normal mediastinal and hilar contour. BONES AND SOFT TISSUES: No acute abnormality. IMPRESSION: No acute abnormality. I have personally reviewed the images and I agree with this report. WSN: [id number] Dictated By: Zachary Rosario MD Dictated Date/Time: 09/16/19 8:44 am Reviewed By: King Warren MD Signed By: King Warren MD Signed Date/Time: 09/16/19 8:49 am Transcribed By: GUILHERME Transcribed Date/Time: 09/16/19 8:41 am Vital Signs Most recent to oldest [Reference Range]: 1 2 3 Height 183 cm (09/17/19 7:07 AM) 183 cm (09/17/19 3:42 AM) 183 cm (09/17/19 12:10 AM) Weight 99.4 kg (09/16/19 11:50 AM) 99.4 kg (09/16/19 11:36 AM) 97.5 kg (09/16/19 10:00 AM) Oxygen Saturation [94-100 %] 100 % (09/17/19 7:07 AM) 97 % (09/17/19 3:42 AM) 96 % (09/17/19 12:10 AM) Pulse Rate [55-90 bpm] 82 bpm (09/17/19 8:50 AM) 82 bpm (09/17/19 7:07 AM) 83 bpm (09/17/19 4:02 AM) Body Mass Index [18.5-24.99] 29.68 *H* (09/16/19 11:50 AM) 29.68 *H* (09/16/19 11:36 AM) 29.11 *H* (09/16/19 10:00 AM) Blood Pressure [90-138/55-84 mm Hg] 126/75mm Hg (09/17/19 8:50 AM) 126/75mm Hg (09/17/19 7:07 AM) 119/62mm Hg (09/17/19 4:02 AM) Respiratory Rate [16-30 br/min] 18 br/min (09/17/19 7:07 AM) 18 br/min (09/17/19 3:42 AM) 18 br/min (09/17/19 12:10 AM) Temperature [96.8-100.4 DegF] 98.0 DegF (09/17/19 7:07 AM) 97.9 DegF (09/17/19 3:42 AM) 98.1 DegF (09/17/19 12:10 AM) Liters per Minute 0 L/min (09/16/19 8:05 PM) 0 L/min (09/16/19 4:21 PM) Mode of Delivery (Oxygen) Room air (09/17/19 7:07 AM) Room air (09/17/19 3:42 AM) Room air (09/17/19 12:10 AM) Blood pressure sites Arm, right (09/17/19 7:07 AM) Arm, right (09/17/19 3:42 AM) Arm, right (09/17/19 12:10 AM) Temperature Route Oral (09/17/19 7:07 AM) Oral (09/17/19 3:42 AM) Oral (09/17/19 12:10 AM) Dry Weight 99.4 kg (09/16/19 11:50 AM) 97.5 kg (09/16/19 10:00 AM) 97.5 kg (09/16/19 9:34 AM) Weight Obtained Via Bed scale (09/16/19 11:50 AM) Bed scale (09/16/19 11:36 AM) Patient/family stated (09/16/19 7:55 AM) Dry Weight Obtained Via Patient/family s tated (09/16/19 11:50 AM) Patient/family stated (09/16/19 7:55 AM) Sensory deficits Other: reading glass es (09/16/19 12:04 PM) Mobility assistance Independent (09/16/19 12:04 PM) Social History Social History Type Response Smoking Status Never smoker entered on: 04/28/18 Sex
--- OUTSIDE RECORDS SUMMARY | 2022-11-14 10:53 | XMS_ITS | Continuity of Care Document ---
Author Name Unknown Organization [facility] Address [address] [place] [address]- Care Team Providers Care Cook Fish Eggs Name Role Phone Flako Callahan DO Primary Care Physician [phone] Encounter [facility] [place] [place] Date(s): 05/30/21 - 06/30/21 [facility] [address] [facility] [address] [place] [address] [phone] Attending Physician: Navid Rudd MD Admitting Physician: Navid Rudd MD Referring Physician: Flako Callahan DO Allergies, [...] 0 Refills, Maintenance, 11/09/20 8:47:00 EDT, [facility]/pharmacy #[id number], Partial fill upon patient [...] EDT, Route to Pharmacy Electronically, [facility]/pharmacy #[id number], 183, cm, 04/12/20 8:00:00EDT, [...] 2 Refills, Maintenance, 12/21/20 10:03:00EDT, Capsule, [facility], Partial fill upon patient request [...] 03/08/20 19:56:00 EDT, DIS Tablet, [facility]/pharmacy #[id number], 183, cm, 03/08/20 16:59:00 [...]
--- OUTSIDE RECORDS SUMMARY | 2022-11-14 10:53 | XMS_ITS | Continuity of Care Document ---
Author Name Unknown Organization [facility] Address [address] [place] [address]- Care Team Providers Care Registered Nurse Ambulatory Name Role Phone Flako Callahan DO Primary Care Physician Encounter [facility] [place] Date(s): 06/10/19 - 08/18/19 [facility] [address] [place] [address] Attending Physician: Jennifer Grossman MD Referring Physician: Flako Callahan DO Allergies, [...] Start Date: 07/13/19 Status: Ordered Vitamin D 97833 iu oral capsule 50,000 International_Units, 1, capsule, By Mouth, Daily, Refills 0, Maintenance, 04/01/19 16:15:52 EDT Start Date: 04/01/19 Status: Ordered Social History Social History Type Response Smoking Status Never smoker entered on: 04/28/18 Sex
--- OUTSIDE RECORDS SUMMARY | 2022-11-14 10:53 | XMS_ITS | Continuity of Care Document ---
Author Name Unknown Organization [facility] Address [address] [place] [address]- Care Team Providers Care Blocker Metal Base Name Role Phone Flako Callahan DO Primary Care Physician [place] [facility] [place] 08/11/19 [facility] [place] [facility] [address] [place], [place] [address] Attending Physician: Luis A Roland NP Admitting [...] Start Date: 07/13/19 Status: Ordered Vitamin D 55687 iu oral capsule 50,000 International_Units, 1, capsule, By Mouth, Daily, Refills 0, Maintenance, 04/01/19 16:15:52 EDT Start Date: 04/01/19 Status: Ordered Social History Social History Type Response Smoking Status Never smoker entered on: 04/28/18 Sex
--- OUTSIDE RECORDS SUMMARY | 2022-11-14 10:53 | XMS_ITS | Continuity of Care Document ---
Author Name Unknown Organization [facility] Address [address] [place] [address]- Care Team Providers Care Carpenter Name Role Phone Sindy Flako LANDRY Primary Care Physician [phone] Encounter [facility] [place] Date(s): 12/31/20 - 01/31/21 [facility] [address] [facility] [address] [place] [address] [phone] Attending Physician: Cachorro Nielsen MD Admitting Physician: [...] capsule, 2 Refills, Maintenance, 12/21/20 10:03:00EDT, Capsule, [facility], Partial fill upon patient [...]
--- OUTSIDE RECORDS SUMMARY | 2022-11-14 10:53 | XMS_ITS | Continuity of Care Document ---
Author Name Unknown Organization [facility] Address [address] [place] [address]- Care Team Providers Care Fire Battalion Chief Name Role Phone Flako Callahan DO Primary Care Physician [place] [facility] [place] 10[place]11[place]20 - 11/14/20 [facility] [address] [place] [address]- Attending Physician: Cachorro Nielsen MD Admitting Physician: [...] Unknown, 0 Refills, Maintenance, 11/09/20 8:47:00 EDT, [facility]/pharmacy #[id number], Partial fill upon [...] 04/12/20 9:51:00 EDT, Route to Pharmacy Electronically, [facility]/pharmacy #[id number], 183, cm, 04/12/20 [...] 11/23/20 8:48:00 EDT, 11/09/20 8:48:00 EDT, Capsule, [facility]/pharmacy #[id number], Partial fill upon [...] Refills, Maintenance, 03/08/20 19:56:00 EDT, DIS Tablet, [facility]/pharmacy #[id number], 183, cm, 03/08/20 [...]
--- OUTSIDE RECORDS SUMMARY | 2022-11-14 10:53 | XMS_ITS | Continuity of Care Document ---
Author Name Unknown Organization [facility] Address [address] [place] [address]- Care Team Providers Care Pelts Skinner Name Role Phone Flako Callahan DO Primary Care Physician En[place] [facility] [place] Date(s[place] 06/07/21 - 07/10/21 [facility] [address] [facility] [address] [place] [address]- [phone] Attending Physician: Cachorro Nielsen MD Admitting Physician: [...] Unknown, 0 Refills, Maintenance, 11/09/20 8:47:00 EDT, [facility]/pharmacy #[id number], Partial fill upon patient request [...] 04/12/20 9:51:00 EDT, Route to Pharmacy Electronically, [facility]/pharmacy #[id number], 183, cm, 04/12/20 8:00:00EDT, Height, [...] capsule, 2 Refills, Maintenance, 12/21/20 10:03:00EDT, Capsule, [facility], Partial fill upon patient [...] Refills, Maintenance, 03/08/20 19:56:00 EDT, DIS Tablet, [facility]/pharmacy #[id number], 183, cm, 03/08/20 16:59:00 EDT, [...]
--- OUTSIDE RECORDS SUMMARY | 2022-11-14 10:53 | XMS_ITS | Continuity of Care Document ---
Author Name Unknown Organization [facility] Address [address] [place] [address]- Care Team Providers Care Bass Viol Repairer Name Role Phone Sindy LANDRY Flako Donis Primary Care Physician [place] [facility] [place]s): 05/16/21 - 06/21/21 [facility] [address] [place] [address]- Attending Physician: Davin Banegas MD Admitting Physician: [...]
--- OUTSIDE RECORDS SUMMARY | 2022-11-14 10:53 | XMS_ITS | Continuity of Care Document ---
Author Name Unknown Organization [facility] Address [address] [place] [address]- Care Team Providers Care Scouring Train Operator Name Role Phone Flako Callahan DO Primary Care Physician [place] [facility] [place]21 - 06/21/21 [facility] [place] [address] [place] [address]- Attending Physician: Davin Banegas MD Admitting Physician: [...] capsule, 2 Refills, Maintenance, 12/21/20 10:03:00EDT, Capsule, [facility], Partial fill upon [...]
--- OUTSIDE RECORDS SUMMARY | 2022-11-14 10:53 | XMS_ITS | Continuity of Care Document ---
Author Name Unknown Organization [facility] Address Unknown Care Team Providers Care Chef Concierge Name Role Phone Flako Callahan DO Primary Care Physician En[place] [facility] [place] Date(s): 11/12/20 - 11/19/20 [facility] Attending Physician: Juan Herndon MD Admitting Physician: Juan Herndon MD Allergies, Adverse Reactions, Alerts Substance Reaction [...] 11/23/20 8:48:00 EDT, 11/09/20 8:48:00 EDT, Capsule, [facility]/pharmacy #[id number], Partial fill upon patient request ifthe [...]
--- OUTSIDE RECORDS SUMMARY | 2022-11-14 10:53 | XMS_ITS | Continuity of Care Document ---
Author Name Unknown Organization [facility] Address [address] [place] [address]- Care Team Providers Care Armament Repairer Name Role Phone Flako Callahan DO Primary Care Physician [phone] [place] [facility] [place]): 11/27/20 - 12/28/20 [facility] [address] [address] [phone] Attending Physician: Cachorro Nielsen MD Admitting Physician: [...] 12/21/20 10:03:00 EDT, [facility] fill upon patient request if [...] Refills, Maintenance, 11/09/20 8:47:00 EDT, [facility]/pharmacy #[id number], Partial fill upon patient request if [...] 12/21/20 10:03:00 EDT, Route to Pharmacy Electronically, [facility], Partial fill uponpatient request [...] capsule, 2 Refills, Maintenance, 12/21/20 10:03:00EDT, Capsule, [facility], Partial fill upon patient request [...]
--- OUTSIDE RECORDS SUMMARY | 2022-11-14 10:53 | XMS_ITS | Continuity of Care Document ---
Author Name Unknown Organization [facility] Address [address] [place] [address]- Care Team Providers Care New Account Interviewer Name Role Phone Sindy Flako LANDRY Primary Care Physician [phone] En[place] [facility] [place] Date(s): 01/01/21 - 02/02/21 [facility] [address] [facility] [address] [place] [address] [[email or web address] [phone] Attending Physician: Cachorro Nielsen MD Admitting Physician: [...] capsule, 2 Refills, Maintenance, 12/21/20 10:03:00EDT, Capsule, [facility], Partial fill upon [...]
--- OUTSIDE RECORDS SUMMARY | 2022-11-14 10:53 | XMS_ITS | Continuity of Care Document ---
Author Name Unknown Organization [facility] Address [address] [place] [address]- Care Team Providers Care Pleat Patternmaker Name Role Phone Flako Callahan DO Primary Care Physician [place] [facility] [place](s): 08/20/21 - 09/19/21 [facility] [address] [address] [phone] Attending Physician: Lion Vann Admitting Physician: Lion [...] Unknown, 0 Refills, Maintenance, 11/09/20 8:47:00 EDT, [facility]/pharmacy [facility][id number], Partial fill upon patient request if [...] 04/12/20 9:51:00 EDT, Route to Pharmacy Electronically, [facility]/pharmacy #[id number], 183, cm, 04/12/20 8:00:00EDT, Height, 103, [...] 2 Refills, Maintenance, 12/21/20 10:03:00EDT, Capsule, [facility], Partial fill upon patient request [...] Refills, Maintenance, 03/08/20 19:56:00 EDT, DIS Tablet, [facility]/pharmacy #[id number], 183, cm, 03/08/20 16:59:00 EDT, Height, [...]
--- OUTSIDE RECORDS SUMMARY | 2022-11-14 10:53 | XMS_ITS | Continuity of Care Document ---
Author Name Unknown Organization [facility] [place] [place] [facility] Address [address] [place] [address]- Care Team Providers Care Histopathologist Name Role Phone Ruben Callahan DOmekhi Donis Primary Care Physician [phone] En[place] [facility] [place] Date(s): 08/09/19 - 09/14/19 [facility] [place] [place] [facility] [address] [place] [address]- [facility] Attending Physician: Cachorro Nielsen MD Admitting [...] 09/14/19 11:10:00 EST, Route to Pharmacy Electronically, [facility]/pharmacy #[id number], 183, cm, 09/14/19 9:28:00 EST, Height, 97.8, kg, 09/14/19 9:28:00... Start Date: 09/14/19 Status: Ordered Levaquin 500 mg oral tablet 1 tablet = 500 mg, By Mouth, Every 24 hours, for 10 days, # 10 tablet, 0 Refills, Acute 09/24/19 11:10:00 EST, 09/14/19 11:10:00 EST, Tablet, [facility]/pharmacy #[id number], 183, cm, 09/14/19 9:28:00 [...] 1 Refills, Maintenance, 09/14/19 13:06:00 EST, Tablet, [facility]/pharmacy #[id number], 183, cm, 09/14/19 9:28:00 [...] 09/14/19 11:11:00 EST, Route to Pharmacy Electronically, [facility]/pharmacy #[id number], Partialfill upon patient request, [...] Start Date: 07/13/19 Status: Ordered Vitamin D 94812 iu oral capsule 50,000 International_Units, 1, capsule, [...]
--- OUTSIDE RECORDS SUMMARY | 2022-11-14 10:53 | XMS_ITS | Continuity of Care Document ---
Author Name Unknown Organization [facility] Address [address] [place] [address]- Care Team Providers Care Bulldozer Operator Name Role Phone Flako Callahan DO Primary Care Physician En[facility] [place] Date(s): 02/09/20 - 03/16/20 [facility] [address] [place] [address]- [facility] Attending Physician: Cachorro Nielsen MD Admitting Physician: Cachroro Nielsen MD Allergies, Adverse Reactions, Alerts Substance [...] Maintenance, :17:00 EST, Route to Pharmacy Electronically, [facility]/pharmacy #[id number], 183, cm, 09/17/19 7:23:00 EST, [...] 1 Refills, Maintenance, 01/30/20 13:36:00 EDT, Tablet, [facility]/pharmacy #[id number], 183, cm, 01/19/20 9:23:00 EDT, [...] 09/14/19 11:11:00 EST, Route to Pharmacy Electronically, [facility]/pharmacy #[id number], Partialfill upon patient request, 183, cm, 09/14/19 9:28:0... Start Date: 09/14/19 Status: Ordered Vitamin C 1000 mg oral tablet 1 tablet = 1,000 mg, By Mouth, Daily, # 30 tablet, 0 Refills, Maintenance, 07/13/19 8:13:25 EST, Tablet Start Date: 07/13/19 Status: Ordered Vitamin D 98083 iu oral capsule 50,000 International_Units, 1, capsule, [...]
[2022-11-14] MEDS: oxyCODONE HCl Immed Release 5 MG TABLET 10 MG PO (11:34)
--- NOTE | 2022-11-14 11:35 | PC.NURSE ---
patient returned from xray and medicated for 05/26 pain
== END 2022-11-14 12:25 | disposition home or self-care (01) ==
PROVIDERS: Emergency Provider Emergency Medicine Emergency Medical Services; PCP Family Medicine
DX: S32.029A Unspecified fracture of second lumbar vertebra, initial encounter for closed fracture (principal); W01.0XXA Fall on same level from slipping, tripping and stumbling without subsequent striking against object, initial encounter; G89.29 Other chronic pain; M54.50 Low back pain, unspecified; E11.9 Type 2 diabetes mellitus without complications; I10 Essential (primary) hypertension; F12.90 Cannabis use, unspecified, uncomplicated; Z79.891 Long term (current) use of opiate analgesic; Z79.4 Long term (current) use of insulin; Y93.9 Activity, unspecified; Y92.031 Bathroom in apartment as the place of occurrence of the external cause; Y99.9 Unspecified external cause status
CPT/HCPCS: 72100; 72220; 99283

== ENCOUNTER 2023-03-23 16:44 | Outpatient (REF) | payer OTHER, SELFPAY | END 2023-03-23 16:45 | disposition home or self-care (01) | LOC: HO.LNP 16:44 | PROVIDERS: Visit Provider Physician Assistant | DX: S91.301D Unspecified open wound, right foot, subsequent encounter (principal) | CPT/HCPCS: 87070; 87073; 87076; 87077; 87185; 87186; 87205 ==

== ENCOUNTER 2023-04-10 10:48 | Outpatient (REF) | payer OTHER, SELFPAY ==
[2023-04-10 11:58] LABS: MANUAL DIFF FLAG NO
[2023-04-10 13:50] LABS: Basophils Absolute Auto 0.1 X10*3/uL (0.0-0.2); Basophils Percent Auto 0.8 % (0-2); Eosinophils Absolute Auto 0.2 X10*3/uL (0.0-0.4); Hematocrit 41.4 % (42.0-52.0); Hemoglobin 13.1 g/dl (14.0-18.0); Imm Gran Abs Auto 0.03 X10*3/uL (0.00-0.03); Imm Gran Pct Auto 0.4 % (0.0-0.4); Lymphocytes Absolute Auto 1.9 X10*3/uL (1.2-4.9); Mean Corpuscular HGB Conc 31.6 g/dl (31.0-36.0); Mean Corpuscular Hemoglobin 28.4 pg (27.0-33.0); Mean Corpuscular Volume 89.8 fL (80.0-98.0); Mean Platelet Volume 9.9 fL (9.4-12.4); Monocytes Absolute Auto 0.4 X10*3/uL (0.1-1.2); Monocytes Percent Auto 4.7 % (2-11); Neutrophils Absolute Auto 5.3 x10*3/uL (2.0-8.3); Neutrophils Percent Auto 68.1 % (45-73); Platelet Count 353 X10*3/uL (160-400); Red Blood Count 4.61 X10*6/uL (4.60-5.80); Red Cell Distribution Width 14.4 % (11.0-16.0); White Blood Count 7.8 X10*3/uL (4.8-10.8)
[2023-04-10 14:34] LABS: Anion Gap 14 (12-20); Blood Urea Nitrogen 14 mg/dL (9-16); Calcium 9.8 mg/dL (8.4-10.2); Carbon Dioxide 27 mmol/L (22-29); Chloride 103 mmol/L (96-108); Estimated Glomerular Filt Rate 55; Glucose Random 179 mg/dL (60-115); Potassium 3.5 mmol/L (3.3-5.1); Sodium 140 mmol/L (135-145)
== END 2023-04-10 10:49 | disposition home or self-care (01) ==
LOC: HO.LAB 10:48
PROVIDERS: PCP Family Medicine; Visit Provider Internal Medicine
DX: M86.9 Osteomyelitis, unspecified (principal)
CPT/HCPCS: 36415; 80048; 85025

== ENCOUNTER 2023-04-10 10:48 | Outpatient (AMB) | payer OTHER, SELFPAY ==
[2023-04-10 11:18] VITALS: BP 150/90; PULSE 85; O2SAT 99; BMI 28.7
--- NOTE | 2023-04-10 11:18 | MHC.OFFVIS ---
Intake Vital Signs 04/10/23 11:18 Height 6 ft Weight 212 lb BMI 28.7 BP 150/90 H Blood Pressure Location Lt brachial Position Sitting Pulse 85 Pulse Source Pulse Oximeter Pulse Oximetry (%) 99 Intake Visit Reasons: Ref.Wound Care,Osteomyelitis Allergies acetaminophen [From Vicodin] Allergy (Severe, Verified 04/10/23 11:20) Unknown hydrocodone [From Vicodin] Allergy (Severe, Verified 04/10/23 11:20) Unknown shellfish derived Allergy (Severe, Verified 04/10/23 11:20) Anaphylaxis gabapentin Allergy (Unknown, Uncoded 04/10/23 11:20) Unknown HPI Ref.Wound Care,Osteomyelitis HPI Details He presents for chronic osteomyelitis right lateral foot. He says this is second exacerbation OM in last 2 1/2 years. He skiis in ski boots in winter and October has OM recurrence. He has amputation right second toe. He had PICC line he says 11/2021 as well. He has culture 03/23/2023 no polys,plus 4 RBC and plus one gram positive cocci. He has enterococcus faecalis,proteus mirabilis and finegoldia magna. [facility] Medical History Anxiety Diabetes Hypertension Lower back injury Osteomyelitis Osteomyelitis of right foot Social History Alcohol intake: current Alcohol intake frequency: holidays/special occasions only Substance Use Type: Marijuana Review of Systems Const Details: All systems reviewed & are unremarkable except as noted in HPI and below Physical Exam Vital Signs: Last Vital Signs Pulse 85 04/10/23 11:18 BP 150/90 H 04/10/23 11:18 Pulse Ox 99 04/10/23 11:18 BMI result Body Mass Index 28.7 picture of wound in October,debrided Const General: cooperative Orientation/consciousness: patient oriented x3 HEENT Head: Yes normal to inspection Mouth: Normal oral and palatal mucosa present Eyes General: appearance normal, both eyes and all related structures Pupils: Equal, round and reactive pupils present Resp Effort & Inspection: normal respiratory effort Cardio Rate: regular rate Rhythm: regular rhythm GI Palpation (GI): Soft to palpation and nontender General: Yes no CVA tenderness Back/Spine/Pelvis Back: no CVA tenderness Skin General skin exam: no rashes or lesions noted Neuro General: patient oriented x3 Cranial nerves: Yes CN's II-XII intact bilaterally and Yes Equal, round and reactive pupils present Extrem Other: open ulcer 5 x5 cm right foot Psych Appearance: grossly normal Assessment & Plan Assessment & Plan (1) Osteomyelitis: Comment: He has chronic OM with multiple organisms Code(s): M86.9 - Osteomyelitis, unspecified Plan: Treat with Ceftriaxone proteus,enterococcus Daptomycin both for six weeks and po Flagyl for 14 days See in two weeks. Plan PICC line. Start flagyl and stop flagyl if nausea, Continue Cephalexin for now. See in two weeks Orders: Orders Basic Metabolic Panel Today M86.9 - Osteomyelitis, unspecified Complete Blood Count Auto Diff Today M86.9 - Osteomyelitis, unspecified Complete Blood Count Auto Diff 2 Weeks M86.9 - Osteomyelitis, unspecified Creatinine 2 Weeks M86.9 - Osteomyelitis, unspecified CK, Total+Isoenzymes, Serum 2 Weeks M86.9 - Osteomyelitis, unspecified IR cvc insert peripheral Today M86.9 - Osteomyelitis, unspecified Medications: New daptomycin administer over 30 mins 577 mg IV Q24H 42 days 42 ea 0RF ceftriaxone 1 g IV DAILY 42 ea 0RF 42 days daptomycin administer over 30 mins 577 mg IV Q24H 42 ea 0RF 42 days ceftriaxone 1 g IV DAILY 42 ea 0RF 42 days ceftriaxone 1 g IV DAILY 42 ea 0RF 42 days metronidazole 500 mg PO BID 14 tabs 0RF 7 days Coding Level of Care Code New Pt Level 3 (22024) Diagnoses Osteomyelitis M86.9
== END 2023-04-10 11:47 | disposition home or self-care (01) ==
LOC: HO.HID 10:48
PROVIDERS: PCP Family Medicine; Visit Provider Internal Medicine
DX: M86.9 Osteomyelitis, unspecified (principal)
CPT/HCPCS: 99203

== ENCOUNTER → 2023-04-15 09:20 | Day surgery (SDC) | payer OTHER, SELFPAY ==
--- NOTE | 2023-04-15 11:35 | HO.PICC ---
PICC Line Insertion NPICC Diagnosis: Osteomyletis Indication: supervisor intermediates antibiotics Pertinent Labs: reviewed Technique: Following informed consent including risks, benefits and alternatives and using sterile technique including cap and mask, sterile gown, glove and drape, the right arm was prepped and draped in the usual sterile fashion of full barrier technique with CHG. Following completion of [place] Protocol the skin and soft tissues were anesthetized with 1% Lidocaine plain. Using ultrasound guidance, basilic vein access was obtained. Over an 0.018 wire through peel-away sheath, a 4FRsingle lumen PICC line was positioned. Catheter length is 39 cm internal length, 0 cm external length, for a total trimmed length of 39 cm. The procedure was performed in rm 272. Tip verification was performed by Jerman Saha with Sandra 3CG. Tip located in SVC. Ultrasound was used to document vein patency and for needle entry. A formal ultrasound picture and cardiac rhythm strip was recorded. Vascular Conveyor Worker has released the line for use and it is currently dressed with a StatLock, Tegaderm, and CHG disc. Verification has been performed for blood return and line patency. Arm Circumference: 29cm Equipment: Power Picc Solo Catheter Type: 4 FR Power PICC Solo PASV Lot #: [id number]
== END ==
PROVIDERS: Radiology Diagnostic Radiology; PCP Family Medicine; Visit Provider Internal Medicine
DX: M86.9 Osteomyelitis, unspecified (principal)
CPT/HCPCS: 36573; C1751

== ENCOUNTER 2023-04-15 12:00 | Outpatient (REF) | payer OTHER, SELFPAY | END 2023-04-15 12:01 | disposition home or self-care (01) | LOC: HO.MDS 12:00 | PROVIDERS: Visit Provider Internal Medicine | DX: M86.9 Osteomyelitis, unspecified (principal) | CPT/HCPCS: 96365; 96367; J0696; J0878 ==

== ENCOUNTER 2023-04-22 09:08 | Outpatient (REF) | payer OTHER, SELFPAY | END 2023-04-22 09:09 | disposition home or self-care (01) | LOC: HO.MDS 09:08 | PROVIDERS: Visit Provider Internal Medicine | DX: M86.9 Osteomyelitis, unspecified (principal) | CPT/HCPCS: 96365; 96375; J0696; J0878 ==

== ENCOUNTER 2023-04-23 09:05 | Outpatient (REF) | payer MEDICAID, SELFPAY | END 2023-04-23 09:06 | disposition home or self-care (01) | LOC: HO.MDS 09:05 | PROVIDERS: PCP Family Medicine; Visit Provider Internal Medicine | DX: M86.9 Osteomyelitis, unspecified (principal) | CPT/HCPCS: 96365; 96367; J0696; J0878 ==

== ENCOUNTER 2023-04-24 09:23 | Outpatient (REF) | payer MEDICAID, SELFPAY | END 2023-04-24 09:24 | disposition home or self-care (01) | LOC: HO.MDS 09:23 | PROVIDERS: Visit Provider Internal Medicine | DX: M86.9 Osteomyelitis, unspecified (principal) | CPT/HCPCS: 96365; 96367; J0696; J0878 ==

== ENCOUNTER 2023-04-27 13:37 | Outpatient (REF) | payer MEDICAID, SELFPAY ==
[2023-04-28 06:21] LABS: Glucose, Whole Blood 297 mg/dL (60-115)
== END 2023-04-27 13:38 | disposition home or self-care (01) ==
LOC: HO.MDS 13:37
PROVIDERS: Visit Provider Internal Medicine
DX: M86.9 Osteomyelitis, unspecified (principal)
CPT/HCPCS: 82947; 96365; 96367; J0696; J0878

== ENCOUNTER 2023-04-28 09:35 | Outpatient (REF) | payer MEDICAID, SELFPAY | END 2023-04-28 09:36 | disposition home or self-care (01) | LOC: HO.MDS 09:35 | PROVIDERS: Visit Provider Internal Medicine | DX: M86.9 Osteomyelitis, unspecified (principal) | CPT/HCPCS: 96365; 96367; J0696; J0878 ==

== ENCOUNTER 2023-04-29 09:35 | Outpatient (REF) | payer MEDICAID, SELFPAY ==
[2023-04-29 12:03] LABS: MANUAL DIFF FLAG NO
[2023-04-29 13:17] LABS: Basophils Absolute Auto 0.1 X10*3/uL (0.0-0.2); Basophils Percent Auto 0.8 % (0-2); Eosinophils Absolute Auto 0.2 X10*3/uL (0.0-0.4); Eosinophils Percent Auto 2.3 % (0-4); Hemoglobin 11.8 g/dl (14.0-18.0); Imm Gran Abs Auto 0.03 X10*3/uL (0.00-0.03); Imm Gran Pct Auto 0.4 % (0.0-0.4); Lymphocytes Absolute Auto 1.8 X10*3/uL (1.2-4.9); Lymphocytes Percent Auto 22.4 % (20-40); Mean Corpuscular HGB Conc 31.1 g/dl (31.0-36.0); Mean Corpuscular Hemoglobin 28.4 pg (27.0-33.0); Mean Corpuscular Volume 91.6 fL (80.0-98.0); Mean Platelet Volume 10.8 fL (9.4-12.4); Monocytes Absolute Auto 0.4 X10*3/uL (0.1-1.2); Monocytes Percent Auto 4.8 % (2-11); Neutrophils Absolute Auto 5.5 x10*3/uL (2.0-8.3); Neutrophils Percent Auto 69.3 % (45-73); Platelet Count 252 X10*3/uL (160-400); Red Blood Count 4.15 X10*6/uL (4.60-5.80); Red Cell Distribution Width 14.1 % (11.0-16.0); White Blood Count 7.9 X10*3/uL (4.8-10.8)
[2023-04-29 13:55] LABS: Estimated Glomerular Filt Rate 51
[2023-05-02 17:13] LABS: CK-BB None Detected (None Detected); CK-MB 0 % (<5); CK-MM 100 % (95-100); Creatine Kinase,Total,Serum 85 U/L (44-196)
== END 2023-04-29 09:36 | disposition home or self-care (01) ==
LOC: HO.MDS 09:35
PROVIDERS: Visit Provider Internal Medicine
DX: M86.9 Osteomyelitis, unspecified (principal)
CPT/HCPCS: 36415; 82552; 82565; 85025; 96365; 99212; J0696; J0878

== ENCOUNTER 2023-04-29 11:52 | Outpatient (REF) | payer MEDICAID, SELFPAY | END 2023-04-29 11:53 | disposition home or self-care (01) | LOC: HO.LAB 11:52 | PROVIDERS: Visit Provider Internal Medicine | DX: Z13.89 Encounter for screening for other disorder (principal) ==

== ENCOUNTER 2023-04-29 13:15 | Outpatient (AMB) | payer MEDICAID, SELFPAY ==
--- NOTE | 2023-04-29 13:24 | MHC.OFFVIS ---
Intake Vital Signs 04/29/23 13:31 Height 6 ft Weight 217 lb BMI 29.4 BP 114/84 Blood Pressure Location Lt brachial Position Sitting Pulse 75 Pulse Source Pulse Oximeter Pulse Oximetry (%) 99 Intake Visit Reasons: f/u 2 wks./lab Allergies acetaminophen [From Vicodin] Allergy (Severe, Verified 04/10/23 11:20) Unknown hydrocodone [From Vicodin] Allergy (Severe, Verified 04/10/23 11:20) Unknown shellfish derived Allergy (Severe, Verified 04/10/23 11:20) Anaphylaxis gabapentin Allergy (Unknown, Uncoded 04/10/23 11:20) Unknown HPI f/u 2 wks./lab HPI Details He has no complaints. He is feeling better. [facility] Medical History Osteomyelitis Osteomyelitis of right foot Lower back injury Anxiety Hypertension Diabetes Social History Alcohol intake: current Alcohol intake frequency: holidays/special occasions only Substance Use Type: Marijuana Review of Systems Const All systems reviewed & are unremarkable except as noted in HPI and below Physical Exam Vital Signs: Last Vital Signs Pulse 75 04/29/23 13:31 BP 114/84 04/29/23 13:31 Pulse Ox 99 04/29/23 13:31 BMI result Body Mass Index 29.4 Const Other: General: cooperative Orientation/consciousness: patient oriented x3 HEENT Head: Yes normal to inspection Mouth: Normal oral and palatal mucosa present Eyes General: appearance normal, both eyes and all related structures Pupils: Equal, round and reactive pupils present Resp Effort & Inspection: normal respiratory effort Cardio Rate: regular rate Rhythm: regular rhythm GI Palpation (GI): Soft to palpation and nontender General: Yes no CVA tenderness Back/Spine/Pelvis Back: no CVA tenderness Skin General skin exam: no rashes or lesions noted Neuro General: patient oriented x3 Cranial nerves: Yes CN's II-XII intact bilaterally and Yes Equal, round and reactive pupils present Extrem Other: foot less erythema General: Yes normal to inspection Psych Appearance: grossly normal Assessment & Plan Assessment & Plan (1) Osteomyelitis: Comment: He has chronic OM with multiple organisms Code(s): M86.9 - Osteomyelitis, unspecified Plan: Finish antibiotics as directed. Coding Level of Care Code Est Pt Level 3 (07819) Diagnoses Osteomyelitis M86.9
[2023-04-29 13:31] VITALS: BP 114/84; PULSE 75; O2SAT 99; BMI 29.4
== END 2023-04-29 15:12 | disposition home or self-care (01) ==
LOC: HO.HID 13:15
PROVIDERS: PCP Family Medicine; Visit Provider Internal Medicine
DX: M86.9 Osteomyelitis, unspecified (principal)
CPT/HCPCS: 99213

== ENCOUNTER 2023-05-01 09:11 | Outpatient (REF) | payer MEDICAID, SELFPAY | END 2023-05-01 09:12 | disposition home or self-care (01) | LOC: HO.MDS 09:11 | PROVIDERS: Visit Provider Internal Medicine | DX: M86.9 Osteomyelitis, unspecified (principal) | CPT/HCPCS: 96365; 96367; J0696; J0878 ==

== ENCOUNTER 2023-05-02 09:10 | Outpatient (REF) | payer MEDICAID, SELFPAY | END 2023-05-02 09:11 | disposition home or self-care (01) | LOC: HO.MDS 09:10 | PROVIDERS: PCP Family Medicine; Visit Provider Internal Medicine | DX: M86.9 Osteomyelitis, unspecified (principal) | CPT/HCPCS: 96365; 96367; J0696; J0878 ==

== ENCOUNTER 2023-05-03 08:48 | Outpatient (REF) | payer MEDICAID, SELFPAY | END 2023-05-03 08:49 | disposition home or self-care (01) | LOC: HO.MDS 08:48 | PROVIDERS: Visit Provider Internal Medicine | DX: M86.9 Osteomyelitis, unspecified (principal) | CPT/HCPCS: 96365; 96367; J0696; J0878 ==

== ENCOUNTER 2023-05-04 09:36 | Outpatient (REF) | payer MEDICAID, SELFPAY | END 2023-05-04 09:37 | disposition home or self-care (01) | LOC: HO.MDS 09:36 | PROVIDERS: Visit Provider Orthopaedic Surgery | DX: M86.9 Osteomyelitis, unspecified (principal) | CPT/HCPCS: 96365; 96367; J0696; J0878 ==

== ENCOUNTER 2023-05-05 09:32 | Outpatient (REF) | payer MEDICAID, SELFPAY | END 2023-05-05 09:33 | disposition home or self-care (01) | LOC: HO.MDS 09:32 | PROVIDERS: Visit Provider Internal Medicine | DX: M86.9 Osteomyelitis, unspecified (principal) | CPT/HCPCS: 96365; 96367; J0878; J1335 ==

== ENCOUNTER 2023-05-06 09:10 | Outpatient (REF) | payer MEDICAID, SELFPAY | END 2023-05-06 09:11 | disposition home or self-care (01) | LOC: HO.MDS 09:10 | PROVIDERS: Visit Provider Internal Medicine | DX: M86.9 Osteomyelitis, unspecified (principal) | CPT/HCPCS: 96365; 96367; J0696; J0878 ==

== ENCOUNTER 2023-05-07 09:30 | Outpatient (REF) | payer MEDICAID, SELFPAY | END 2023-05-07 09:31 | disposition home or self-care (01) | LOC: HO.MDS 09:30 | PROVIDERS: Visit Provider Internal Medicine | DX: M86.9 Osteomyelitis, unspecified (principal) | CPT/HCPCS: 96365; 96367; J0696; J0878 ==

== ENCOUNTER 2023-05-08 09:04 | Outpatient (REF) | payer MEDICAID, SELFPAY | END 2023-05-08 09:05 | disposition home or self-care (01) | LOC: HO.MDS 09:04 | PROVIDERS: Visit Provider Internal Medicine | DX: M86.9 Osteomyelitis, unspecified (principal) | CPT/HCPCS: 96365; 96367; J0696; J0878 ==

== ENCOUNTER 2023-05-09 08:46 | Outpatient (REF) | payer MEDICAID, SELFPAY | END 2023-05-09 08:47 | disposition home or self-care (01) | LOC: HO.MDS 08:46 | PROVIDERS: PCP Family Medicine; Visit Provider Internal Medicine | DX: M86.9 Osteomyelitis, unspecified (principal) | CPT/HCPCS: 96365; 96367; J0696; J0878 ==

== ENCOUNTER 2023-05-11 08:51 | Outpatient (REF) | payer MEDICAID, SELFPAY ==
[2023-05-11 10:48] LABS: Glucose, Whole Blood 176 mg/dL (60-115)
== END 2023-05-11 08:52 | disposition home or self-care (01) ==
LOC: HO.MDS 08:51
PROVIDERS: Visit Provider Internal Medicine
DX: M86.9 Osteomyelitis, unspecified (principal)
CPT/HCPCS: 82947; 96365; 96367; J0696; J0878

== ENCOUNTER 2023-05-12 09:59 | Outpatient (REF) | payer MEDICAID, SELFPAY ==
[2023-05-12 12:25] LABS: MANUAL DIFF FLAG NO
[2023-05-12 12:50] LABS: Basophils Percent Auto 0.5 % (0-2); Eosinophils Absolute Auto 0.1 X10*3/uL (0.0-0.4); Eosinophils Percent Auto 2.3 % (0-4); Hematocrit 37.3 % (42.0-52.0); Hemoglobin 11.8 g/dl (14.0-18.0); Imm Gran Abs Auto 0.02 X10*3/uL (0.00-0.03); Imm Gran Pct Auto 0.3 % (0.0-0.4); Lymphocytes Absolute Auto 1.6 X10*3/uL (1.2-4.9); Lymphocytes Percent Auto 26.4 % (20-40); Mean Corpuscular HGB Conc 31.6 g/dl (31.0-36.0); Mean Corpuscular Hemoglobin 28.6 pg (27.0-33.0); Mean Corpuscular Volume 90.3 fL (80.0-98.0); Monocytes Absolute Auto 0.4 X10*3/uL (0.1-1.2); Monocytes Percent Auto 6.4 % (2-11); Neutrophils Absolute Auto 3.9 x10*3/uL (2.0-8.3); Neutrophils Percent Auto 64.1 % (45-73); Platelet Count 240 X10*3/uL (160-400); Red Blood Count 4.13 X10*6/uL (4.60-5.80); Red Cell Distribution Width 13.7 % (11.0-16.0); White Blood Count 6.1 X10*3/uL (4.8-10.8)
[2023-05-12 14:11] LABS: Estimated Glomerular Filt Rate > 60
== END 2023-05-12 10:00 | disposition home or self-care (01) ==
LOC: HO.MDS 09:59
PROVIDERS: Visit Provider Internal Medicine
DX: M86.9 Osteomyelitis, unspecified (principal)
CPT/HCPCS: 36415; 82550; 82565; 85025; 96365; 96367; J0696; J0878

== ENCOUNTER 2023-05-13 09:51 | Outpatient (REF) | payer MEDICAID, SELFPAY | END 2023-05-13 09:52 | disposition home or self-care (01) | LOC: HO.MDS 09:51 | PROVIDERS: PCP Family Medicine; Visit Provider Internal Medicine | DX: M86.9 Osteomyelitis, unspecified (principal) | CPT/HCPCS: 96365; 96375; 99212; J0696; J0878 ==

== ENCOUNTER 2023-05-13 11:34 | Outpatient (AMB) | payer MEDICAID, SELFPAY ==
--- NOTE | 2023-05-13 11:34 | A.OFFVIS_ITS ---
Intake Vital Signs 3 05/13/23 11:41 Height 6 ft Weight 225 lb BMI 30.5 BP 130/80 Blood Pressure Location Lt brachial Position Sitting Pulse 75 Pulse Source Pulse Oximeter Pulse Oximetry (%) 98 Intake Visit Reasons: 2 wks f/u Allergies acetaminophen [From Vicodin] Allergy (Severe, Verified 05/13/23 11:42) Unknown hydrocodone [From Vicodin] Allergy (Severe, Verified 05/13/23 11:42) Unknown shellfish derived Allergy (Severe, Verified 05/13/23 11:42) Anaphylaxis gabapentin Allergy (Unknown, Uncoded 04/10/23 11:20) Unknown HPI 2 wks f/u 2 HPI0 Details He feels foot is looking improved. He is looking forward to HBO. He is seeing wound clinic on 06/01. He has unremarkable blood work. He is taking Daptomycin for enterococcus foot and Ceftriaxone for proteus. [facility] Medical History Osteomyelitis Osteomyelitis of right foot Lower back injury Anxiety Hypertension Diabetes Social History Alcohol intake: current Alcohol intake frequency: holidays/special occasions only Substance Use Type: Marijuana Review of Systems Const All systems reviewed & are unremarkable except as noted in HPI and below Physical Exam Vital Signs: Last Vital Signs Pulse 75 05/13/23 11:41 BP 130/80 05/13/23 11:41 Pulse Ox 98 05/13/23 11:41 BMI result Body Mass Index 30.5 Const Other: General: cooperative Orientation/consciousness: patient oriented x3 HEENT Head: Yes normal to inspection Mouth: Normal oral and palatal mucosa present Eyes General: appearance normal, both eyes and all related structures Pupils: Equal, round and reactive pupils present Resp Effort & Inspection: normal respiratory effort Cardio Rate: regular rate Rhythm: regular rhythm GI Palpation (GI): Soft to palpation and nontender General: Yes no CVA tenderness Back/Spine/Pelvis Back: no CVA tenderness Skin General skin exam: no rashes or lesions noted Neuro General: patient oriented x3 Cranial nerves: Yes CN's II-XII intact bilaterally and Yes Equal, round and reactive pupils present Extrem Other: wound improved Psych Appearance: grossly normal Assessment & Plan Assessment & Plan (1) Osteomyelitis: Comment: He has chronic OM with multiple organisms Code(s): M86.9 - Osteomyelitis, unspecified Plan: Continue IV antibiotics. Pull PICC line and stop antibiotics on 06/02/2023. See patient in one months Orders: Orders 2 IR cvc remove any age Today M86.9 - Osteomyelitis, unspecified Coding Level of Care Code Est Pt Level 3 (92089) Diagnoses Osteomyelitis M86.9
[2023-05-13 11:41] VITALS: BP 130/80; PULSE 75; O2SAT 98; BMI 30.5
== END 2023-05-13 12:08 | disposition home or self-care (01) ==
LOC: HO.HID 11:34
PROVIDERS: PCP Family Medicine; Visit Provider Internal Medicine
DX: M86.9 Osteomyelitis, unspecified (principal)
CPT/HCPCS: 99213

== ENCOUNTER 2023-05-14 09:42 | Outpatient (REF) | payer MEDICAID, SELFPAY | END 2023-05-14 09:43 | disposition home or self-care (01) | LOC: HO.MDS 09:42 | PROVIDERS: Visit Provider Internal Medicine | DX: M86.9 Osteomyelitis, unspecified (principal) | CPT/HCPCS: 96365; 96367; J0696; J0878 ==

== ENCOUNTER 2023-05-15 09:06 | Outpatient (REF) | payer MEDICAID, SELFPAY | END 2023-05-15 09:07 | disposition home or self-care (01) | LOC: HO.MDS 09:06 | PROVIDERS: Visit Provider Internal Medicine | DX: M86.9 Osteomyelitis, unspecified (principal) | CPT/HCPCS: 96365; 96367; J0696; J0878 ==

== ENCOUNTER 2023-05-16 09:41 | Outpatient (REF) | payer MEDICAID, SELFPAY | END 2023-05-16 09:42 | disposition home or self-care (01) | LOC: HO.MDS 09:41 | PROVIDERS: PCP Family Medicine; Visit Provider Internal Medicine | DX: M86.9 Osteomyelitis, unspecified (principal) | CPT/HCPCS: 96365; 96375; J0696; J0878 ==

== ENCOUNTER 2023-05-17 09:42 | Outpatient (REF) | payer MEDICAID, SELFPAY | END 2023-05-17 09:43 | disposition home or self-care (01) | LOC: HO.MDS 09:42 | PROVIDERS: Visit Provider Internal Medicine | DX: M86.9 Osteomyelitis, unspecified (principal) | CPT/HCPCS: 96365; 96367; J0696; J0878 ==

== ENCOUNTER 2023-05-18 09:05 | Outpatient (REF) | payer MEDICAID, SELFPAY | END 2023-05-18 09:06 | disposition home or self-care (01) | LOC: HO.MDS 09:05 | PROVIDERS: Visit Provider Internal Medicine | DX: M86.9 Osteomyelitis, unspecified (principal) | CPT/HCPCS: 96365; 96367; J0696; J0878 ==

== ENCOUNTER 2023-05-19 08:52 | Outpatient (REF) | payer MEDICAID, SELFPAY | END 2023-05-19 08:53 | disposition home or self-care (01) | LOC: HO.MDS 08:52 | PROVIDERS: Visit Provider Internal Medicine | DX: M86.9 Osteomyelitis, unspecified (principal) | CPT/HCPCS: 96365; 96367; J0696; J0878 ==

== ENCOUNTER 2023-05-20 08:38 | Outpatient (REF) | payer MEDICAID, SELFPAY ==
[2023-05-20 12:11] LABS: Estimated Glomerular Filt Rate 57
== END 2023-05-20 08:39 | disposition home or self-care (01) ==
LOC: HO.MDS 08:38
PROVIDERS: PCP Family Medicine; Visit Provider Internal Medicine
DX: M86.9 Osteomyelitis, unspecified (principal)
CPT/HCPCS: 36415; 82550; 82565; 96365; 96367; J0696; J0878

== ENCOUNTER 2023-05-21 08:48 | Outpatient (REF) | payer MEDICAID, SELFPAY | END 2023-05-21 08:49 | disposition home or self-care (01) | LOC: HO.MDS 08:48 | PROVIDERS: Visit Provider Internal Medicine | DX: M86.9 Osteomyelitis, unspecified (principal) | CPT/HCPCS: 96365; 96367; J0696; J0878 ==

== ENCOUNTER 2023-05-22 08:56 | Outpatient (REF) | payer MEDICAID, SELFPAY | END 2023-05-22 08:57 | disposition home or self-care (01) | LOC: HO.MDS 08:56 | PROVIDERS: Visit Provider Internal Medicine | DX: M86.9 Osteomyelitis, unspecified (principal) | CPT/HCPCS: 96365; 96367; J0696; J0878 ==

== ENCOUNTER 2023-05-23 09:18 | Outpatient (REF) | payer MEDICAID, SELFPAY | END 2023-05-23 09:19 | disposition home or self-care (01) | LOC: HO.MDS 09:18 | PROVIDERS: Visit Provider Internal Medicine | DX: M86.9 Osteomyelitis, unspecified (principal) | CPT/HCPCS: 96365; 96367; J0696; J0878 ==

== ENCOUNTER 2023-05-24 09:13 | Outpatient (REF) | payer MEDICAID, SELFPAY | END 2023-05-24 09:14 | disposition home or self-care (01) | LOC: HO.MDS 09:13 | PROVIDERS: Visit Provider Internal Medicine | DX: M86.9 Osteomyelitis, unspecified (principal) | CPT/HCPCS: 96365; 96367; J0696; J0878 ==

== ENCOUNTER 2023-05-25 09:27 | Outpatient (REF) | payer MEDICAID, SELFPAY | END 2023-05-25 09:28 | disposition home or self-care (01) | LOC: HO.MDS 09:27 | PROVIDERS: PCP Family Medicine; Visit Provider Internal Medicine | DX: M86.9 Osteomyelitis, unspecified (principal) | CPT/HCPCS: 96365; 96367; J0878 ==

== ENCOUNTER 2023-05-26 09:21 | Outpatient (REF) | payer MEDICAID, SELFPAY | END 2023-05-26 09:22 | disposition home or self-care (01) | LOC: HO.MDS 09:21 | PROVIDERS: Visit Provider Internal Medicine | DX: M86.9 Osteomyelitis, unspecified (principal) | CPT/HCPCS: 96365; 96367; J0696; J0878 ==

== ENCOUNTER 2023-05-27 09:24 | Outpatient (REF) | payer MEDICAID, SELFPAY ==
[2023-05-27 13:23] LABS: Estimated Glomerular Filt Rate > 60
== END 2023-05-27 09:25 | disposition home or self-care (01) ==
LOC: HO.MDS 09:24
PROVIDERS: PCP Family Medicine; Visit Provider Internal Medicine
DX: M86.9 Osteomyelitis, unspecified (principal)
CPT/HCPCS: 36415; 82565; 85025; 96365; 96367; J0696; J0878

== ENCOUNTER 2023-05-28 09:26 | Outpatient (REF) | payer MEDICAID, SELFPAY | END 2023-05-28 09:27 | disposition home or self-care (01) | LOC: HO.MDS 09:26 | PROVIDERS: Visit Provider Internal Medicine | DX: M86.9 Osteomyelitis, unspecified (principal) | CPT/HCPCS: 96365; 96367; J0696; J0878 ==

== ENCOUNTER 2023-05-29 08:59 | Outpatient (REF) | payer MEDICAID, SELFPAY | END 2023-05-29 09:00 | disposition home or self-care (01) | LOC: HO.MDS 08:59 | PROVIDERS: Visit Provider Internal Medicine | DX: M86.9 Osteomyelitis, unspecified (principal) | CPT/HCPCS: 96365; 96367; J0696; J0878 ==

== ENCOUNTER 2023-05-30 09:48 | Outpatient (REF) | payer MEDICAID, SELFPAY | END 2023-05-30 09:49 | disposition home or self-care (01) | LOC: HO.MDS 09:48 | PROVIDERS: PCP Family Medicine; Visit Provider Internal Medicine | DX: M86.9 Osteomyelitis, unspecified (principal) | CPT/HCPCS: 96365; 96367; J0696; J0878 ==

== ENCOUNTER 2023-05-31 09:16 | Outpatient (REF) | payer MEDICAID, SELFPAY | END 2023-05-31 09:17 | disposition home or self-care (01) | LOC: HO.MDS 09:16 | PROVIDERS: PCP Family Medicine; Visit Provider Internal Medicine | DX: M86.9 Osteomyelitis, unspecified (principal) | CPT/HCPCS: 96365; 96367; J0696; J0878 ==

== ENCOUNTER 2023-06-02 09:06 | Outpatient (REF) | payer MEDICAID, SELFPAY | END 2023-06-02 09:07 | disposition home or self-care (01) | LOC: HO.MDS 09:06 | PROVIDERS: Visit Provider Internal Medicine | DX: M86.9 Osteomyelitis, unspecified (principal) | CPT/HCPCS: 96365; 96367; J0696; J0878 ==

== ENCOUNTER 2023-06-03 09:09 | Outpatient (REF) | payer MEDICAID, SELFPAY ==
--- NOTE | 2023-06-03 10:33 | HO.REMOVAL ---
Removal of PICC/Midline Removal of PICC/Midline: Removal of PICC: 1. Date: 06/03/2023 2. Reason removed: MD order Antibiotic finished 3. Inserted length: 39 cm 4. Removed length: 39 cm 5. A dressing was placed over the site upon removal. No edema, hematoma or bleeding at the site.
== END 2023-06-03 09:10 | disposition home or self-care (01) ==
LOC: HO.MDS 09:09
PROVIDERS: Visit Provider Internal Medicine
DX: M86.9 Osteomyelitis, unspecified (principal)
CPT/HCPCS: 96365; 96367; 99212; J0696; J0878

== ENCOUNTER 2023-06-03 10:48 | Outpatient (REF) | payer MEDICAID, SELFPAY ==
[2023-06-03 11:13] LABS: MANUAL DIFF FLAG NO
[2023-06-03 11:30] LABS: Basophils Percent Auto 0.6 % (0-2); Eosinophils Absolute Auto 0.1 X10*3/uL (0.0-0.4); Eosinophils Percent Auto 2.1 % (0-4); Hematocrit 37.3 % (42.0-52.0); Hemoglobin 11.8 g/dl (14.0-18.0); Imm Gran Abs Auto 0.02 X10*3/uL (0.00-0.03); Imm Gran Pct Auto 0.4 % (0.0-0.4); Lymphocytes Absolute Auto 1.3 X10*3/uL (1.2-4.9); Lymphocytes Percent Auto 24.3 % (20-40); Mean Corpuscular HGB Conc 31.6 g/dl (31.0-36.0); Mean Corpuscular Hemoglobin 28.4 pg (27.0-33.0); Mean Corpuscular Volume 89.9 fL (80.0-98.0); Monocytes Absolute Auto 0.3 X10*3/uL (0.1-1.2); Neutrophils Absolute Auto 3.6 x10*3/uL (2.0-8.3); Neutrophils Percent Auto 66.6 % (45-73); Platelet Count 257 X10*3/uL (160-400); Red Blood Count 4.15 X10*6/uL (4.60-5.80); White Blood Count 5.4 X10*3/uL (4.8-10.8)
[2023-06-03 12:10] LABS: Estimated Glomerular Filt Rate > 60
== END 2023-06-03 10:49 | disposition home or self-care (01) ==
LOC: HO.LAB 10:48
PROVIDERS: Visit Provider Internal Medicine
DX: Z13.89 Encounter for screening for other disorder (principal)
CPT/HCPCS: 36415; 82565; 85025

== ENCOUNTER 2023-06-03 11:32 | Outpatient (AMB) | payer MEDICAID, SELFPAY ==
--- NOTE | 2023-06-03 11:27 | A.OFFVIS_ITS ---
Intake Vital Signs 3 06/03/23 11:37 Height 6 ft Weight 227 lb BMI 30.8 BP 165/87 H Pulse 72 Pulse Source Pulse Oximeter Pulse Oximetry (%) 98 Intake Visit Reasons: f/u abx started 04/15 check wound Allergies acetaminophen [From Vicodin] Allergy (Severe, Verified 06/03/23 11:38) Unknown hydrocodone [From Vicodin] Allergy (Severe, Verified 06/03/23 11:38) Unknown shellfish derived Allergy (Severe, Verified 06/03/23 11:38) Anaphylaxis gabapentin Allergy (Unknown, Uncoded 04/10/23 11:20) Unknown HPI f/u abx started 04/15 check wound 2 HPI0 Details He finished six weeks Daptomycin IV for enterococcus and Ceftriaxone for proteus in foot. He has no complaints but missed visit with Wound Care this week. Both organisms are susceptible to Amoxicillin. He is going to see Wound Care again soon. [facility] Medical History Osteomyelitis Osteomyelitis of right foot Lower back injury Anxiety Hypertension Diabetes Social History Alcohol intake: current Alcohol intake frequency: holidays/special occasions only Substance Use Type: Marijuana Review of Systems Const All systems reviewed & are unremarkable except as noted in HPI and below Physical Exam Vital Signs: Last Vital Signs Pulse 72 06/03/23 11:37 BP 165/87 H 06/03/23 11:37 Pulse Ox 98 06/03/23 11:37 BMI result Body Mass Index 30.8 Const Other: General: cooperative Orientation/consciousness: patient oriented x3 HEENT Head: Yes normal to inspection Mouth: Normal oral and palatal mucosa present Eyes General: appearance normal, both eyes and all related structures Pupils: Equal, round and reactive pupils present Resp Effort & Inspection: normal respiratory effort Cardio Rate: regular rate Rhythm: regular rhythm GI Palpation (GI): Soft to palpation and nontender General: Yes no CVA tenderness Back/Spine/Pelvis Back: no CVA tenderness Skin General skin exam: no rashes or lesions noted Neuro General: patient oriented x3 Cranial nerves: Yes CN's II-XII intact bilaterally and Yes Equal, round and reactive pupils present Extrem Other: foot healing but some exudate Psych Appearance: grossly normal Assessment & Plan Assessment & Plan (1) Osteomyelitis: Comment: He has chronic OM with multiple organisms He is done with IV antibiotics and PICC is out Code(s): M86.9 - Osteomyelitis, unspecified Plan: Would continue two weeks po Amoxicillin 500 mg tid (ordered). Continue to see Wound Clinic and looks like may need debridement. No further appointments made here but see again if referred again,ty Medications: New 2 amoxicillin 500 mg PO TID 14 days 42 caps 0RF Coding Level of Care Code Est Pt Level 3 (73128) Diagnoses Osteomyelitis M86.9
[2023-06-03 11:37] VITALS: BP 165/87; PULSE 72; O2SAT 98; BMI 30.8
== END 2023-06-03 12:03 | disposition home or self-care (01) ==
PROVIDERS: PCP Family Medicine; Visit Provider Internal Medicine
DX: M86.9 Osteomyelitis, unspecified (principal)
CPT/HCPCS: 99213

== ENCOUNTER 2023-08-11 10:03 | Emergency (ER) | payer MEDICAID, SELFPAY ==
--- NOTE | ~2023-08-11 | XR_ITS ---
EXAMINATION: XR LUMBOSACRAL SPINE CLINICAL INFORMATION: Right lateral lumbar pain. COMPARISON: None available. TECHNIQUE: Three views of the lumbosacral spine. FINDINGS: There is mild straightening of lumbar lordosis. Grade 1 anterolisthesis L4-L5. Rest of the alignment is normal. There is superior end plate deformity L2 vertebra. No additional bony abnormality seen. No aggressive lytic or sclerotic process seen. SI joints are symmetrical and normal. The paravertebral soft tissues are normal. XR/XR lumbar spine 2-3V IMPRESSION: 1. Grade 1 anterolisthesis L4 over L5. 2. Superior end plate deformity L2 vertebra. No acute fracture or dislocation seen. 3. The SI joints are symmetrical and normal.
[2023-08-11 10:16] VITALS: BP 151/92; PULSE 87; RESP 18; TEMP 36.6; O2SAT 98; BMI 29.8
[2023-08-11 11:29] VITALS: BP 137/67; PULSE 73; RESP 20; TEMP 36.7; O2SAT 99
--- NOTE | 2023-08-11 12:28 | ED.BACK ---
HPI - Back Pain/Injury General Chief Complaint: Back Pain/Injury Stated Complaint: Back Pain No Injury Time Seen by Provider: 08/11/23 11:35 Source: patient Mode of arrival: other (uber) Limitations: no limitations History of Present Illness HPI Narrative: 57 history of osteomyelitis, compression fractures of L1 through L4, presenting to the emergency department for evaluation of acute on chronic back pain acutely worsening since Thursday. Patient reports he is on oxycodone 10 mg 5 times a day he has been taking Tylenol as well with little to no relief. Patient reports pain worse with movement better at rest feels like his typical back pain. No atypical symptoms. Denies urinary / bowel incontinence/retention, numbness, tingling, fevers, chills, chest pain, shortness of breath, nausea, vomiting, abdominal pain, urinary symptoms. No trauma Related Data Home Medications Medication Instructions Recorded Confirmed amlodipine 10 mg tablet 10 mg PO DAILY 04/10/23 bisacodyl 5 mg tablet (Laxative 5 mg PO BEDTIME 04/10/23 (bisacodyl)) escitalopram oxalate 10 mg tablet 10 mg PO DAILY 04/10/23 flecainide 100 mg tablet 100 mg PO Q12H 04/10/23 insulin glargine 100 unit/mL 20 unit subcut DAILY 04/10/23 subcutaneous solution (Lantus U-100 Insulin) insulin lispro 100 unit/mL 1 sliding scale dose subcut 04/10/23 subcutaneous half-unit pen USEASDIRECTD lisinopril 20 mg tablet 20 mg PO DAILY 04/10/23 lorazepam 1 mg tablet 1 mg PO DAILY PRN 04/10/23 lorazepam 1 mg tablet 1 mg PO DAILY PRN 04/10/23 metoprolol succinate 25 mg 25 mg PO DAILY 04/10/23 tablet,extended release 24 hr mirtazapine 15 mg tablet 15 mg PO DAILY 04/10/23 ondansetron 8 mg disintegrating 8 mg PO Q12H 04/10/23 tablet oxycodone 5 mg capsule 5 mg PO BID PRN 04/10/23 pregabalin 50 mg capsule 50 mg PO DAILY 04/10/23 probenecid 500 mg tablet 500 mg PO BID 04/10/23 Previous Rx's Medication Instructions Recorded amoxicillin 500 mg capsule 500 mg PO TID 14 days #42 caps 10/18/23 cyclobenzaprine 10 mg tablet 10 mg PO BEDTIME PRN muscle spasm 08/11/23 #7 tabs ketorolac 10 mg tablet 10 mg PO TID PRN pain 5 days #15 08/11/23 tabs lidocaine 5 % topical patch 1 patch topical DAILY PRN pain #15 08/11/23 ea Allergies Allergy/AdvReac Type Severity Reaction Status Date / Time hydrocodone [From Vicodin] Allergy Severe Unknown Verified 08/11/23 10:18 shellfish derived Allergy Severe Anaphylaxis Verified 08/11/23 10:18 gabapentin Allergy Unknown Unknown Uncoded 04/10/23 11:20 Review of Systems Review of Systems: Constitutional : No Weight loss, No Fever, No Chills, ENT/Mouth : No Hearing loss, No Ear Pain, No Nasal Congestion, No Sinus Pain, No Hoarseness, No sore throat, No Rhinorrhea, No Swallowing Difficulty Cardiovascular : No Chest Pain, No SOB Respiratory : No Cough, No Dyspnea Gastrointestinal : No Nausea, No Vomiting, No Diarrhea, No abdominal Pain, No Hematochezia, No Melena Genitourinary : No Dysuria, No Urinary Frequency, No Hematuria, No Urinary Incontinence, Musculoskeletal : positive back pain Skin : No Skin Lesions, No rash Neuro : No Weakness, No Numbness, No Paresthesias, no loss of bowel or bladder incontinence, no saddle anesthesia Yes all other systems are reviewed and are negative [facility] Past Medical History Attestation statement: The following information was validated with the patient. Source: old records reviewed and nursing notes reviewed Medical History Osteomyelitis Osteomyelitis of right foot Lower back injury Anxiety Hypertension Diabetes Social History Social History Unable to assess alcohol history related to: Unknown Alcohol intake: current Alcohol intake frequency: holidays/special occasions only Smoked in Last 30 Days: Yes Use of substances other than those prescribed or required for medical reasons: Unknown Substance Use Type: Marijuana Advance Directives: No Advance Directives Information Provided: No Physical Exam Vital Signs: Vital Signs: Last Vital Signs Temp 98.1 F 08/11/23 15:50 Pulse 76 08/11/23 15:50 Resp 18 08/11/23 15:50 BP 151/91 H 08/11/23 15:50 Pulse Ox 98 08/11/23 15:50 O2 Del Method Room Air 08/11/23 15:50 BMI result Body Mass Index 29.8 vss Appearance: Alert.? Oriented X3.? No acute distress.? Head: Normocephalic, atraumatic, no step-offs or deformities Eyes: Pupils equal, round and reactive to light.? ENT: Pharynx normal.? Neck: Normal inspection.? Neck supple.? CVS: Normal heart rate and rhythm.? Pulses normal.? Respiratory: No respiratory distress.? Breath sounds normal.? Abdomen: Soft and nontender.? Skin: Skin warm and dry.? Normal skin color.? Normal skin turgor.? Extremities: No lower extremity edema.? No calf ttp. 5/5 strength to bilateral upper and lower extremities Back: No midline tenderness, no C-spine tenderness, full range of motion, no CVA tenderness bilaterally + L1-L4 paraspinous tenderness b/l. No saddle paresthesias full ROM to back. Neuro: Oriented X 3.? No motor deficit.? No sensory deficit. CN 2-12 intact. Ambulating w/ steady gait noormal coordination. Course Reevaluation(s) Reevaluation #1: patient was still reporting some discomfort when we went to discuss discharge, some relief in symptoms. Ambulatory. Plan is discharge home with Toradol. He does have oxycodone at home. Lumbar X Lumbar x-ray still pending. Time: 15:14 Reevaluation #2: x-ray showing grade 1 anterolisthesis L4 over L5. Superior endplate deformity of L2 vertebra no acute fracture dislocation seen. The SI jooints are symmetrical and normal. Patien ambulating well appearing will follow up with primary provider and specialist. Educated patient on diagnosis and treatment plan, answered all question, patient verbalizes understanding. At this time patient will be discharged home, advised to return with new or worsening symptoms. Educated on worrisome signs and symptoms and when to return. At this time I feel comfortable discharge home. Time: 16:21 Medications Administered Discontinued Medications Generic Name Dose Route Start Last Admin Trade Name Freq PRN Reason Stop Dose Admin Cyclobenzaprine HCl 10 mg 08/11/23 12:32 08/11/23 12:48 Cyclobenzaprine Hcl 10 Mg Tablet PO 08/11/23 12:33 10 mg ONCE ONE Administration Diazepam 2 mg 08/11/23 16:00 08/11/23 16:12 Diazepam 2 Mg Tablet PO 08/11/23 16:01 2 mg ONCE ONE Administration Ketorolac Tromethamine 30 mg 08/11/23 12:32 08/11/23 12:49 Ketorolac Tromethamine 15 Mg/Ml Vial IM 08/11/23 12:33 30 mg ONCE ONE Administration Lidocaine 2 patch 08/11/23 12:32 08/11/23 12:48 Lidocaine 4 % Patch Adh..Patch TRANSDERMA 08/11/23 12:33 2 patch ONCE ONE Administration Protocol Oxycodone HCl 10 mg 08/11/23 14:14 08/11/23 14:29 Oxycodone Hcl Immed Release 5 Mg Tablet PO 08/11/23 14:15 10 mg ONCE ONE Administration Medical Decision Making Medical Decision Making MDM Narrative: 57-year-old male presents with acute on chronic back pain. Worsening since Thursday. On home oxycodone not helping with the pain. Physical exam + L1-L4 paraspinous tenderness b/l. No saddle paresthesias full ROM to back. Oriented X 3.? No motor deficit.? No sensory deficit. CN 2-12 intact. Ambulating w/ steady gait noormal coordination. history and physical exam concerning for acute on chronic back pain, likely secondary to old compression fractures, question paraspinous muscle spasms. Unlikely fracture, dislocation this is atraumatic no signs of cauda equina, epidural abscess, cord compression. Unlikely osteomyelitis. No indication for imaging atraumatic, no red flag symptoms. Will give Toradol, cyclobenzaprine as patient took a new were here, and give Lidoderm patches. Differential Diagnosis Differential Diagnoses: The differential diagnosis associated with the presentation includes history and physical exam concerning for acute on chronic back pain, likely secondary to old compression fractures, question paraspinous muscle spasms. Unlikely fracture, dislocation this is atraumatic no signs of cauda equina, epidural abscess, cord compression. Unlikely osteomyelitis. Admission/Observation Consideration of admission/observation: Escalation of care including admission[facility]ation [facility] Critical Care Time Critical Care Time Critical Care Time: No Discharge Plan Discharge Clinical Impression: Acute exacerbation of chronic low back pain Patient Disposition: Home, Self-Care Instructions: Back Pain (ED) Additional Instructions: Take your medications as prescribed. If you were prescribed antibiotics today, it is important that you take your medication to their entirety, do not skip any doses, do not finish them early. Follow-up with your primary care provider this week. Return to the emergency department with new or worsening symptoms. Such as fevers, chills, chest pain, shortness of breath, nausea, vomiting, dizziness, headache, vision changes, lethargy In case of emergency call 911 Toradol has been sent to your pharmacy, you tolerated this well in the department. Please take this as prescribed do not take this with ibuprofen, or other NSAIDs or probenecid do not mix this with alcohol. Side effects of this medication including increased risk for bleeding and possible kidney injury. Prescriptions: New ketorolac 10 mg tablet 10 mg PO TID PRN (Reason: pain) 5 Days Qty: 15 0RF lidocaine 5 % adhesive patch,medicated 1 patch topical DAILY PRN (Reason: pain) Qty: 15 0RF Rx Instructions: leave on most painful area for up to 12 hrs cyclobenzaprine 10 mg tablet 10 mg PO BEDTIME PRN (Reason: muscle spasm) Qty: 7 0RF No Action lorazepam 1 mg tablet 1 mg PO DAILY PRN insulin lispro 100 unit/mL insulin pen, half-unit 1 sliding scale dose subcut USEASDIRECTD oxycodone 5 mg capsule 5 mg PO BID PRN amlodipine 10 mg tablet 10 mg PO DAILY Laxative (bisacodyl) 5 mg tablet 5 mg PO BEDTIME metoprolol succinate 25 mg tablet extended release 24 hr 25 mg PO DAILY probenecid 500 mg tablet 500 mg PO BID lorazepam 1 mg tablet 1 mg PO DAILY PRN flecainide 100 mg tablet 100 mg PO Q12H insulin glargine [Lantus U-100 Insulin] 100 unit/mL solution 20 unit subcut DAILY mirtazapine 15 mg tablet 15 mg PO DAILY lisinopril 20 mg tablet 20 mg PO DAILY escitalopram oxalate 10 mg tablet 10 mg PO DAILY ondansetron 8 mg tablet,disintegrating 8 mg PO Q12H pregabalin 50 mg capsule 50 mg PO DAILY amoxicillin 500 mg capsule 500 mg PO TID 14 Days Qty: 42 0RF Referrals: Flako Callahan MD [Primary Care Provider] - 2 days [facility] [Provider Group] - 1 day Interventions: ED Discharge Assessment Last Done: 08/11/23 16:21
[2023-08-11] MEDS: Lidocaine 4 % Patch ADH..PATCH 2 PATCH TRANSDERMA (12:48)
[2023-08-11] MEDS: Cyclobenzaprine HCl 10 MG TABLET PO (12:48)
[2023-08-11] MEDS: Ketorolac Tromethamine 15 MG/ML VIAL 30 MG IM (12:49)
[2023-08-11 13:37] VITALS: BP 156/61; PULSE 73; RESP 20; TEMP 36.7; O2SAT 98
[2023-08-11] MEDS: oxyCODONE HCl Immed Release 5 MG TABLET 10 MG PO (14:29)
[2023-08-11 15:50] VITALS: BP 151/91; PULSE 76; RESP 18; TEMP 36.7; O2SAT 98
--- NOTE | 2023-08-11 15:50 | PC.NURSE ---
Pt continues to complain of pain to low back. LAMBERT Hurtado notifed, will speak to patient.
[2023-08-11] MEDS: diazePAM 2 MG TABLET PO (16:12)
== END 2023-08-11 16:24 | disposition home or self-care (01) ==
PROVIDERS: Emergency Provider Emergency Medicine; PCP Family Medicine
DX: M54.50 Low back pain, unspecified (principal); Z79.899 Other long term (current) drug therapy
CPT/HCPCS: 72100; 96372; 99284; J1885

== ENCOUNTER 2024-05-04 10:44 | Emergency (ER) | payer MEDICAID, SELFPAY ==
--- NOTE | ~2024-05-04 | XR_ITS ---
EXAMINATION: XR FOOT, RIGHT CLINICAL INFORMATION: Plantar wound COMPARISON: None available. TECHNIQUE: AP, lateral, and oblique views of the right foot. FINDINGS: Soft tissue defect along the lateral/plantar aspect of the midfoot. Surgical resection or chronic erosion of the cuboid, 4th and 5th metatarsal bases. If concern for active osteomyelitis, MRI would be recommended to evaluate. There has been amputation of the 2nd metatarsal head and 2nd toe. 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 Large heel spur. XR/XR foot RT min 3V IMPRESSION: Soft tissue defect along the lateral/plantar aspect of the midfoot. Surgical resection or chronic erosion of the cuboid, 4th and 5th metatarsal bases. If concern for active osteomyelitis, MRI would be recommended to evaluate. Electronically signed by: Jame Madera MD 05/04/2024 03:09 PM EDT
--- NOTE | 2024-05-04 11:13 | ED_ITS ---
HPI - General Adult General Chief complaint: Wound/Laceration Stated complaint: r foot pain-discoloration Time Seen by Provider: 05/04/24 21:06 Source: patient Mode of arrival: ambulatory Limitations: no limitations History of Present Illness HPI narrative: Patient is a 58-year-old male presenting to emergency department for evaluation of right foot wound along the plantar lateral aspect. He states that when looking at the foot today he noticed a streak of black along the dried callused skin which is abnormal for him. He also states he has increased pain to the foot today. He follows with the wound clinic here at [facility], last seen by them approximately 2 weeks ago. Not currently on any antibiotics. Denies associated fevers, chills, pus-like discharge, surrounding redness or swelling. He has had 3 prior surgeries for osteomyelitis to this foot most recently in October of 2023 at [facility]. Related Data Home Medications ?Medication ?Instructions ?Recorded ?Confirmed amlodipine 10 mg tablet 10 mg PO DAILY 04/10/23 bisacodyl 5 mg tablet (Laxative 5 mg PO BEDTIME 04/10/23 (bisacodyl)) escitalopram oxalate 10 mg tablet 10 mg PO DAILY 04/10/23 flecainide 100 mg tablet 100 mg PO Q12H 04/10/23 insulin glargine 100 unit/mL 20 unit subcut DAILY 04/10/23 subcutaneous solution (Lantus U-100 Insulin) insulin lispro 100 unit/mL 1 sliding scale dose subcut 04/10/23 subcutaneous half-unit pen USEASDIRECTD lisinopril 20 mg tablet 20 mg PO DAILY 04/10/23 lorazepam 1 mg tablet 1 mg PO DAILY PRN 04/10/23 lorazepam 1 mg tablet 1 mg PO DAILY PRN 04/10/23 metoprolol succinate 25 mg 25 mg PO DAILY 04/10/23 tablet,extended release 24 hr mirtazapine 15 mg tablet 15 mg PO DAILY 04/10/23 ondansetron 8 mg disintegrating 8 mg PO Q12H 04/10/23 tablet oxycodone 5 mg capsule 5 mg PO BID PRN 04/10/23 pregabalin 50 mg capsule 50 mg PO DAILY 04/10/23 probenecid 500 mg tablet 500 mg PO BID 04/10/23 Previous Rx's ?Medication ?Instructions ?Recorded amoxicillin 500 mg capsule 500 mg PO TID 14 days #42 caps 06/03/23 cyclobenzaprine 10 mg tablet 10 mg PO BEDTIME PRN muscle spasm 08/11/23 #7 tabs ketorolac 10 mg tablet 10 mg PO TID PRN pain 5 days #15 08/11/23 tabs lidocaine 5 % topical patch 1 patch topical DAILY PRN pain #15 08/11/23 ea Allergies Allergy/AdvReac Type Severity Reaction Status Date / Time hydrocodone [From Vicodin] Allergy Severe Unknown Verified 05/04/24 11:20 lorazepam Allergy Severe Unknown Verified 05/04/24 11:20 shellfish derived Allergy Severe Anaphylaxis Verified 05/04/24 11:20 gabapentin Allergy Unknown Unknown Uncoded 05/04/24 11:20 [facility] Past Medical History Medical History Osteomyelitis Osteomyelitis of right foot Lower back injury Anxiety Hypertension Diabetes Social History Social History Unable to assess alcohol history related to: Unknown Alcohol intake: current Alcohol intake frequency: holidays/special occasions only Smoked in Last 30 Days: No Use of substances other than those prescribed or required for medical reasons: No Substance Use Type: Marijuana Advance Directives: No Advance Directives Information Provided: No Physical Exam ED Vital Signs: Vital Signs - 24 hr 05/04/24 11:18 05/04/24 21:04 05/05/24 00:12 Temperature 97.4 F 98.2 F 98.0 F Pulse Rate 71 65 67 Respiratory Rate 16 18 18 Blood Pressure 127/70 154/68 H 148/76 H Pulse Oximetry 97 99 97 Oxygen Delivery Method Room Air Room Air Room Air BMI result Body Mass Index 28.5 Course Course Course Narrative: This is a rapid medical exam performed by Rich Hayes NP: Additional HPI, ROS, PE not included below will be deferred to primary provider. Patient is a 58-year-old male with history of T1DM, osteomyelitis presenting to the ED with complaint of color change to wound on his right foot. Reports multiple recent surgeries at [facility]. Goes to wound care here. Denies fevers. Plan: labs, xray Reevaluation(s) Reevaluation #1: Renal function improved back to baseline after receiving 1 L IV fluids. At this time feel that he is stable for discharge, close outpatient follow-up with his primary care and wound clinic. Discussed strict return precautions. All questions answered. Stable for discharge Medications Administered Discontinued Medications Generic Name Dose Route Start Last Admin Trade Name Kamryn PRN Reason Stop Dose Admin Sodium Chloride 1,000 mls @ 999 mls/hr 05/04/24 22:00 05/05/24 00:13 Ns IV 05/04/24 23:00 Infused .Q1H1M BANDAR Infusion Morphine Sulfate 4 mg 05/04/24 21:51 05/04/24 22:56 Morphine Sulfate 4 Mg/Ml Cartridge IVPUSH 05/04/24 21:52 4 mg ONCE ONE Administration Protocol Medical Decision Making Medical Decision Making [facility] Narrative: Patient is a 58-year-old male past medical history of type 1 diabetes, osteomyelitis of the right foot, compression fractures of the lumbar spine for which he is on chronic pain management with oxycodone for who presents emergency department for evaluation of concern for area black discoloration sudden in pain of his right foot as per HPI. On evaluation CBC is without leukocytosis or left shift, he has a normocytic anemia that does not meet transfusion criteria, no thrombocytopenia. Inflammatory markers elevated with ESR of 32, CRP minimally elevated 0.92. No electrolyte derangement. Creatinine of 1.68, last prior available from May of 2023; 1.1, unclear of any recent renal function. Patient does not recall having abnormal renal function in the past when asked. Although he does admit that he likely has not had blood work sent his surgery in October of 2023. Patient received 1 L normal saline IV fluid. XR reviewed and there was soft tissue defect along the lateral plantar aspect of the mid foot concern for surgical resection or chronic erosion. As previously mentioned he has had multiple surgeries to the foot, unfortunately unable to compare most recent imaging as they were not at this hospital. On evaluation of his wound there is superficial debris where he was concern for a black appearance which was removed from the callused skin surrounding here. I suspect the x-ray changes are likely chronic in the setting of his prior surgery. Discussed with patient close outpatient follow-up with his wound care clinic. Strict return precautions. Encouraged to increase oral intake and follow-up closely with his primary care doctor. Differential Diagnosis Differential Diagnoses: The differential diagnosis associated with the presentation includes (See narrative above) Admission/Observation Consideration of admission/observation: Escalation of care including admission/observation considered (See narrative above) Lab Data MDM Lab Attestation statement: I reviewed the patient's lab results. (See narrative above) 05/04/24 11:27 05/05/24 01:06 Labs: Lab Results 05/04/24 05/05/24 Range/Units 11:27 01:06 WBC 7.4 (4.8-10.8) X10*3/uL RBC 3.61 L (4.60-5.80) X10*6/uL Hgb 10.4 L (14.0-18.0) g/dl Hct 32.2 L (42.0-52.0) % MCV 89.2 (80.0-98.0) fL MCH 28.8 (27.0-33.0) pg MCHC 32.3 (31.0-36.0) g/dl RDW 14.3 (11.0-16.0) % Plt Count 221 (160-400) X10*3/uL MPV 9.9 (9.4-12.4) fL Immature Gran % (Auto) 0.3 (0.0-0.4) % Neut % (Auto) 60.0 (45-73) % Lymph % (Auto) 28.4 (20-40) % Morrow % (Auto) 5.9 (2-11) % Eos % (Auto) 5.1 H (0-4) % Baso % (Auto) 0.3 (0-2) % Lymph # (Auto) 2.1 (1.2-4.9) X10*3/uL Morrow # (Auto) 0.4 (0.1-1.2) X10*3/uL Eos # (Auto) 0.4 (0.0-0.4) X10*3/uL Baso # (Auto) 0.0 (0.0-0.2) X10*3/uL Abs Immat Gran (auto) 0.02 (0.00-0.03) X10*3/uL Absolute Neuts (auto) 4.4 (2.0-8.3) x10*3/uL Absolute Nucleated RBC 0.000 (0.0-0.012) X10*3/uL Nucleated RBC % (auto) 0.0 (0.0-0.2) /100WBC ESR 32 H (0-15) MM/HR Sodium 141 141 (135-145) mmol/L Potassium 3.4 3.7 (3.3-5.1) mmol/L Chloride 107 108 (96-108) mmol/L Carbon Dioxide 29 28 (22-29) mmol/L Anion Gap 8 L 9 L (12-20) BUN 16 14 (9-16) mg/dL Creatinine 1.68 H 1.26 (0.5-1.4) mg/dL Estim Creat Clear Calc 57.3 76.5 Estimated GFR 42 59 Random Glucose 157 H 157 H (60-115) mg/dL Calcium 9.0 9.2 (8.4-10.2) mg/dL Total Bilirubin 0.2 (0.0-1.0) mg/dL AST 16 (5-37) U/L ALT 15 (0-40) U/L Alkaline Phosphatase 94 (39-117) U/L C-Reactive Protein 0.92 H (< or = 0.50) mg/dL Total Protein 7.0 (6.5-8.0) g/dL Albumin 3.7 (3.5-5.0) g/dL Independent Interpretation I performed an independent interpretation of an: Plain X-Ray Radiology Impression Discussion of test interpretation with radiology: I have reviewed the radiologist's reading. Radiologist Impression: XR/XR foot RT min 3V IMPRESSION: Soft tissue defect along the lateral/plantar aspect of the midfoot. Surgical resection or chronic erosion of the cuboid, 4th and 5th metatarsal bases. If concern for active osteomyelitis, MRI would be recommended to evaluate. External Record Review External record reviewed: Outpatient record Prescription Management I considered prescription management with: Antibiotic (See narrative above) Discharge Plan Discharge Clinical Impression: ALESSIA (acute kidney injury), Chronic ulcer of right foot Patient Disposition: Home, Self-Care Instructions: Acute Kidney Injury (DC) Additional Instructions: As discussed your kidney function was abnormal today, I suspect this is likely due to dehydration, you received IV fluids in your renal function improved fact what appears to be your baseline when compared to prior labs at this hospital. Your white blood cell count is normal today, it is very important that you follow-up with the wound clinic as scheduled, and monitor for any acute changes, if you develop increasing redness, swelling, pus-like drainage, foul smell, fevers, chills, he should seek re-evaluation promptly Prescriptions: No Action ketorolac 10 mg tablet 10 mg PO TID PRN (Reason: pain) 5 Days Qty: 15 0RF lidocaine 5 % adhesive patch,medicated 1 patch topical DAILY PRN (Reason: pain) Qty: 15 0RF Rx Instructions: leave on most painful area for up to 12 hrs cyclobenzaprine 10 mg tablet 10 mg PO BEDTIME PRN (Reason: muscle spasm) Qty: 7 0RF lorazepam 1 mg tablet 1 mg PO DAILY PRN insulin lispro 100 unit/mL insulin pen, half-unit 1 sliding scale dose subcut USEASDIRECTD oxycodone 5 mg capsule 5 mg PO BID PRN amlodipine 10 mg tablet 10 mg PO DAILY Laxative (bisacodyl) 5 mg tablet 5 mg PO BEDTIME metoprolol succinate 25 mg tablet extended release 24 hr 25 mg PO DAILY probenecid 500 mg tablet 500 mg PO BID lorazepam 1 mg tablet 1 mg PO DAILY PRN flecainide 100 mg tablet 100 mg PO Q12H insulin glargine [Lantus U-100 Insulin] 100 unit/mL solution 20 unit subcut DAILY mirtazapine 15 mg tablet 15 mg PO DAILY lisinopril 20 mg tablet 20 mg PO DAILY escitalopram oxalate 10 mg tablet 10 mg PO DAILY ondansetron 8 mg tablet,disintegrating 8 mg PO Q12H pregabalin 50 mg capsule 50 mg PO DAILY amoxicillin 500 mg capsule 500 mg PO TID 14 Days Qty: 42 0RF Referrals: Flako Callahan MD [Primary Care Provider] - Print Language: Mauritanian
[2024-05-04 11:18] VITALS: BP 127/70; PULSE 71; RESP 16; TEMP 36.3; O2SAT 97; BMI 28.5
[2024-05-04 11:31] LABS: MANUAL DIFF FLAG NO
[2024-05-04 11:34] LABS: Basophils Percent Auto 0.3 % (0-2); Eosinophils Absolute Auto 0.4 X10*3/uL (0.0-0.4); Eosinophils Percent Auto 5.1 % (0-4); Hematocrit 32.2 % (42.0-52.0); Hemoglobin 10.4 g/dl (14.0-18.0); Imm Gran Abs Auto 0.02 X10*3/uL (0.00-0.03); Imm Gran Pct Auto 0.3 % (0.0-0.4); Lymphocytes Absolute Auto 2.1 X10*3/uL (1.2-4.9); Lymphocytes Percent Auto 28.4 % (20-40); Mean Corpuscular HGB Conc 32.3 g/dl (31.0-36.0); Mean Corpuscular Hemoglobin 28.8 pg (27.0-33.0); Mean Corpuscular Volume 89.2 fL (80.0-98.0); Mean Platelet Volume 9.9 fL (9.4-12.4); Monocytes Absolute Auto 0.4 X10*3/uL (0.1-1.2); Monocytes Percent Auto 5.9 % (2-11); Neutrophils Absolute Auto 4.4 x10*3/uL (2.0-8.3); Platelet Count 221 X10*3/uL (160-400); Red Blood Count 3.61 X10*6/uL (4.60-5.80); Red Cell Distribution Width 14.3 % (11.0-16.0); White Blood Count 7.4 X10*3/uL (4.8-10.8)
[2024-05-04 11:47] LABS: Alanine Aminotransferase 15 U/L (0-40); Albumin Level 3.7 g/dL (3.5-5.0); Alkaline Phosphatase 94 U/L (39-117); Anion Gap 8 (12-20); Aspartate Amino Transferase 16 U/L (5-37); Bilirubin Total 0.2 mg/dL (0.0-1.0); Blood Urea Nitrogen 16 mg/dL (9-16); C Reactive Protein 0.92 mg/dL (< or = 0.50); Carbon Dioxide 29 mmol/L (22-29); Chloride 107 mmol/L (96-108); Creatinine Clr Calc Pharmacy 57.3; Estimated Glomerular Filt Rate 42; Glucose Random 157 mg/dL (60-115); Potassium 3.4 mmol/L (3.3-5.1); Sodium 141 mmol/L (135-145)
[2024-05-04 12:19] LABS: Erythrocyte Sedimentation Rate 32 MM/HR (0-15)
[2024-05-04 21:04] VITALS: BP 154/68; PULSE 65; RESP 18; TEMP 36.8; O2SAT 99
[2024-05-04] MEDS: 0.9 % Sodium Chloride 1,000 ML 999 ML IV (22:56)
[2024-05-04] MEDS: Morphine Sulfate 4 MG/ML CARTRIDGE IVPUSH (22:56)
[2024-05-05 00:12] VITALS: BP 148/76; PULSE 67; RESP 18; TEMP 36.7; O2SAT 97
[2024-05-05 01:25] LABS: Anion Gap 9 (12-20); Blood Urea Nitrogen 14 mg/dL (9-16); Calcium 9.2 mg/dL (8.4-10.2); Carbon Dioxide 28 mmol/L (22-29); Chloride 108 mmol/L (96-108); Creatinine Clr Calc Pharmacy 76.5; Estimated Glomerular Filt Rate 59; Glucose Random 157 mg/dL (60-115); Potassium 3.7 mmol/L (3.3-5.1); Sodium 141 mmol/L (135-145)
[2024-05-05 02:28] VITALS: BP 157/85; PULSE 72; RESP 18; TEMP 36.7; O2SAT 98
== END 2024-05-05 02:29 | disposition home or self-care (01) ==
PROVIDERS: Nurse Practitioner Family; Registered Nurse Emergency; Emergency Provider Emergency Medicine; PCP Family Medicine
DX: L97.519 Non-pressure chronic ulcer of other part of right foot with unspecified severity (principal); M79.671 Pain in right foot; M86.8X7 Other osteomyelitis, ankle and foot; N17.8 Other acute kidney failure; Z79.899 Other long term (current) drug therapy
CPT/HCPCS: 36415; 73630; 80048; 80053; 85025; 85652; 86140; 96361; 96374; 99284; J2270

== ENCOUNTER 2025-02-28 13:15 | Outpatient (RCR) | payer OTHER, SELFPAY ==
[2022-10-29 15:36] LABS: MANUAL DIFF FLAG NO
[2022-10-29 15:56] LABS: Hematocrit 38.7 % (42.0-52.0); Hemoglobin 12.5 g/dl (14.0-18.0); Imm Gran Abs Auto 0.03 X10*3/uL (0.00-0.03); Imm Gran Pct Auto 0.4 % (0.0-0.4); Lymphocytes Absolute Auto 1.4 X10*3/uL (1.2-4.9); Mean Corpuscular HGB Conc 32.3 g/dl (31.0-36.0); Mean Corpuscular Hemoglobin 28.1 pg (27.0-33.0); Mean Corpuscular Volume 87.0 fL (80.0-98.0); NRBC Abs Auto 0.000 X10*3/uL (0.0-0.012); NRBC Pct Auto 0.0 /100WBC (0.0-0.2); Platelet Count 303 X10*3/uL (160-400); Red Blood Count 4.45 X10*6/uL (4.60-5.80); White Blood Count 7.3 X10*3/uL (4.8-10.8)
[2022-10-29 16:06] LABS: Hemoglobin A1C 176.3016 umol/L; Total Hemoglobin (HGBA1C) 3241.9713 umol/L
[2022-10-29 16:27] LABS: Anion Gap 13 (12-20); Blood Urea Nitrogen 18 mg/dL (9-16); Calcium 9.6 mg/dL (8.4-10.2); Carbon Dioxide 25 mmol/L (22-29); Chloride 108 mmol/L (96-108); Estimated Glomerular Filt Rate 49; Potassium 3.9 mmol/L (3.3-5.1); Prealbumin 26.0 mg/dL (20-40); Sodium 142 mmol/L (135-145)
[2022-11-17 14:25] LABS: Cannabinoid Screen Urine POSITIVE (Not Detect)
[2023-05-12 12:25] LABS: MANUAL DIFF FLAG NO
[2023-05-12 12:58] LABS: Hematocrit 36.9 % (42.0-52.0); Hemoglobin 11.8 g/dl (14.0-18.0); Imm Gran Abs Auto 0.02 X10*3/uL (0.00-0.03); Imm Gran Pct Auto 0.3 % (0.0-0.4); Lymphocytes Absolute Auto 1.6 X10*3/uL (1.2-4.9); Mean Corpuscular HGB Conc 32.0 g/dl (31.0-36.0); Mean Corpuscular Hemoglobin 28.9 pg (27.0-33.0); Mean Corpuscular Volume 90.2 fL (80.0-98.0); NRBC Abs Auto 0.000 X10*3/uL (0.0-0.012); NRBC Pct Auto 0.0 /100WBC (0.0-0.2); Platelet Count 235 X10*3/uL (160-400); Red Blood Count 4.09 X10*6/uL (4.60-5.80); White Blood Count 6.2 X10*3/uL (4.8-10.8)
[2023-05-12 13:15] LABS: Hemoglobin A1C 150.3423 umol/L; Total Hemoglobin (HGBA1C) 2692.0930 umol/L
[2023-05-12 13:53] LABS: Anion Gap 11 (12-20); Blood Urea Nitrogen 12 mg/dL (9-16); Calcium 9.2 mg/dL (8.4-10.2); Carbon Dioxide 28 mmol/L (22-29); Chloride 106 mmol/L (96-108); Estimated Glomerular Filt Rate > 60; Potassium 3.8 mmol/L (3.3-5.1); Sodium 141 mmol/L (135-145)
[2023-05-12 14:40] LABS: Prealbumin 29.0 mg/dL (20-40)
--- NOTE | 2023-05-18 11:42 | ECG_ITS ---
Test Reason : preproc exam Blood Pressure : / mmHG Vent. Rate : 064 BPM Atrial Rate : 064 BPM P-R Int : 206 ms QRS Dur : 098 ms QT Int : 456 ms P-R-T Axes : 018 051 018 degrees QTc Int : 470 ms Sinus rhythm with occasional Premature ventricular complexes Otherwise normal ECG No previous ECGs available Referred By: Shahrzad Monzon Electronically Signed By:SAMMY WOOTEN
--- NOTE | ~2025-02-28 | XR_ITS ---
EXAMINATION: XR CHEST CLINICAL INFORMATION: Pre-HBO treatments. COMPARISON: 10/29/2022. TECHNIQUE: 2 views of the chest were obtained. FINDINGS: Extreme lung apices are not included. No significant abnormality is noted involving the heart, lungs, mediastinum, bony thorax or soft tissues. XR/XR chest 2V IMPRESSION: Unremarkable examination with no interval change.
--- NOTE | ~2025-02-28 | XR_ITS ---
EXAMINATION: XR CHEST CLINICAL INFORMATION: Prehyperbaric oxygen therapy COMPARISON: None available. TECHNIQUE: 2 views of the chest were obtained. FINDINGS: No significant abnormality is noted involving the heart, lungs, mediastinum, bony thorax or soft tissues. XR/XR chest 2V IMPRESSION: No acute disease.
--- NOTE | ~2025-02-28 | XR_ITS ---
EXAMINATION: XR CHEST 2 VIEWS CLINICAL INFORMATION: Hyperbaric oxygen pre-treatment. COMPARISON: Radiographs dated 05/12/2023 and 10/29/2022. TECHNIQUE: Frontal and lateral views of the chest were obtained. FINDINGS: The heart, great vessels, pulmonary vasculature and mediastinum are normal. The lungs show no focal infiltrate, effusion or pneumothorax. There is no acute osseous abnormality. XR/XR chest 2V IMPRESSION: No active cardiopulmonary disease.
--- NOTE | ~2025-02-28 | XR_ITS ---
EXAMINATION: XR FOOT, LEFT CLINICAL INFORMATION: Left foot ulcers; question osteomyelitis. COMPARISON: None available. TECHNIQUE: AP, lateral, and oblique views of the left foot. FINDINGS: There have been prior second and third transmetatarsal amputations. The amputation margins appear relatively sharp, with adjacent heterotopic bone formation. There is an old, healed fracture of the fourth metatarsal head, with angulation and remodeling. There are degenerative changes of the midfoot. No right ankle joint effusion is seen. Boehler's angle is normal. There is a minimal plantar calcaneal spur. There are diffuse atherosclerotic calcifications. There is mild generalized soft tissue swelling, and a soft tissue ulceration is seen in the plantar forefoot. No abnormal tracking soft tissue gas or foreign body is seen. XR/XR foot LT min 3V IMPRESSION: There have been prior second and third transmetatarsal amputations. The amputation margins are relatively sharp, with heterotopic bone formation. There is a plantar soft tissue ulceration, without obvious adjacent bone erosion, periosteal thickening or gas to suggest acute osteomyelitis. If of continued clinical concern, consider MRI evaluation as a more sensitive imaging modality for acute osteomyelitis. Electronically signed by: Cristino Tovar MD 07/14/2024 12:41 PM [facility]
== END 2025-03-22 11:30 | disposition expired ==
LOC: HO.WCC 13:15
PROVIDERS: Physician Assistant; PCP Family Medicine; Visit Provider Surgery Surgical Oncology
DX: E11.621 Type 2 diabetes mellitus with foot ulcer (principal); L97.522 Non-pressure chronic ulcer of other part of left foot with fat layer exposed; L97.512 Non-pressure chronic ulcer of other part of right foot with fat layer exposed; T81.31XA Disruption of external operation (surgical) wound, not elsewhere classified, initial encounter; L84 Corns and callosities; K31.84 Gastroparesis; F40.9 Phobic anxiety disorder, unspecified; X58.XXXA Exposure to other specified factors, initial encounter; Y93.9 Activity, unspecified; Y92.9 Unspecified place or not applicable; Y99.9 Unspecified external cause status; Z89.421 Acquired absence of other right toe(s); Z79.4 Long term (current) use of insulin; Z79.899 Other long term (current) drug therapy; Z79.891 Long term (current) use of opiate analgesic
CPT/HCPCS: 11042; 11043; 11044; 11045; 11047; 17250; 36415; 71046; 73630; 80048; 80307; 83036; 84134; 85025; 85652; 86140; 87070; 87073; 87077; 87186; 87205; 93005; 99183; 99213; J0696